=== PATIENT | female | born 1965 | race Hispanic/Latino ===

== ENCOUNTER 2020-07-05 04:23 | Emergency (ER) | payer BC ==
[2020-07-05] MEDS ORDERED: MORPHINE 4 MG/ML SYR ONE ×2 (04:55→06:06)
[2020-07-05] MEDS ORDERED: ONDANSETRON 4 MG/2 ML VIAL ONE (04:55)
[2020-07-05 05:10] LABS: Absolute Lymphocytes (CBC) 2.7 K/uL (0.7-4.9); Basophils % 0.7 % (0-1.3); Hematocrit 42.8 % (36.0-45.0); Lymphocytes % 46.6 % (15.3-44.8); MPV 7.3 fL (7.6-11.3)
[2020-07-05 05:24] LABS: Urine Blood 2+ (NEG); Urine Glucose TRACE (NEG); Urine Protein TRACE (NEG)
[2020-07-05 05:26] LABS: Albumin 3.9 g/dL (3.4-5.0); Bilirubin Direct 0.2 mg/dL (0-0.2); Bilirubin Total 1.1 mg/dL (0.2-1.0); Potassium 3.6 mmol/L (3.5-5.1)
[2020-07-05 05:35] LABS: Urine Bacteria <20 /HPF (<20); Urine Culture Reflex Order REFLEXED; Urine Mucus 1+ /HPF (NONE SEEN)
[2020-07-05] MEDS ORDERED: CEFTRIAXONE/SWI 1gm 1 GM/10 ML SYR ONE (05:45)
--- NOTE | 2020-07-05 05:51 | ER ---
Nurse's Notes [facility] Name: Velma Thompson Age: 55 yrs Sex: Female : 1965 Arrival Date: 07/05/2020 Time: 04:26 Bed 20 Private MD: Diagnosis: Calculus of ureter-Passed;Urinary tract infection, site not specified Presentation: 07/05 04:30 Chief complaint: Patient states: she started having severe abdominal pain several hours bb ago to right flank area. Coronavirus screen: At this time, the client does not indicate any symptoms associated with coronavirus-19. Ebola Screen: No symptoms or risks identified at this time. Initial Sepsis Screen: Does the patient meet any 2 criteria? No. Patient's initial sepsis screen is negative. Does the patient have a suspected source of infection? No. Patient's initial sepsis screen is negative. Risk Assessment: Do you want to hurt yourself or someone else? Patient reports no desire to harm self or others. Onset of symptoms was July 05, 2020. 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 - Social history:: Smoking status: Patient denies any tobacco usage or history of. - Family history:: not pertinent. - Hospitalizations: : No recent hospitalization is reported. Screenin:30 Abuse screen: Denies threats or abuse. Nutritional screening: No deficits noted. bb Tuberculosis screening: No symptoms or risk factors identified. Fall Risk None identified. Assessment: 04:30 General: Appears uncomfortable, Behavior is cooperative, agitated. Pain: Complains of bb pain in right flank Pain currently is 10 out of 10 on a pain scale. Neuro: Level of Consciousness is awake, alert, obeys commands, Oriented to person, place, time, situation. Cardiovascular: Capillary refill < 3 seconds Patient's skin is warm and dry. Respiratory: Respiratory effort is labored, pt is moaning with pain. GI: Abdomen is obese, Reports right flank pain. Derm: Skin is pink, warm \T\ dry. Musculoskeletal: Circulation, motion, and sensation intact. 04:59 Reassessment: pt states the pain has subsided now is 6/10. bb 05:07 Reassessment: pt ambulated with steady gait to the bathroom for urine sample CT at bedside for transport to CT scan. 05:20 Reassessment: Patient is alert, oriented x 3, equal unlabored respirations, skin bb warm/dry/pink. pt returned from CT scan states pain is about the same 6/10 awaiting diagnostic results, family at bedside. 05:50 Reassessment: Patient is alert, oriented x 3, equal unlabored respirations, skin bb warm/dry/pink. Dr Del Real at bedside for discussion of findings and plan of care pt to be discharged home with 3 prescriptions pt verbalized understanding of and agrees to plan of care discharge instructions given pt assisted to exit via wheelchair by this RN accompanied by spouse. Vital Signs: 04:30 BP 147 / 101; Pulse 77; Resp 20 S; Temp 97.7(O); Pulse Ox 100% on R/A; Weight 97.52 kg bb (R); Height 5 ft. 2 in. (157.48 cm) (R); Pain 10/10; 05:21 BP 139 / 69; Pulse 70; Resp 18 S; Pulse Ox 99% on R/A; Pain 6/10; bb 06:00 BP 116 / 75; Pulse 67; Resp 14 S; Pulse Ox 95% on R/A; Pain 4/10; bb 04:30 Body Mass Index 39.32 (97.52 kg, 157.48 cm) bb ED Course: 04:26 Patient arrived in ED. cl3 04:28 Carlos Del Real MD is Attending Physician. rn 04:30 Arm band placed on Patient placed in an exam room, on a stretcher, on pulse oximetry. bb 04:30 Family accompanied patient. bb 04:30 Patient has correct armband on for positive identification. Call light in reach. Side bb rails up X 1. Adult w/ patient. Pulse ox on. NIBP on. 04:45 Initial lab(s) drawn, by me, sent to lab. Inserted saline lock: 20 gauge in left bb antecubital area, using aseptic technique. Blood collected. 04:51 Ciarra Jacob, RN is Primary Nurse. bb 04:53 Triage completed. bb 05:00 Urine collected: clean catch specimen, reagan colored. bb 05:27 CT Stone Protocol In Process Unspecified. EDMS 06:07 No provider procedures requiring assistance completed. IV discontinued, intact, bb bleeding controlled, No redness/swelling at site. Pressure dressing applied. Administered Medications: 04:47 Drug: morphine 4 mg Route: IVP; Site: left antecubital; bb 04:59 Follow up: Response: Pain is decreased; RASS: Alert and Calm (0) bb 04:48 Drug: Zofran (Ondansetron) 4 mg Route: IVP; Site: left antecubital; bb 05:21 Follow up: Response: No adverse reaction bb 05:36 Drug: Rocephin 1 grams Route: IV; Rate: calculated rate; Site: left antecubital; bb 05:42 Follow up: Response: No adverse reaction; IV Status: Completed infusion; IV Intake: 10mlbb 05:50 Drug: morphine 4 mg Route: IVP; Site: left antecubital; bb 06:00 Follow up: Response: Pain is decreased bb Intake: 05:42 IV: 10ml; Total: 10ml. bb Outcome: 05:50 Discharge ordered by . rn 06:08 Discharged to home via wheelchair, with family. bb 06:08 Condition: stable 06:08 Discharge instructions given to patient, Instructed on discharge instructions, follow up and referral plans. medication usage, Demonstrated understanding of instructions, follow-up care, medications, Prescriptions given X 3. 06:10 Patient left the ED. bb Signatures: Dispatcher [employer] EDMS Ciarra Jacob, RUCHI RN Carlos Lynch MD MD rn Lewis, Charde cl3
--- NOTE | 2020-07-05 05:51 | EDPHYS ---
Physician Documentation [facility] Name: Velma Thompson Age: 55 yrs Sex: Female : 1965 Arrival Date: 07/05/2020 Time: 04:26 Bed 20 Private MD: ED Physician Carlos Del Real HPI: 07/05 04:42 This 55 yrs old Female presents to ER via Unassigned with complaints of Low rn Abdominal Pain. 04:42 The patient presents with abdominal pain right lower quadrant. Onset: The rn symptoms/episode began/occurred just prior to arrival. The symptoms radiate to right back. Associated signs and symptoms: Pertinent negatives: blood in stools, diarrhea, fever, shortness of breath. The symptoms are described as shooting. Modifying factors: The symptoms are alleviated by nothing, the symptoms are aggravated by nothing. Severity of pain: At its worst the pain was moderate in the emergency department the pain is unchanged. The patient has not experienced similar symptoms in the past. The patient has not recently seen a physician. 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 - Social history:: Smoking status: Patient denies any tobacco usage or history of. - Family history:: not pertinent. - Hospitalizations: : No recent hospitalization is reported. ROS: 04:42 Constitutional: Negative for fever, chills, and weight loss, Cardiovascular: Negative rn for chest pain, palpitations, and edema, Respiratory: Negative for shortness of breath, cough, wheezing, and pleuritic chest pain, Abdomen/GI: + abd pain Back: + right flank pain : Negative for injury, bleeding, discharge, and swelling, MS/Extremity: Negative for injury and deformity, Neuro: Negative for headache, weakness, numbness, tingling, and seizure. Exam: 04:42 Constitutional: This is a well developed, well nourished patient who is awake, alert, rn appears uncomfortable, moaning Head/Face: Normocephalic, atraumatic. Cardiovascular: Tachycardic, regular Respiratory: No increased work of breathing, no retractions or nasal flaring. Abdomen/GI: soft, non-tender, no masses Skin: Warm, dry MS/ Extremity: Pulses equal, no cyanosis. Neuro: Awake and alert, GCS 15 Vital Signs: 04:30 BP 147 / 101; Pulse 77; Resp 20 S; Temp 97.7(O); Pulse Ox 100% on R/A; Weight 97.52 kg bb (R); Height 5 ft. 2 in. (157.48 cm) (R); Pain 10/10; 05:21 BP 139 / 69; Pulse 70; Resp 18 S; Pulse Ox 99% on R/A; Pain 6/10; bb 06:00 BP 116 / 75; Pulse 67; Resp 14 S; Pulse Ox 95% on R/A; Pain 4/10; bb 04:30 Body Mass Index 39.32 (97.52 kg, 157.48 cm) bb MDM: 04:28 Patient medically screened. rn 05:49 Differential diagnosis: Pyelonephritis, Ureterolithiasis, urinary tract infection. Data rn reviewed: vital signs, nurses notes, lab test result(s), radiologic studies, CT scan, and as a result, I will discharge patient. Counseling: I had a detailed discussion with the patient and/or guardian regarding: the historical points, exam findings, and any diagnostic results supporting the discharge/admit diagnosis, lab results, radiology results, the need for outpatient follow up, to return to the emergency department if symptoms worsen or persist or if there are any questions or concerns that arise at home. Response to treatment: the patient's symptoms have markedly improved after treatment, and as a result, I will discharge patient. Special discussion: I discussed with the patient/guardian in detail that at this point there is no indication for admission to the hospital. It is understood, however, that if the symptoms persist or worsen the patient needs to return immediately for re-evaluation. 07/05 04:29 Order name: Basic Metabolic Panel rn 07/05 04:29 Order name: CBC with Diff; Complete Time: 05:13 rn 07/05 04:29 Order name: Hepatic Function rn 10/21 04:29 Order name: Lipase rn 07/05 04:29 Order name: Urine Microscopic Only rn 07/05 05:16 Order name: Urine Dipstick--Ancillary (enter results); Complete Time: 05:25 tt3 07/05 04:29 Order name: IV Saline Lock; Complete Time: 04:58 rn 07/05 04:29 Order name: Labs collected and sent; Complete Time: 04:58 rn 07/05 04:34 Order name: CT Stone Protocol rn 07/05 05:36 Order name: Urine Culture EDMS 07/05 04:29 Order name: Urine Dipstick-Ancillary (obtain specimen); Complete Time: 05:22 rn Administered Medications: 04:47 Drug: morphine 4 mg Route: IVP; Site: left antecubital; bb 04:59 Follow up: Response: Pain is decreased; RASS: Alert and Calm (0) bb 04:48 Drug: Zofran (Ondansetron) 4 mg Route: IVP; Site: left antecubital; bb 05:21 Follow up: Response: No adverse reaction bb 05:36 Drug: Rocephin 1 grams Route: IV; Rate: calculated rate; Site: left antecubital; bb 05:42 Follow up: Response: No adverse reaction; IV Status: Completed infusion; IV Intake: 10mlbb 05:50 Drug: morphine 4 mg Route: IVP; Site: left antecubital; bb 06:00 Follow up: Response: Pain is decreased bb Disposition: 07/05/20 05:50 Discharged to Home. Impression: Calculus of ureter - Passed, Urinary tract infection, site not specified. - Condition is Stable. - Discharge Instructions: Kidney Stones, Renal Colic, Urinary Tract Infection, Adult. - Prescriptions for Zofran ODT 4 mg Oral tablet,disintegrating - place 1 tablet by TRANSLINGUAL route every 8 hours As needed; 20 tablet. Tylenol- Codeine #3 300-30 mg Oral Tablet - take 1 tablet by ORAL route every 6 hours As needed; 15 tablet. cefpodoxime 100 mg Oral Tablet - take 2 tablet by ORAL route every 12 hours for 10 days take with food; 40 tablet. - Medication Reconciliation Form, Thank You Letter, Antibiotic Education, Prescription Opioid Use form. - Follow up: Private Physician; When: As needed; Reason: Recheck today's complaints, Re-evaluation by your physician. - Problem is new. - Symptoms have improved. Signatures: Dispatcher [employer] Ciarra Glynn RN RN Carlos Lynch MD MD harness cleaner: (The following items were deleted from the chart) 06:10 05:50 07/05/2020 05:50 Discharged to Home. Impression: Calculus of ureter - Passed; bb Urinary tract infection, site not specified. Condition is Stable. Forms are Medication Reconciliation Form, Thank You Letter, Antibiotic Education, Prescription Opioid Use. Follow up: Private Physician; When: As needed; Reason: Recheck today's complaints, Re-evaluation by your physician. Problem is new. Symptoms have improved. rn
[2020-07-05 06:21] VITALS: TEMP 97.7
[2020-07-05 06:39] VITALS: BP 116/75; O2SAT 95
--- NOTE | 2020-07-05 10:08 | RAD REPORT ---
EXAM DESCRIPTION: CT - Stone Protocol - 07/05/2020 6:52 am CLINICAL HISTORY: The patient is 55 years old and is Female; right lower abd pain/flank pain TECHNIQUE: Axial computed tomography images of the abdomen and pelvis without intravenous contrast. Sagittal and coronal reformatted images were created and reviewed. This CT exam was performed usi ng one or more of the following dose reduction techniques: automated exposure control, adjustment o f the mA and/or kV according to patient size, and/or use of iterative reconstruction technique. COMPARISON: No relevant prior studies available. FINDINGS: LUNG BASES: Unremarkable. No mass. No consolidation. ABDOMEN: LIVER: The liver is enlarged and mildly fatty. GALLBLADDER AND BILE DUCTS: No calcified stones. No ductal dilation. PANCREAS: Fatty infiltration of the pancreas is present. No ductal dilation. SPLEEN: Unremarkable. ADRENALS: Unremarkable. No mass. KIDNEYS AND URETERS: Mild right hydroureteronephrosis is present. An obstructing calculus is not seen. Perinephric and periureteral stranding is present. The left kidney is normal. STOMACH AND BOWEL: The stomach is distended with food contents and air. The small bowel is abisai l in caliber. A moderate amount of stool is present throughout colon. There is no mucosal thickening or evidence of bowel obstruction. PELVIS: APPENDIX: The appendix is normal in caliber without surrounding inflammation. BLADDER: The bladder is not well distended. REPRODUCTIVE: Unremarkable as visualized. ABDOMEN and PELVIS: INTRAPERITONEAL SPACE: Unremarkable. No free air. No significant fluid collection. BONES/JOINTS: Multilevel degenerative change of the spine is present. SOFT TISSUES: The soft tissues are normal. VASCULATURE: Atherosclerosis of the vasculature is present. No abdominal aortic aneurysm. LYMPH NODES: Unremarkable. No enlarged lymph nodes. IMPRESSION: Mild right hydroureteronephrosis without obstructing calculus. Findings suggest a recent ly passed stone. Electronically signed by: Veda Benitez MD 07/05/2020 5:37 AM CDT Due to temporary technical issues with the PACS/Fluency reporting system, reports are being signed by the in house radiologist without review as a courtesy to ensure prompt reporting. The interpreting r adiologist is fully responsible for the content of the report.
== END 2020-07-05 06:10 | disposition home or self-care (01) ==
LOC: ER 04:23
DX: N20.1 Calculus of ureter (principal); N39.0 Urinary tract infection, site not specified
CPT/HCPCS: 87088; 85025; 87086; 80048; 36415; 80076; 83690; 76377; 74176; J0696; J2405; 81003; 81015

== ENCOUNTER 2021-04-27 12:29 | Inpatient (IN) | payer BC ==
[2021-04-27] MEDS ORDERED: ALBUTEROL 2.5 MG/3 ML NEB SOL ONE (13:53)
[2021-04-27] MEDS ORDERED: IPRATROPIUM BROM 0.5MG/2.5ML ONE ×3 (13:53→21:22)
[2021-04-27 13:58] LABS: Absolute Lymphocytes (CBC) 0.7 K/uL (0.7-4.9); Basophils % 0.6 % (0-1.3); Hematocrit 41.9 % (36.0-45.0); Lymphocytes % 11.8 % (15.3-44.8); MPV 6.9 fL (7.6-11.3); RBC Red Blood Cell Count 4.56 M/uL (3.86-4.86)
[2021-04-27 14:18] LABS: Protime INR 1.19
--- NOTE | 2021-04-27 14:41 | RAD REPORT ---
EXAM DESCRIPTION: RAD - Chest Single View - 04/27/2021 2:34 pm CLINICAL HISTORY: SOB COMPARISON: No comparisons FINDINGS: Moderate patchy bilateral airspace disease per The heart size is within normal limits.No a cute osseous abnormality. No significant pleural effusions or pneumothorax. IMPRESSION: Moderate patchy bilateral airspace disease concerning for multifocal pneumonia, includin g Covid-19.
[2021-04-27 14:46] LABS: ALT/SGPT 45 U/L (12-78); AST/SGOT 77 U/L (15-37); Albumin 3.6 g/dL (3.4-5.0); Alkaline Phosphatase 100 U/L (45-117); BUN Blood Urea Nitrogen 12 mg/dL (7-18); Bicarbonate 30 mmol/L (21-32); Bilirubin Direct 0.3 mg/dL (0-0.2); Bilirubin Total 0.8 mg/dL (0.2-1.0); Ferritin 2342.9 ng/mL (8-388); Glucose Level 122 mg/dL (74-106); Lipase 152 U/L (73-393); Potassium 3.9 mmol/L (3.5-5.1); Protein, Total 8.4 g/dL (6.4-8.2); Sodium Level 133 mmol/L (136-145); Troponin (Emerg Dept Use Only) < 0.02 ng/mL (0.0-0.045)
[2021-04-27] MEDS ORDERED: LEVALBUTEROL 1.25 MG/3 ML NEB ONE (14:50)
[2021-04-27] MEDS ORDERED: dexAMETHasone 10 MG/ML VIAL ONE (14:50)
--- NOTE | 2021-04-27 15:33 | ER ---
Nurse's Notes [facility] Name: Velma Thompson Age: 56 yrs Sex: Female : 1965 Arrival Date: 04/27/2021 Time: 13:09 Bed 6 Private MD: Diagnosis: Other viral pneumonia;SARS-associated coronavirus as the cause of diseases classified elsewhere;Respiratory failure, unspecified with hypoxia-60% plus at home on room air per EMS Presentation: 04/27 13:10 Chief complaint: EMS states: Pt diagnosised with COVID two days ago. Reports SOB today. ss O2sat 69% RA. Coronavirus screen: Client reports previous positive COVID test result. Date of collection: April 25, 2021. Care prior to arrival: 13:10 Method Of Arrival: EMS: [facility] ss 13:10 Acuity: JENNIFER 3 ss 13:56 Acuity: JENNIFER 2 iw Triage Assessment: 13:13 General: Appears uncomfortable, Behavior is calm, cooperative, quiet, Reports fatigue ss for 12-24 hours. Pain: Denies pain. Respiratory: Reports shortness of breath at rest on exertion. Historical: - Allergies: 14:56 No Known Allergies; iw - PMHx: 14:56 Arthritis; iw - Immunization history:: Client reports having NOT received the Covid vaccine. Screenin:05 Abuse screen: Denies threats or abuse. Denies injuries from another. Nutritional iw screening: No deficits noted. Tuberculosis screening: No symptoms or risk factors identified. Assessment: 15:10 Reassessment: pt O2 sat dropped to 73% while on breathing treatment, placed back on NRB iw (flush), sats up to 96%. 15:50 Reassessment: pt placed on O2 bubbler at 15 L NC, sats at 86%, pt laid on her right iw side. 04/28 20:03 Reassessment: report called to receiving nurse on fourth floor, Pt left ED via hospital zb bed, tolerating well. Vital Signs: 04/27 13:10 Pulse 90; Pulse Ox 94% on Non-rebreather mask; ss 14:45 Weight 83.91 kg; ss 14:58 BP 132 / 73; Pulse 105; Resp 26 S; Temp 98.0(TE); Pulse Ox 84% on Nebulizer Mask; iw 18:23 BP 147 / 84; Pulse 98; Resp 26 S; Pulse Ox 93% 15 lpm ; iw ED Course: 13:09 Patient arrived in ED. ss 13:13 Triage completed. ss 13:13 Jagdish Valdivia NP is PHCP. pm1 13:13 Oj Kirby MD is Attending Physician. pm1 13:47 Inserted saline lock: 20 gauge in right antecubital area, using aseptic technique. pa Blood collected. 13:52 Abena Mcgarry RN is Primary Nurse. iw 14:13 Arm band placed on. iw 14:34 CXR XRAY In Process Unspecified. EDMS 15:22 No provider procedures requiring assistance completed. iw 15:31 Viv Beatty MD is Hospitalizing Provider. kdr 16:44 CT Chest For PE Angio In Process Unspecified. EDMS 04/28 19:27 Primary Nurse role handed off by Abena Mcgarry, RUCHI mw2 Administered Medications: 04/27 14:58 Drug: Decadron - Dexamethasone 10 mg Route: IVP; Site: right antecubital; iw 14:58 Drug: Xopenex (levalbuterol) (3) 1.25 mg Route: Inhalation; iw 15:20 Drug: Lovenox (enoxaparin) 1 mg/kg Route: Sub-Q; Site: right lower abdomen; iw Outcome: 15:32 Decision to Hospitalize by Provider. kdr 04/28 21:10 Patient left the ED. ea Signatures: Dispatcher [employer] EDNY Oj Kirby MD MD kdr Williams, Irene, RN RN Renetta Alejandre RN RN ss Marinas, Patrick, NP SECURITY INSTALLATION TECHNICIAN pm1 Rosalia Duong pa Kathy Leroy RN RN Adwoa Hadley mw2 Daphnie Gomez RN RN zb Corrections: (The following items were deleted from the chart) 04/27 18:15 14:58 BP 132 / 73; Pulse 105bpm; Resp 26bpm; Spontaneous; Pulse Ox 84% Nebulizer Mask; iw iw
--- NOTE | 2021-04-27 15:33 | EDPHYS ---
Physician Documentation [facility] Name: Velma Thompson Age: 56 yrs Sex: Female : 1965 Arrival Date: 04/27/2021 Time: 13:09 Bed 6 Private MD: ED Physician Oj Kirby HPI: 04/27 19:09 This 56 yrs old Female presents to ER via EMS with complaints of Shortness Of kdr Breath - COVID+. 19:09 The patient has shortness of breath at rest, with light activity. Onset: The kdr symptoms/episode began/occurred gradually, 2 day(s) ago. Duration: The symptoms are continuous, and are steadily getting worse. The patient's shortness of breath is aggravated by coughing, drinking, exertion, light activity. Associated signs and symptoms: Pertinent positives: chest pain, non-productive cough, nausea. Severity of symptoms: At their worst the symptoms were moderate just prior to arrival, in the emergency department the symptoms are unchanged. The patient has not experienced similar symptoms in the past. The patient has not recently seen a physician. Shortness of breath the patient was diagnosed with Covid 2 days ago today, her oxygen saturation was 69% on room air. Historical: - Allergies: 14:56 No Known Allergies; iw - PMHx: 14:56 Arthritis; iw - Immunization history:: Client reports having NOT received the Covid vaccine. ROS: 19:09 Constitutional: Negative for fever, chills, and weight loss, Eyes: Negative for injury, kdr pain, redness, and discharge, Neck: Negative for injury, pain, and swelling, Cardiovascular: Negative for chest pain, palpitations, and edema, Abdomen/GI: Negative for abdominal pain, nausea, vomiting, diarrhea, and constipation, Back: Negative for injury and pain, : Negative for injury, bleeding, discharge, and swelling, MS/Extremity: Negative for injury and deformity, Skin: Negative for injury, rash, and discoloration, Neuro: Negative for headache, weakness, numbness, tingling, and seizure activity. Psych: Negative for depression, anxiety, suicide ideation, homicidal ideation, and hallucinations, Allergy/Immunology: Negative for hives, rash, and allergies, Endocrine: Negative for neck swelling, polydipsia, polyuria, polyphagia, and marked weight changes, Hematologic/Lymphatic: Negative for swollen nodes, abnormal bleeding, and unusual bruising. 19:09 Respiratory: Positive for cough, "sounds productive", shortness of breath, on exertion. wheezing, inspiratory, expiratory. Exam: 19:09 Constitutional: This is a well developed, well nourished patient who is awake, alert, kdr and in no acute distress. Head/Face: Normocephalic, atraumatic. Eyes: Pupils equal round and reactive to light, extra-ocular motions intact. Lids and lashes normal. Conjunctiva and sclera are non-icteric and not injected. Cornea within normal limits. Periorbital areas with no swelling, redness, or edema. Neck: Trachea midline, no thyromegaly or masses palpated, and no cervical lymphadenopathy. Supple, full range of motion without nuchal rigidity, or vertebral point tenderness. No Meningismus. Chest/axilla: Normal chest wall appearance and motion. Nontender with no deformity. No lesions are appreciated. Cardiovascular: Regular rate and rhythm with a normal S1 and S2. No gallops, murmurs, or rubs. Normal PMI, no JVD. No pulse deficits. Abdomen/GI: Soft, non-tender, with normal bowel sounds. No distension or tympany. No guarding or rebound. No evidence of tenderness throughout. Back: No spinal tenderness. No costovertebral tenderness. Full range of motion. Skin: Warm, dry with normal turgor. Normal color with no rashes, no lesions, and no evidence of cellulitis. MS/ Extremity: Pulses equal, no cyanosis. Neurovascular intact. Full, normal range of motion. Neuro: Awake and alert, GCS 15, oriented to person, place, time, and situation. Cranial nerves II-XII grossly intact. Motor strength 5/5 in all extremities. Sensory grossly intact. Cerebellar exam normal. Normal gait. Psych: Awake, alert, with orientation to person, place and time. Behavior, mood, and affect are within normal limits. 19:09 Respiratory: mild respiratory distress is noted, Respirations: normal, Breath sounds: rales, that are moderate, are scattered, are heard diffusely, bronchial sounds, that are mild, rhonchi, that are moderate, are located in both bases, stridor, is not appreciated, + upper airway congestion. wheezing: Vital Signs: 13:10 Pulse 90; Pulse Ox 94% on Non-rebreather mask; ss 14:45 Weight 83.91 kg; ss 14:58 BP 132 / 73; Pulse 105; Resp 26 S; Temp 98.0(TE); Pulse Ox 84% on Nebulizer Mask; iw 18:23 BP 147 / 84; Pulse 98; Resp 26 S; Pulse Ox 93% 15 lpm ; iw MDM: 15:32 Patient medically screened. kdr 19:09 Data reviewed: vital signs, nurses notes, lab test result(s), EKG, radiologic studies. kdr Counseling: I had a detailed discussion with the patient and/or guardian regarding: the historical points, exam findings, and any diagnostic results supporting the discharge/admit diagnosis, lab results, radiology results, the need for outpatient follow up. 04/27 13:15 Order name: BMP kdr 04/27 13:15 Order name: Blood Culture Adult (2) kdr 04/27 13:15 Order name: C-Reactive Protein kdr 04/27 13:15 Order name: CBC with Diff kdr 04/27 13:15 Order name: D-Dimer kdr 04/27 13:15 Order name: Ferritin; Complete Time: 14:55 kdr 04/27 13:15 Order name: Flu kdr 04/27 13:15 Order name: LFT's; Complete Time: 14:55 kdr 04/27 13:15 Order name: Lactate; Complete Time: 14:55 kdr 04/27 13:15 Order name: Lipase; Complete Time: 14:55 kdr 04/27 13:15 Order name: PT-INR; Complete Time: 14:55 kdr 04/27 13:15 Order name: Procalcitonin; Complete Time: 16:24 kdr 04/27 13:15 Order name: Ptt, Activated; Complete Time: 14:55 kdr 04/27 13:15 Order name: Strep kdr 04/27 13:15 Order name: Troponin (emerg Dept Use Only); Complete Time: 14:55 kdr 04/27 13:15 Order name: Urine Microscopic Only kdr 04/27 13:15 Order name: Basic Metabolic Panel; Complete Time: 14:55 EDMS 04/27 13:15 Order name: Blood Culture EDMS 04/27 13:15 Order name: C-Reactive Protein; Complete Time: 14:55 EDMS 04/27 13:15 Order name: CBC with Automated Diff; Complete Time: 14:55 EDMS 04/27 13:15 Order name: D-Dimer; Complete Time: 14:55 EDMS 04/27 18:41 Order name: Comprehensive Metabolic Panel EDMS 04/27 18:41 Order name: C-Reactive Protein EDMS 04/27 18:41 Order name: C-Reactive Protein EDMS 04/27 18:41 Order name: Comprehensive Metabolic Panel EDMS 04/27 18:41 Order name: D-Dimer EDMS 04/27 18:41 Order name: Ferritin EDMS 04/27 18:41 Order name: Ferritin EDMS 04/27 18:41 Order name: Lipid Profile EDMS 04/27 18:41 Order name: Lipid Profile EDMS 04/27 13:15 Order name: CXR XRAY; Complete Time: 14:55 kdr 04/27 13:15 Order name: EKG; Complete Time: 13:16 kdr 04/27 13:15 Order name: Cardiac monitoring kdr 04/27 13:15 Order name: Droplet/Contact Precautions kdr 04/27 13:15 Order name: EKG - Nurse/Tech kdr 04/27 13:15 Order name: [place] kdr 04/27 13:15 Order name: IV Start kdr 04/27 13:15 Order name: Labs collected and sent kdr 04/27 13:15 Order name: O2 Per Protocol kdr 04/27 13:15 Order name: O2 Sat Monitoring kdr 04/27 13:15 Order name: Urine Dipstick-Ancillary (obtain specimen) kdr 04/27 14:30 Order name: CT Chest For PE Angio kdr 04/27 18:42 Order name: Heart Healthy EDMS 04/27 18:42 Order name: CBC with Automated Diff EDMS 04/27 18:42 Order name: CBC with Automated Diff EDMS 04/27 18:42 Order name: D-Dimer EDMS Administered Medications: 14:58 Drug: Decadron - Dexamethasone 10 mg Route: IVP; Site: right antecubital; iw 14:58 Drug: Xopenex (levalbuterol) (3) 1.25 mg Route: Inhalation; iw 15:20 Drug: Lovenox (enoxaparin) 1 mg/kg Route: Sub-Q; Site: right lower abdomen; iw Disposition Summary: 04/27/21 15:32 Hospitalization Ordered Hospitalization Status: Inpatient Admission kdr Provider: Viv Beatty kdr Condition: Fair kdr Problem: new kdr Symptoms: have improved kdr Bed/Room Type: Standard kdr Location: Telemetry/MedSurg (Inpatient)(04/28/21 19:03) Room Assignment: 420(04/28/21 19:03) dw Diagnosis - Other viral pneumonia kdr - SARS-associated coronavirus as the cause of diseases classified elsewhere kdr - Respiratory failure, unspecified with hypoxia - 60% plus at home on room air per EMSkdr Forms: - Medication Reconciliation Form kdr - SBAR form kdr Signatures: Dispatcher [employer] EDMS Clemencia Briceno RN RN mw Velia Renteria RN RUCHI dw jO Kirby MD MD kdr Abena Mcgarry RN RN Renetta Alejandre RN RN ss Corrections: (The following items were deleted from the chart) 20:51 15:32 Telemetry/MedSurg (Inpatient) [facility] 20:51 15:32 kdr 04/28 19:03 04/27 20:51 [facility] ER HOLD [facility] 04/28 19:03 04/27 20:51 ER[facility]- [facility]
[2021-04-27] MEDS ORDERED: ENOXAPARIN 80 MG/0.8 ML SQ ONE (16:55)
--- NOTE | 2021-04-27 16:57 | RAD REPORT ---
EXAM DESCRIPTION: CT - Chest For Pe Angio - 04/27/2021 4:44 pm CLINICAL HISTORY: SOB COMPARISON: No comparisons FINDINGS: Chest Wall: No suspicious thyroid nodules or pathologic lymphadenopathy. Lungs: Moderate bilateral airspace disease Pleura: No significant effusions or pneumothorax. Mediastinum/hima: No pathologic lymphadenopathy. Pulmonary arteries/Aorta: No filling defect identified. No aortic aneurysm. Heart: No significant pericardial effusion. Normal heart size. Upper abdomen: No acute abnormality. Hepatic steatosis. Bones: No acute abnormality. IMPRESSION: Negative for pulmonary embolism. Moderate bilateral airspace disease concerning for mult ifocal pneumonia, including Covid-19.
[2021-04-27] MEDS ORDERED: ONDANSETRON 4 MG/2 ML VIAL IV PRN (18:38)
[2021-04-27] MEDS ORDERED: MORPHINE 2 MG/ML SYR IV PRN (18:38)
[2021-04-27] MEDS: NA CHLORIDE 0.9% 1,000 ML IV SCH (19:00)
[2021-04-27] MEDS: IPRATROPIUM BROM 0.5MG/2.5ML NEB SCH (19:50)
[2021-04-27] MEDS ORDERED: ALBUTEROL 2.5 MG/3 ML NEB SOL NEB PRN (20:00)
[2021-04-27] MEDS ORDERED: METHYLPREDNISOLONE 125 MG INJ IV SCH (21:00)
[2021-04-27] MEDS: APIXABAN 5 MG TABLET PO SCH (21:00)
[2021-04-27] MEDS ORDERED: ACETAMINOPHEN 500 MG TAB ONE (21:21)
[2021-04-27] MEDS ORDERED: METHYLPREDNISOLONE 40 MG INJ ONE (21:22)
[2021-04-27] MEDS ORDERED: APIXABAN 5 MG TABLET ONE (21:22)
[2021-04-27] MEDS ORDERED: LORAZEPAM 0.5 MG TABLET PO ONE (21:55)
[2021-04-27] MEDS ORDERED: LORAZEPAM 0.5 MG TABLET ONE (22:20)
[2021-04-27] MEDS ORDERED: NA CHLORIDE 0.9% 1,000 ML ONE (23:56)
[2021-04-28] MEDS: IPRATROPIUM BROM 0.5MG/2.5ML NEB SCH ×4 (02:24→20:00)
[2021-04-28] MEDS ORDERED: IPRATROPIUM BROM 0.5MG/2.5ML ONE ×2 (02:47→08:20)
[2021-04-28] MEDS: ACETAMINOPHEN 500 MG TAB PO PRN (05:14)
[2021-04-28] MEDS ORDERED: ACETAMINOPHEN 500 MG TAB ONE (05:28)
--- NOTE | 2021-04-28 05:50 | P.HP ---
Certification for Inpatient Patient admitted to: Inpatient With expected LOS: >2 Midnights Patient will require the following post-hospital care: None Practitioner: I am a practitioner with admitting privileges, knowledge of patient current condition, hospital course, and medical plan of care. Services: Services provided to patient in accordance with Admission requirements found in Title 42 Section 412.3 of the Code of Federal Regulations Patient History Date of Service: 04/27/21 Reason for admission: Acute COVID-19 pneumonia History of Present Illness: Patient is a 56-year-old female came to the hospital with difficulty breathing. Patient was having respiratory distress. Patient could not catch her breath so she came into the emergency room for further evaluation. Patient's was diagnose with COVID-19 pneumonia on Friday about 5 days ago. She was tested a couple of days ago. She was hypoxic and came into the ER for evaluation. Allergies No Known Allergies Allergy (Unverified 04/27/21 21:49) - Past Medical/Surgical History Past Medical History: Patient denies medical history Past Surgical History: Patient denies surgical history - Family History Father Family History: Reviewed- Non-Contributory - Social History Smoking Status: Never smoker Alcohol use: No CD- Drugs: No Review of Systems 10-point ROS is otherwise unremarkable Physical Examination - Vital Signs Temperature: 98 F Blood Pressure: 140/80 Pulse: 88 Respirations: 18 Pulse Ox (%): 85 - Physical Exam General: Alert, In no apparent distress HEENT: Atraumatic, PERRLA, Mucous membr. moist/pink, EOMI, Sclerae nonicteric Neck: Supple, 2+ carotid pulse no bruit, No LAD, Without JVD or thyroid abnormality Respiratory: Diminished, Expiratory wheezes Cardiovascular: Regular rate/rhythm, Normal S1 S2, No murmurs Gastrointestinal: Normal bowel sounds, Soft and benign, Non-distended, No tenderness Musculoskeletal: No clubbing, No swelling, No tenderness Integumentary: No rashes Neurological: Normal gait, Normal speech, Normal strength at 5/5 x4 extr, Normal tone, Sensation intact, Cranial nerves 3-12 intact, Normal affect Lymphatics: No axilla or inguinal lymphadenopathy - Studies Laboratory Data (last 24 hrs) 04/27/21 13:40: PT 13.7 H, INR 1.19, APTT 26.4 04/27/21 13:40: WBC 6.20, Hgb 14.3, Hct 41.9, Plt Count 252 04/27/21 13:40: Sodium 133 L, Potassium 3.9, BUN 12, Creatinine 0.71, Glucose 122 H, Total Bilirubin 0.8, AST 77 H, ALT 45, Alkaline Phosphatase 100, Lipase 152 Assessment & Plan - Problems (Diagnosis) (1) Pneumonia due to COVID-19 virus Current Visit: Yes Status: Acute - Plan 1. Continue with IV steroids 2. Monitor inflammatory markers 3. Repeat chest x-ray if symptoms are progressively worsening 4. O2 per protocol 5. Pulmonary consultation if symptoms worsen 6. Continue with albuterol inhaler therapy; also supportive care 7. GI and DVT prophylaxis Discharge Plan: Home Plan to discharge in: Greater than 2 days - Advance Directives Does patient have a Living Will: No Does patient have a Durable POA for Healthcare: No - Code Status/Comfort Care Code Status Assessed: Yes Code Status: Full Code Critical Care: No Time Spent Managing PTS Care (In Minutes): 35
[2021-04-28 06:03] LABS: Absolute Lymphocytes (CBC) 0.6 K/uL (0.7-4.9); Basophils % 0.1 % (0-1.3); Hematocrit 40.2 % (36.0-45.0); Lymphocytes % 10.1 % (15.3-44.8); MPV 7.3 fL (7.6-11.3); RBC Red Blood Cell Count 4.34 M/uL (3.86-4.86)
--- NOTE | 2021-04-28 06:17 | P.PN ---
Subjective Date of Service: 04/28/21 Chief Complaint: Acute COVID-19 pneumonia Subjective: Other (Patient requiring 15 L per nasal cannula. Still with increased cough. Poor inspiration and expiration.) Physical Examination - Vital Signs Temperature: 98 F Blood Pressure: 140/80 Pulse: 88 Respirations: 18 Pulse Ox (%): 85 - Studies Laboratory Data (last 24 hrs) 04/27/21 13:40: PT 13.7 H, INR 1.19, APTT 26.4 04/27/21 13:40: WBC 6.20, Hgb 14.3, Hct 41.9, Plt Count 252 04/27/21 13:40: Sodium 133 L, Potassium 3.9, BUN 12, Creatinine 0.71, Glucose 122 H, Total Bilirubin 0.8, AST 77 H, ALT 45, Alkaline Phosphatase 100, Lipase 152 Assessment & Plan Discharge Plan: Home Plan to discharge in: Greater than 2 days Physician Review Additional Text: COVID: Positive, unvaccinated CT scan chest: COMPARISON: No comparisons FINDINGS: Chest Wall: No suspicious thyroid nodules or pathologic lymphade nopathy. Lungs: Moderate bilateral airspace disease Pleura: No significant effusions or pneumothorax. Mediastinum/hima: No pathologic lymphadenopathy. Pulmonary arteries/Aorta: No filling defect identified. No aortic aneurysm. Heart: No significant pericardial effusion. Normal heart size. Upper abdomen: No acute abnormality. Hepatic steatosis. Bones: No acute abnormality. IMPRESSION: Negative for pulmonary embolism. Moderate bilateral airspace disease concerning for multifocal pneumonia, including Covid-19. Initial Chest x-ray: COMPARISON: No comparisons FINDINGS: Moderate patchy bilateral airspace disease per The heart size is within normal limits.No acute osseous abnormality. No significant pleural effusions or pneumothorax. IMPRESSION: Moderate patchy bilateral airspace disease concerning for multifocal pneumonia, including Covid-19. Physical exam: General: Alert, In no apparent distress HEENT: Atraumatic, PERRLA, Mucous membr. moist/pink, EOMI, Sclerae nonicteric Neck: Supple, 2+ carotid pulse no bruit, No LAD, Without JVD or thyroid abnormality Respiratory: Poor inspiration and expiration. Decreased at the bases. Curre ntly on 15 L per nasal cannula Cardiovascular: Regular rate/rhythm, Normal S1 S2, No murmurs Gastrointestinal: Normal bowel sounds, Soft and benign, Non-distended, No tenderness Musculoskeletal: No clubbing, No swelling, No tenderness Integumentary: No rashes Neurological: Normal gait, Normal speech, Normal strength at 5/5 x4 extr, Normal tone, Sensation intact, Cranial nerves 3-12 intact, Normal affect Lymphatics: No axilla or inguinal lymphadenopathy Impression: Dyspnea secondary to acute respiratory failure with hypoxia secondary to bilateral Covid pneumonia, unvaccinated Plan: Medications reviewed. Patient still requiring high levels of oxygen. Currently on 15 L. Respiratory to continue to wean off oxygen to maintain sats above 93%. Medications reviewed. Will increase steroids to 60 mg 1 pill to 3 times a day. Will provide ivermectin and vitamin supplementation. Will provide aspirin, Pepcid. Patient likely a candidate for baricitinib. This was addressed in detail with patient. Pulmonology consulted. Await recommendations. Encourage proning, ambulation and incentive spirometer. Continue to monitor CRP, ferritin and liver function test. Discontinue IV fluids. Encourage oral intake. Recheck chest x-ray tomorrow. Continue supportive care. DVT prophylaxisEliquis in place. Will provide medication for cough. Need to obtain and verify home medication. Will provide medication for pain. Continue to reassess daily. Anticipate improvement over the next week. CODE STATUS: Full code DVT prophylaxis: Eliquis Advance care [id number] minutes: Home at discharge Time Spent Managing Pts Care (In Minutes): 55
[2021-04-28 06:38] LABS: Albumin 3.2 g/dL (3.4-5.0); Bilirubin Total 0.6 mg/dL (0.2-1.0); Ferritin 2118.5 ng/mL (8-388); Potassium 3.8 mmol/L (3.5-5.1); Protein, Total 7.9 g/dL (6.4-8.2)
[2021-04-28] MEDS ORDERED: METHYLPREDNISOLONE 40 MG INJ ONE (08:08)
[2021-04-28] MEDS ORDERED: APIXABAN 5 MG TABLET ONE (08:08)
[2021-04-28] MEDS ORDERED: NA CHLORIDE 0.9% 1,000 ML ONE (08:08)
[2021-04-28] MEDS: NA CHLORIDE 0.9% 1,000 ML IV SCH (08:20)
[2021-04-28] MEDS ORDERED: GUAIFENESIN/CODEINE 5ML UCUP PO PRN (08:30)
[2021-04-28] MEDS ORDERED: HYDROCODONE/APAP 7.5/325 MG TAB PO PRN (08:36)
[2021-04-28] MEDS ORDERED: TRAMADOL HCL 50 MG TAB PO PRN (08:36)
[2021-04-28] MEDS: ASCORBIC ACID 500 MG TABLET PO SCH ×4 (09:00→22:37)
[2021-04-28] MEDS: APIXABAN 5 MG TABLET PO SCH ×2 (09:00→22:37)
[2021-04-28] MEDS: METHYLPREDNISOLONE 125 MG INJ IV SCH ×3 (09:00→22:36)
[2021-04-28] MEDS: VITAMIN D 1000 UNIT TAB PO SCH (09:00)
[2021-04-28] MEDS: ZINC SULFATE 220 MG CAP PO SCH (09:00)
[2021-04-28] MEDS: ASPIRIN EC 81 MG TAB PO SCH (09:00)
[2021-04-28] MEDS: FAMOTIDINE 20 MG TAB PO SCH ×2 (09:00→22:36)
[2021-04-28] MEDS: THIAMINE HCL 100 MG TABLET PO SCH ×2 (09:00→22:37)
[2021-04-28] MEDS ORDERED: ASCORBIC ACID 500 MG TABLET ONE ×2 (12:27→17:07)
[2021-04-28] MEDS ORDERED: ASPIRIN 81 MG CHEWABLE TABLET ONE (12:27)
[2021-04-28] MEDS ORDERED: ZINC SULFATE 220 MG CAP ONE (12:27)
[2021-04-28] MEDS ORDERED: THIAMINE HCL 100 MG TABLET ONE (12:27)
[2021-04-28] MEDS ORDERED: VITAMIN D 1000 UNIT TAB ONE (12:28)
[2021-04-28] MEDS ORDERED: FAMOTIDINE 20 MG TAB ONE (12:28)
[2021-04-28] MEDS ORDERED: METHYLPREDNISOLONE 125 MG INJ ONE (17:07)
[2021-04-28] MEDS: BARICITINIB 2 MG TABLET PO SCH (17:17)
[2021-04-29] MEDS: IPRATROPIUM BROM 0.5MG/2.5ML NEB SCH ×4 (03:05→20:30)
[2021-04-29 05:45] LABS: Absolute Lymphocytes (CBC) 0.8 K/uL (0.7-4.9); Basophils % 0.1 % (0-1.3); Hematocrit 37.1 % (36.0-45.0); Lymphocytes % 8.1 % (15.3-44.8); MPV 7.1 fL (7.6-11.3); RBC Red Blood Cell Count 3.96 M/uL (3.86-4.86)
--- NOTE | 2021-04-29 06:20 | P.PN ---
Subjective Date of Service: 04/29/21 Chief Complaint: Acute COVID-19 pneumonia Subjective: Other (Patient reports slight improvement. High flow 100%) Physical Examination - Vital Signs Temperature: 97 F Blood Pressure: 124/60 Pulse: 87 Respirations: 18 Pulse Ox (%): 92 Assessment & Plan Discharge Plan: LTAC Plan to discharge in: 48 Hours Physician Review Additional Text: COVID: Positive, unvaccinated CT scan chest: COMPARISON: No comparisons FINDINGS: Chest Wall: No suspicious thyroid nodules or pathologic lymphadenopathy. Lungs: Moderate bilateral airspace disease Pleura: No significant effusions or pneumothorax. Mediastinum/hima: No pathologic lymphadenopathy. Pulmonary arteries/Aorta: No filling defect identified. No aortic aneurysm. Heart: No significant pericardial effusion. Normal heart size. Upper abdomen: No acute abnormality. Hepatic steatosis. Bones: No acute abnormality. IMPRESSION: Negative for pulmonary embolism. Moderate bilateral airspace disease concerning for multifocal pneumonia, including Covid-19. Initial Chest x-ray: COMPARISON: No comparisons FINDINGS: Moderate patchy bilateral airspace disease per The heart size is within normal limits.No acute osseous abnormality. No significant pleural effusions or pneumothorax. IMPRESSION: Moderate patchy bilateral airspace disease concerning for multifocal pneumonia, including Covid-19. Follow-up chest x-ray 04/29/2021: COMPARISON: Chest Single View dated 04/27/2021 FINDINGS: Moderate to severe widespread bilateral airspace disease which is un changed since 04/27/2021. The heart size is within normal limits.No acute osseous abnormality. No significant pleural effusions or pneumothorax. IMPRESSION: Unchanged widespread bilateral airspace disease concerning for multifocal pneumonia. Physical exam: General: Alert, In no apparent distress HEENT: Atraumatic, PERRLA, Mucous membr. moist/pink, EOMI, Sclerae nonicteric Neck: Supple, 2+ carotid pulse no bruit, No LAD, Without JVD or thyroid abnormality Respiratory: Poor inspiration and expiration. Currently on high flow 100%. Cardiovascular: Regular rate/rhythm, Normal S1 S2, No murmurs Gastrointestinal: Normal bowel sounds, Soft and benign, Non-distended, No tenderness Musculoskeletal: No clubbing, No swelling, No tenderness Integumentary: No rashes Neurological: Normal gait, Normal speech, Normal strength at 5/5 x4 extr, Normal tone, Sensation intact, Cranial nerves 3-12 intact, Normal affect Lymphatics: No axilla or inguinal lymphadenopathy Impression: Dyspnea secondary to acute respiratory failure with hypoxia secondary to bilateral Covid pneumonia, unvaccinated Hyperlipidemia Rheumatoid arthritis Plan: Patient remains on high flow at 100%. Patient reports slight improvement. Continue with IV steroids and baricitinib. Continue vitamin supplementation. Continue with pulmonology recommendations. Continue to monitor closely. Patient remains on Eliquis for DVT prophylaxis. Continue incentive spirometer, proning, ambulation. Discussed the possibility of long-term acute care facility placement for the patient due to her slow progress. Patient agreeable. Will discuss with aids social worker to help with this. Home medications restarted including sulfasalazine, Crestor, gabapentin and Cymbalta. CODE STATUS: Full code DVT prophylaxis: Eliquis Advance care [id number] minutes: Home at discharge Time Spent Managing Pts Care (In Minutes): 55
[2021-04-29 06:39] LABS: Albumin 2.8 g/dL (3.4-5.0); Bilirubin Total 0.5 mg/dL (0.2-1.0); C-Reactive Protein 56.9 mg/L (<3.00); Ferritin 2171.1 ng/mL (8-388); Magnesium 2.4 mg/dL (1.8-2.4); Potassium 4.8 mmol/L (3.5-5.1)
[2021-04-29 06:41] LABS: Blood Morphology Comment NOT SEEN (NOT SEEN); Platelet Estimate ADEQ; White Blood Cell Scan OK (OK)
--- NOTE | 2021-04-29 08:25 | RAD REPORT ---
EXAM DESCRIPTION: RAD - Chest Single View - 04/29/2021 4:49 am CLINICAL HISTORY: follow up COVID COMPARISON: Chest Single View dated 04/27/2021 FINDINGS: Moderate to severe widespread bilateral airspace disease which is unchanged since 04/27/20 21. The heart size is within normal limits.No acute osseous abnormality. No significant pleural effus ions or pneumothorax. IMPRESSION: Unchanged widespread bilateral airspace disease concerning for multifocal pneumonia.
[2021-04-29] MEDS: VITAMIN D 1000 UNIT TAB PO SCH (09:45)
[2021-04-29] MEDS: METHYLPREDNISOLONE 125 MG INJ IV SCH ×3 (09:46→21:33)
[2021-04-29] MEDS: FAMOTIDINE 20 MG TAB PO SCH ×2 (09:46→21:34)
[2021-04-29] MEDS: ZINC SULFATE 220 MG CAP PO SCH (09:46)
[2021-04-29] MEDS: BARICITINIB 2 MG TABLET PO SCH (09:46)
[2021-04-29] MEDS: ASCORBIC ACID 500 MG TABLET PO SCH ×4 (09:47→21:33)
[2021-04-29] MEDS: ASPIRIN EC 81 MG TAB PO SCH (09:47)
[2021-04-29] MEDS: APIXABAN 5 MG TABLET PO SCH ×2 (09:47→21:33)
[2021-04-29] MEDS: THIAMINE HCL 100 MG TABLET PO SCH ×2 (09:47→21:33)
--- NOTE | 2021-04-29 13:50 | P.CNS ---
Date of Consult: 04/29/21 Reason for Consult: COVID penumonia Chief Complaint: Acute COVID-19 pneumonia History of Present Illness: Age 56 AW resp failure from COVID penumonia Allergies No Known Allergies Allergy (Verified 04/29/21 01:02) Home Medications: Celecoxib [Celebrex*] 60 mg PO DAILY 04/29/21 Duloxetine [Cymbalta *] 60 mg PO DAILY 04/29/21 Gabapentin 300 mg PO DAILY 04/29/21 Rosuvastatin [Crestor*] 10 mg PO BEDTIME 04/29/21 sulfaSALAzine [AZULFIDINE EN-tabs*] 100 mg PO BID 04/29/21 - Family History Father Family History: Reviewed- Non-Contributory - Social History Alcohol use: No CD- Drugs: No Place of Residence: Home Review of Systems General: Weakness Respiratory: Shortness of Breath Physical Examination Temp Pulse Resp BP Pulse Ox 98.4 F 86 34 H 122/56 L 88 L 04/29/21 08:00 04/29/21 08:00 04/29/21 08:00 04/29/21 08:00 04/29/21 08:00 General: Alert, Oriented x3, Cooperative - Problems (1) Pneumonia due to COVID-19 virus Current Visit: Yes Status: Acute Plan: age 56 AW COVID penumonia and cough.CT scan severe COVIDpenumonia/on Barcitinib and steroids/on 100% Fio2
[2021-04-29] MEDS: ROSUVASTATIN 10 MG TAB PO SCH (21:33)
[2021-04-29] MEDS: SULFASALAZINE 500 MG E.C. TAB PO SCH (21:33)
[2021-04-29] MEDS ORDERED: LORAZEPAM 0.5 MG TABLET PO ONE (21:36)
[2021-04-30] MEDS: IPRATROPIUM BROM 0.5MG/2.5ML NEB SCH ×2 (01:00→08:00)
[2021-04-30 05:56] LABS: Absolute Lymphocytes (CBC) 0.7 K/uL (0.7-4.9); Basophils % 0.4 % (0-1.3); Hematocrit 36.7 % (36.0-45.0); Lymphocytes % 5.6 % (15.3-44.8); MPV 6.7 fL (7.6-11.3); RBC Red Blood Cell Count 3.96 M/uL (3.86-4.86)
[2021-04-30 06:24] LABS: ALT/SGPT 30 U/L (12-78); AST/SGOT 56 U/L (15-37); Albumin 2.7 g/dL (3.4-5.0); Alkaline Phosphatase 88 U/L (45-117); BUN Blood Urea Nitrogen 21 mg/dL (7-18); Bicarbonate 29 mmol/L (21-32); Bilirubin Total 0.8 mg/dL (0.2-1.0); Ferritin 1641.9 ng/mL (8-388); Glucose Level 131 mg/dL (74-106); Magnesium 2.5 mg/dL (1.8-2.4); Potassium 4.4 mmol/L (3.5-5.1); Protein, Total 6.7 g/dL (6.4-8.2); Sodium Level 140 mmol/L (136-145)
--- NOTE | 2021-04-30 06:24 | P.PN ---
Subjective Date of Service: 04/30/21 Chief Complaint: Acute COVID-19 pneumonia Subjective: Other (Patient overall stable. Currently on high flow at 100%.) Physical Examination - Vital Signs Temperature: 97.8 F Blood Pressure: 138/63 Pulse: 91 Respirations: 18 Pulse Ox (%): 92 Assessment & Plan Discharge Plan: LTAC Plan to discharge in: 48 Hours Physician Review Additional Text: COVID: Positive, unvaccinated CT scan chest: COMPARISON: No comparisons FINDINGS: Chest Wall: No suspicious thyroid nodules or pathologic lymphadenopathy. Lungs: Moderate bilateral airspace disease Pleura: No significant effusions or pneumothorax. Mediastinum/hima: No pathologic lymphadenopathy. Pulmonary arteries/Aorta: No filling defect identified. No aortic aneurysm. Heart: No significant pericardial effusion. Normal heart size. Upper abdomen: No acute abnormality. Hepatic steatosis. Bones: No acute abnormality. IMPRESSION: Negative for pulmonary embolism. Moderate bilateral airspace diseas e concerning for multifocal pneumonia, including Covid-19. Initial Chest x-ray: COMPARISON: No comparisons FINDINGS: Moderate patchy bilateral airspace disease per The heart size is within normal limits.No acute osseous abnormality. No significant pleural effusions or pneumothorax. IMPRESSION: Moderate patchy bilateral airspace disease concerning for multifocal pneumonia, including Covid-19. Follow-up chest x-ray 04/30/2021: COMPARISON: Chest Single View dated 04/29/2021; Chest Single View dated 04/27/2021 FINDINGS: Unchanged moderate bilateral airspace disease. The heart size is within normal limits.No acute osseous abnormality. No significant pleural effusions or pneumothorax. IMPRESSION: No significant change in aeration lungs with moderate bilateral airspace disease. Physical exam: General: Alert, In no apparent distress HEENT: Oropharynx moist. Neck: Supple Respiratory: Poor inspiration and expiration. Currently on high flow at 100%. Cardiovascular: Regular rate/rhythm, Normal S1 S2, No murmurs Gastrointestinal: Normal bowel sounds, Soft and benign, Non-distended, No tenderness Musculoskeletal: No clubbing, No swelling, No tenderness Integumentary: No rashes Neurological: Normal gait, Normal speech, Normal strength at 5/5 x4 extr, Normal tone, Sensation intact, Cranial nerves 3-12 intact, Normal affect Lymphatics: No axilla or inguinal lymphadenopathy Impression: Dyspnea secondary to acute respiratory failure with hypoxia secondary to bilateral Covid pneumonia, unvaccinated Hyperlipidemia Rheumatoid arthritis GERD Obesity, BMI 32.8 Plan: Dyspnea secondary to acute respiratory failure with hypoxia secondary to bilateral Covid pneumonia, unvaccinated: Patient remained stable on high flow at 100%. No significant change. CRP and ferritin improved. Patient continues on IV steroids, vitamin supplementation and baricitinib. Continue to monitor liver function tests on baricitinib. Patient on Eliquis for DVT prophylaxis. Continue to wean off oxygen to maintain sats above 93%. Continue incentive spirometer, proning, ambulation. Discussed the possibility of long-term acute care facility placement for the patient due to her slow progress. Patient agreeable. We will pursue long-term acute care facility placement. Await approval. Hyperlipidemia: Continue with Crestor 10 mg daily. Rheumatoid arthritis: Continue with sulfasalazine 1000 mg 1 pill twice daily, gabapentin 300 mg daily and Cymbalta 60 mg daily. Medication for pain provided. GERD: Continue with Pepcid Obesity, BMI 32.8: Continue lifestyle modification education CODE STATUS: Full code DVT prophylaxis: Eliquis [facility] [id number] minutes: Long-term acute care facility placement Time Spent Managing Pts Care (In Minutes): 55
--- NOTE | 2021-04-30 07:10 | RAD REPORT ---
EXAM DESCRIPTION: RAD - Chest Single View - 04/30/2021 5:08 am CLINICAL HISTORY: follow up COVID COMPARISON: Chest Single View dated 04/29/2021; Chest Single View dated 04/27/2021 FINDINGS: Unchanged moderate bilateral airspace disease. The heart size is within normal limits.No a cute osseous abnormality. No significant pleural effusions or pneumothorax. IMPRESSION: No significant change in aeration lungs with moderate bilateral airspace disease.
[2021-04-30] MEDS: ZINC SULFATE 220 MG CAP PO SCH (07:58)
[2021-04-30] MEDS: ASPIRIN EC 81 MG TAB PO SCH (07:58)
[2021-04-30] MEDS: THIAMINE HCL 100 MG TABLET PO SCH ×2 (07:58→20:31)
[2021-04-30] MEDS: ASCORBIC ACID 500 MG TABLET PO SCH ×7 (07:58→20:32)
[2021-04-30] MEDS: VITAMIN D 1000 UNIT TAB PO SCH (07:58)
[2021-04-30] MEDS: METHYLPREDNISOLONE 125 MG INJ IV SCH ×3 (07:59→20:32)
[2021-04-30] MEDS: DULOXETINE 20 MG CAP PO SCH (07:59)
[2021-04-30] MEDS: APIXABAN 5 MG TABLET PO SCH ×2 (07:59→20:31)
[2021-04-30] MEDS: GABAPENTIN 300 MG CAP PO SCH (07:59)
[2021-04-30] MEDS: BARICITINIB 2 MG TABLET PO SCH (08:00)
[2021-04-30] MEDS: SULFASALAZINE 500 MG E.C. TAB PO SCH ×2 (08:01→20:31)
[2021-04-30 09:00] LABS: Blood Morphology Comment NOT SEEN (NOT SEEN); Platelet Estimate ADEQ; White Blood Cell Scan OK (OK)
[2021-04-30] MEDS: FAMOTIDINE 20 MG TAB PO SCH ×2 (10:53→20:31)
[2021-04-30] MEDS: NYSTATIN 500,000 UNIT/5 ML UDC PO SCH ×2 (16:24→20:31)
[2021-04-30] MEDS: ROSUVASTATIN 10 MG TAB PO SCH (20:31)
[2021-05-01 06:11] LABS: Absolute Lymphocytes (CBC) 0.6 K/uL (0.7-4.9); Basophils % 0.2 % (0-1.3); Hematocrit 37.7 % (36.0-45.0); Lymphocytes % 5.1 % (15.3-44.8); MPV 6.4 fL (7.6-11.3); RBC Red Blood Cell Count 4.13 M/uL (3.86-4.86)
--- NOTE | 2021-05-01 06:11 | P.PN ---
Subjective Date of Service: 05/01/21 Chief Complaint: Acute COVID-19 pneumonia Subjective: Other (Patient stable on high flow at 100%. Patient reports some improvement) Physical Examination - Vital Signs Temperature: 97.5 F Blood Pressure: 142/71 Pulse: 82 Respirations: 18 Pulse Ox (%): 93 Assessment & Plan Discharge Plan: LTAC Plan to discharge in: 48 Hours Physician Review Additional Text: COVID: Positive, unvaccinated CT scan chest: COMPARISON: No comparisons FINDINGS: Chest Wall: No suspicious thyroid nodules or pathologic lymphadenopathy. Lungs: Moderate bilateral airspace disease Pleura: No significant effusions or pneumothorax. Mediastinum/hima: No pathologic lymphadenopathy. Pulmonary arteries/Aorta: No filling defect identified. No aortic aneurysm. Heart: No significant pericardial effusion. Normal heart size. Upper abdomen: No acute abnormality. Hepatic steatosis. Bones: No acute abnormality. IMPRESSION: Negative for pulmonary embolism. Moderate bilateral airspace disease concerning for multifocal pneumonia, including Covid-19. Initial Chest x-ray: COMPARISON: No comparisons FINDINGS: Moderate patchy bilateral airspace disease per The heart size is within normal limits.No acute osseous abnormality. No significant pleural effusions or pneumothorax. IMPRESSION: Moderate patchy bilateral airspace disease concerning for mult ifocal pneumonia, including Covid-19. Follow-up chest x-ray 05/01/2021: COMPARISON: Chest Single View dated 04/30/2021; Chest Single View dated 04/29/2021; Chest Single View dated 04/27/2021 FINDINGS: Portable technique limits examination quality. Since 04/30/2021, mild improvement is seen in the right lung aeration and mild worsening in left lung aeration is seen. The heart is normal in size. No displaced fractures. IMPRESSION: Left lung aeration appears mildly worse relative to prior study. Right lung aeration appears mildly improved. Physical exam: General: Alert, In no apparent distress HEENT: Oropharynx moist. Neck: Supple Respiratory: Poor inspiration and expiration. Currently on high flow at 100%. Cardiovascular: Regular rate/rhythm, Normal S1 S2, No murmurs Gastrointestinal: Normal bowel sounds, Soft and benign, Non-distended, No tenderness Musculoskeletal: No clubbing, No swelling, No tenderness Integumentary: No rashes Neurological: Normal gait, Normal speech, Normal strength at 5/5 x4 extr, Normal tone, Sensation intact, Cranial nerves 3-12 intact, Normal affect Lymphatics: No axilla or inguinal lymphadenopathy Impression: Dyspnea secondary to acute respiratory failure with hypoxia secondary to bilateral Covid pneumonia, unvaccinated Hyperlipidemia Rheumatoid arthritis GERD Obesity, BMI 32.8 Plan: Dyspnea secondary to acute respiratory failure with hypoxia secondary to bilateral Covid pneumonia, unvaccinated: Patient remained stable on high flow at 100%. No significant change. CRP and ferritin improved. Will decrease IV steroids. Continue with vitamin supplementation and baricitinib. Continue to monitor liver function tests on baricitinib. Patient on Eliquis for DVT prophylaxis. Continue to wean off oxygen to maintain sats above 93%. Continue incentive spirometer, proning, ambulation. Discussed the possibility of long- term acute care facility placement for the patient due to her slow progress. Patient agreeable. We will pursue long-term acute care facility placement. Await approval. Hyperlipidemia: Continue with Crestor 10 mg daily. Rheumatoid arthritis: Continue with sulfasalazine 1000 mg 1 pill twice daily, gabapentin 300 mg daily and Cymbalta 60 mg daily. Medication for pain provided. GERD: Continue with Pepcid Obesity, BMI 32.8: Continue lifestyle modification education CODE STATUS: Full code DVT prophylaxis: Eliquis [facility] [id number] minutes: Long-term acute care facility placement Time Spent Managing Pts Care (In Minutes): 55
[2021-05-01 07:37] LABS: Albumin 3.1 g/dL (3.4-5.0); Bilirubin Total 1.2 mg/dL (0.2-1.0); Ferritin 1349.6 ng/mL (8-388); Protein, Total 7.3 g/dL (6.4-8.2)
[2021-05-01 07:38] LABS: Magnesium 2.4 mg/dL (1.8-2.4); Potassium 4.1 mmol/L (3.5-5.1)
[2021-05-01] MEDS: THIAMINE HCL 100 MG TABLET PO SCH ×2 (08:55→19:42)
[2021-05-01] MEDS: NYSTATIN 500,000 UNIT/5 ML UDC PO SCH ×3 (08:55→19:43)
[2021-05-01] MEDS: ZINC SULFATE 220 MG CAP PO SCH (08:56)
[2021-05-01] MEDS: APIXABAN 5 MG TABLET PO SCH ×2 (08:56→19:42)
[2021-05-01] MEDS: SULFASALAZINE 500 MG E.C. TAB PO SCH ×2 (08:56→19:43)
[2021-05-01] MEDS: FAMOTIDINE 20 MG TAB PO SCH ×2 (08:57→19:42)
[2021-05-01] MEDS: BARICITINIB 2 MG TABLET PO SCH (08:57)
[2021-05-01] MEDS: ASPIRIN EC 81 MG TAB PO SCH (08:57)
[2021-05-01] MEDS: DULOXETINE 20 MG CAP PO SCH (08:57)
[2021-05-01] MEDS: VITAMIN D 1000 UNIT TAB PO SCH (08:57)
[2021-05-01] MEDS: FOLIC ACID 1 MG TABLET PO SCH (08:57)
[2021-05-01] MEDS: GABAPENTIN 300 MG CAP PO SCH (08:57)
--- NOTE | 2021-05-01 08:57 | RAD REPORT ---
EXAM DESCRIPTION: RAD - Chest Single View - 05/01/2021 4:39 am CLINICAL HISTORY: Follow-up Covid Chest pain. COMPARISON: Chest Single View dated 04/30/2021; Chest Single View dated 04/29/2021; Chest Single View dated 04/27/2021 FINDINGS: Portable technique limits examination quality. Since 04/30/2021, mild improvement is seen in the right lung aeration and mild worsening in left lung aeration is seen. The heart is normal in size. No displaced fractures. IMPRESSION: Left lung aeration appears mildly worse relative to prior study. Right lung aeration ih ears mildly improved.
[2021-05-01] MEDS: ASCORBIC ACID 500 MG TABLET PO SCH ×5 (08:58→19:43)
[2021-05-01] MEDS: METHYLPREDNISOLONE 125 MG INJ IV SCH ×2 (08:59→13:08)
[2021-05-01] MEDS: METHYLPREDNISOLONE 40 MG INJ IV SCH ×2 (13:44→19:42)
[2021-05-01] MEDS ORDERED: METHYLPREDNISOLONE 125 MG INJ IV SCH (14:00)
[2021-05-01] MEDS: ROSUVASTATIN 10 MG TAB PO SCH (19:42)
[2021-05-02 06:05] LABS: Absolute Lymphocytes (CBC) 0.8 K/uL (0.7-4.9); Hematocrit 38.2 % (36.0-45.0); Lymphocytes % 5.4 % (15.3-44.8); MPV 6.5 fL (7.6-11.3); RBC Red Blood Cell Count 4.18 M/uL (3.86-4.86)
--- NOTE | 2021-05-02 06:17 | P.PN ---
Subjective Date of Service: 05/02/21 Chief Complaint: Acute COVID-19 pneumonia Subjective: Other (Stable on HF at 100%) Physical Examination - Vital Signs Temperature: 97 F Blood Pressure: 156/82 Pulse: 80 Respirations: 18 Pulse Ox (%): 92 Assessment & Plan Discharge Plan: LTAC Plan to discharge in: 48 Hours Physician Review Additional Text: COVID: Positive, unvaccinated CT scan chest: COMPARISON: No comparisons FINDINGS: Chest Wall: No suspicious thyroid nodules or pathologic lymphadenopathy. Lungs: Moderate bilateral airspace disease Pleura: No significant effusions or pneumothorax. Mediastinum/hima: No pathologic lymphadenopathy. Pulmonary arteries/Aorta: No filling defect identified. No aortic aneurysm. Heart: No significant pericardial effusion. Normal heart size. Upper abdomen: No acute abnormality. Hepatic steatosis. Bones: No acute abnormality. IMPRESSION: Negative for pulmonary embolism. Moderate bilateral airspace disease concerning for multifocal pneumonia, including Covid-19. Initial Chest x-ray: COMPARISON: No comparisons FINDINGS: Moderate patchy bilateral airspace disease per The heart size is within normal limits.No acute osseous abnormality. No significant pleural effusions or pneumothorax. IMPRESSION: Moderate patchy bilateral airspace disease concerning for multifocal pneumonia, including Covid-19. Follow-up chest x-ray 05/01/2021: COMPARISON: Chest Single View dated 04/30/2021; Chest Single View dated 04/29/2021; Chest Single View dated 04/27/2021 FINDINGS: Portable technique limits examination quality. Since 04/30/2021, mild improvement is seen in the right lung aeration and mild worsening in left lung aeration is seen. The heart is normal in size. No displaced fractures. IMPRESSION: Left lung aeration appears mildly worse relative to prior study. Right lung aeration appears mildly improved. Physical exam: General: Alert, In no apparent distress HEENT: Oropharynx moist. Neck: Supple Respiratory: Poor inspiration and expiration. Currently on high flow at 100%. Cardiovascular: Regular rate/rhythm, Normal S1 S2, No murmurs Gastrointestinal: Normal bowel sounds, Soft and benign, Non-distended, No tenderness Musculoskeletal: No clubbing, No swelling, No tenderness Integumentary: No rashes Neurological: Normal gait, Normal speech, Normal strength at 5/5 x4 extr, Normal tone, Sensation intact, Cranial nerves 3-12 intact, Normal affect Lymphatics: No axilla or inguinal lymphadenopathy Impression: Dyspnea secondary to acute respiratory failure with hypoxia secondary to bilateral Covid pneumonia, unvaccinated Hyperlipidemia Rheumatoid arthritis GERD Obesity, BMI 32.8 Plan: Dyspnea secondary to acute respiratory failure with hypoxia secondary to bilateral Covid pneumonia, unvaccinated: Patient remained stable on high flow at 100%. No significant change. Will add Carafate and IV Diflucan for oral candidiasis. Add Rocephin to cover for opportunistic infection. CRP and ferritin improved. Continue with IV steroids. Continue with vitamin supplementation and baricitinib. Continue to monitor liver function tests on baricitinib. Patient on Eliquis for DVT prophylaxis. Continue to wean off oxygen to maintain sats above 93%. Continue incentive spirometer, proning, ambulation. Discussed the possibility of long-term acute care facility placement for the patient due to her slow progress. Patient agreeable. We will pursue long-term acute care facility placement. Await approval. Hyperlipidemia: Continue with Crestor 10 mg daily. Rheumatoid arthritis: Continue with sulfasalazine 1000 mg 1 pill twice daily, gabapentin 300 mg daily and Cymbalta 60 mg daily. Medication for pain provided. GERD: Continue with Pepcid Oral candidiasis: Continue with Nystatin. Will add carafate and IV Diflucan. Leukocystosis: IV Steroid was decreased yesterday. Add Diflucan and Rocephin to cover for opportunistic infection. Obesity, BMI 32.8: Continue lifestyle modification education CODE STATUS: Full code DVT prophylaxis: Eliquis [facility] [id number] minutes: Long-term acute care facility placement Time Spent Managing Pts Care (In Minutes): 55
[2021-05-02 06:30] LABS: ALT/SGPT 34 U/L (12-78); AST/SGOT 33 U/L (15-37); Albumin 2.8 g/dL (3.4-5.0); Alkaline Phosphatase 92 U/L (45-117); BUN Blood Urea Nitrogen 24 mg/dL (7-18); Bicarbonate 28 mmol/L (21-32); Bilirubin Total 1.1 mg/dL (0.2-1.0); Ferritin 1035.3 ng/mL (8-388); Glucose Level 138 mg/dL (74-106); Magnesium 2.3 mg/dL (1.8-2.4); Potassium 3.9 mmol/L (3.5-5.1); Protein, Total 6.5 g/dL (6.4-8.2); Sodium Level 141 mmol/L (136-145)
[2021-05-02] MEDS: GABAPENTIN 300 MG CAP PO SCH (08:01)
[2021-05-02] MEDS: NYSTATIN 500,000 UNIT/5 ML UDC PO SCH ×3 (08:01→19:41)
[2021-05-02] MEDS: METHYLPREDNISOLONE 40 MG INJ IV SCH ×3 (08:01→19:41)
[2021-05-02] MEDS: ZINC SULFATE 220 MG CAP PO SCH (08:01)
[2021-05-02] MEDS: APIXABAN 5 MG TABLET PO SCH ×2 (08:01→19:41)
[2021-05-02] MEDS: THIAMINE HCL 100 MG TABLET PO SCH ×2 (08:01→19:41)
[2021-05-02] MEDS: VITAMIN D 1000 UNIT TAB PO SCH (08:02)
[2021-05-02] MEDS: DULOXETINE 30 MG CAP PO SCH (08:02)
[2021-05-02] MEDS: FAMOTIDINE 20 MG TAB PO SCH ×2 (08:02→19:41)
[2021-05-02] MEDS: FOLIC ACID 1 MG TABLET PO SCH (08:03)
[2021-05-02] MEDS: ASPIRIN EC 81 MG TAB PO SCH (08:03)
[2021-05-02] MEDS: BARICITINIB 2 MG TABLET PO SCH (08:04)
[2021-05-02] MEDS: SULFASALAZINE 500 MG E.C. TAB PO SCH ×2 (08:04→19:41)
[2021-05-02] MEDS: ASCORBIC ACID 500 MG TABLET PO SCH ×4 (08:05→19:42)
[2021-05-02 09:26] LABS: Blood Morphology Comment NOT SEEN (NOT SEEN); Platelet Estimate ADEQ
[2021-05-02] MEDS ORDERED: FLUCONAZOLE 100mg IVPB 100 MG/50 ML BAG IV SCH (16:00)
[2021-05-02] MEDS: SUCRALFATE 1 GM TABLET PO SCH ×2 (16:09→19:41)
[2021-05-02] MEDS: ROSUVASTATIN 10 MG TAB PO SCH (19:41)
--- NOTE | 2021-05-03 06:18 | P.PN ---
Subjective Date of Service: 05/03/21 Chief Complaint: Acute COVID-19 pneumonia Subjective: Other (Stable) Physical Examination - Vital Signs Temperature: 97.1 F Blood Pressure: 141/77 Pulse: 88 Respirations: 20 Pulse Ox (%): 94 - Studies Microbiology Data (last 24 hrs): 04/27/21 13:52 Blood - Blood Aerobic Blood Culture - Final No growth in 5 days. 04/27/21 13:52 Blood - Blood Anaerobic Blood Culture - Final No growth in 5 days. 04/27/21 13:40 Blood - Blood Aerobic Blood Culture - Final No growth in 5 days. 04/27/21 13:40 Blood - Blood Anaerobic Blood Culture - Final No growth in 5 days. Assessment & Plan Discharge Plan: LTAC Plan to discharge in: 48 Hours Physician Review Additional Text: COVID: Positive, unvaccinated CT scan chest: COMPARISON: No comparisons FINDINGS: Chest Wall: No suspicious thyroid nodules or pathologic lymphadenopathy. Lungs: Moderate bilateral airspace disease Pleura: No significant effusions or pneumothorax. Mediastinum/hima: No pathologic lymphadenopathy. Pulmonary arteries/Aorta: No filling defect identified. No aortic aneurysm. Heart: No significant pericardial effusion. Normal heart size. Upper abdomen: No acute abnormality. Hepatic steatosis. Bones: No acute abnormality. IMPRESSION: Negative for pulmonary embolism. Moderate bilateral airspace disease concerning for multifocal pneumonia, including Covid-19. Initial Chest x-ray: COMPARISON: No comparisons FINDINGS: Moderate patchy bilateral airspace disease per The heart size is within normal limits.No acute osseous abnormality. No significant pleural effusions or pneumothorax. IMPRESSION: Moderate patchy bilateral airspace disease concerning for multifocal pneumonia, including Covid-19. Follow-up chest x-ray 05/01/2021: COMPARISON: Chest Single View dated 04/30/2021; Chest Single View dated 04/29/2021; Chest Single View dated 04/27/2021 FINDINGS: Portable technique limits examination quality. Since 04/30/2021, mild improvement is seen in the right lung aeration and mild worsening in left lung aeration is seen. The heart is normal in size. No displaced fractures. IMPRESSION: Left lung aeration appears mildly worse relative to prior study. Right lung aeration appears mildly improved. Physical exam: General: Alert, In no apparent distress HEENT: Oropharynx moist. Neck: Supple Respiratory: Poor inspiration and expiration. Currently on high flow at 100%. Cardiovascular: Regular rate/rhythm, Normal S1 S2, No murmurs Gastrointestinal: Normal bowel sounds, Soft and benign, Non-distended, No tenderness Musculoskeletal: No clubbing, No swelling, No tenderness Integumentary: No rashes Neurological: Normal gait, Normal speech, Normal strength at 5/5 x4 extr, Normal tone, Sensation intact, Cranial nerves 3-12 intact, Normal affect Lymphatics: No axilla or inguinal lymphadenopathy Impression: Dyspnea secondary to acute respiratory failure with hypoxia secondary to bilat eral Covid pneumonia, unvaccinated Hyperlipidemia Rheumatoid arthritis GERD Obesity, BMI 32.8 Plan: Dyspnea secondary to acute respiratory failure with hypoxia secondary to bilateral Covid pneumonia, unvaccinated: Patient remained stable on high flow at 100%. No significant change. Continue with medication for oral candidiasis. Add Rocephin to cover for opportunistic infection. CRP and ferritin improved. Continue with IV steroids. Continue with vitamin supplementation and baricitinib. Continue to monitor liver function tests on baricitinib. Patient on Eliquis for DVT prophylaxis. Continue to wean off oxygen to maintain sats above 93%. Continue incentive spirometer, proning, ambulation. Discussed the possibility of long-term acute care facility placement for the patient due to her slow progress. Patient agreeable. We will continue to pursue long-term acute care facility placement. Await approval. Hyperlipidemia: Continue with Crestor 10 mg daily. Rheumatoid arthritis: Continue with sulfasalazine 1000 mg 1 pill twice daily, gabapentin 300 mg daily and Cymbalta 60 mg daily. Medication for pain provided. GERD: Continue with Pepcid Oral candidiasis: Continue with Nystatin. Continue with carafate and Diflucan. Leukocystosis: Continue with current meds to cover for opportunistic infection. Obesity, BMI 32.8: Continue lifestyle modification education CODE STATUS: Full code DVT prophylaxis: Eliquis [facility] [id number] minutes: Long-term acute care facility placement Time Spent Managing Pts Care (In Minutes): 55
[2021-05-03 06:28] LABS: Absolute Lymphocytes (CBC) 0.7 K/uL (0.7-4.9); Basophils % 0.6 % (0-1.3); Hematocrit 38.4 % (36.0-45.0); Lymphocytes % 5.3 % (15.3-44.8); MPV 6.3 fL (7.6-11.3); RBC Red Blood Cell Count 4.19 M/uL (3.86-4.86)
[2021-05-03 06:49] LABS: ALT/SGPT 34 U/L (12-78); Albumin 2.8 g/dL (3.4-5.0); Alkaline Phosphatase 93 U/L (45-117); BUN Blood Urea Nitrogen 19 mg/dL (7-18); Bicarbonate 28 mmol/L (21-32); Ferritin 948.1 ng/mL (8-388); Glucose Level 120 mg/dL (74-106); Protein, Total 6.7 g/dL (6.4-8.2); Sodium Level 139 mmol/L (136-145)
[2021-05-03 06:51] LABS: AST/SGOT 30 U/L (15-37); Magnesium 2.3 mg/dL (1.8-2.4); Potassium 3.9 mmol/L (3.5-5.1)
[2021-05-03 07:09] LABS: Blood Morphology Comment NOT SEEN (NOT SEEN); Platelet Estimate INCR; White Blood Cell Scan OK (OK)
--- NOTE | 2021-05-03 07:28 | RAD REPORT ---
EXAM DESCRIPTION: Joshua Single View05/03/2021 7:09 am CLINICAL HISTORY: Shortness breath COMPARISON: May 01 FINDINGS: Mild improvement in the bilateral pulmonary opacities. The heart is normal size IMPRESSION: Mild improvement in the bilateral pulmonary opacities probably pneumonia
[2021-05-03] MEDS: SUCRALFATE 1 GM TABLET PO SCH ×4 (07:30→19:47)
[2021-05-03] MEDS: ASCORBIC ACID 500 MG TABLET PO SCH ×4 (09:00→19:48)
[2021-05-03] MEDS: VITAMIN D 1000 UNIT TAB PO SCH (09:00)
[2021-05-03] MEDS: SULFASALAZINE 500 MG E.C. TAB PO SCH ×2 (11:30→19:47)
[2021-05-03] MEDS: FOLIC ACID 1 MG TABLET PO SCH (11:30)
[2021-05-03] MEDS: ZINC SULFATE 220 MG CAP PO SCH (11:31)
[2021-05-03] MEDS: DULOXETINE 30 MG CAP PO SCH (11:31)
[2021-05-03] MEDS: THIAMINE HCL 100 MG TABLET PO SCH ×2 (11:31→19:47)
[2021-05-03] MEDS: GABAPENTIN 300 MG CAP PO SCH (11:31)
[2021-05-03] MEDS: NYSTATIN 500,000 UNIT/5 ML UDC PO SCH ×3 (11:31→19:47)
[2021-05-03] MEDS: METHYLPREDNISOLONE 40 MG INJ IV SCH ×3 (11:31→19:47)
[2021-05-03] MEDS: FAMOTIDINE 20 MG TAB PO SCH ×2 (11:31→19:47)
[2021-05-03] MEDS: BARICITINIB 2 MG TABLET PO SCH (11:31)
[2021-05-03] MEDS: ASPIRIN EC 81 MG TAB PO SCH (11:35)
[2021-05-03] MEDS: APIXABAN 5 MG TABLET PO SCH ×2 (11:35→19:47)
--- NOTE | 2021-05-03 14:31 | P.PN ---
Subjective Date of Service: 05/03/21 Chief Complaint: Acute COVID-19 pneumonia Resp failure Still requiring high concentration of Fio2 Review of Systems General: Weakness Respiratory: Shortness of Breath Physical Examination - Vital Signs Temperature: 97.9 F Blood Pressure: 135/70 Pulse: 109 Respirations: 29 Pulse Ox (%): 86 - Physical Exam General: Alert, Oriented x3, Cooperative - Studies Microbiology Data (last 24 hrs): 04/27/21 13:52 Blood - Blood Aerobic Blood Culture - Final No growth in 5 days. 04/27/21 13:52 Blood - Blood Anaerobic Blood Culture - Final No growth in 5 days. 04/27/21 13:40 Blood - Blood Aerobic Blood Culture - Final No growth in 5 days. 04/27/21 13:40 Blood - Blood Anaerobic Blood Culture - Final No growth in 5 days. Assessment & Plan - Problems (Diagnosis) (1) Pneumonia due to COVID-19 virus Current Visit: Yes Status: Acute Plan: Resp failure still requing high conc of Fio2/ Change to PoDiflucan/ LAbs reviewed/CXRy mildi improvment
[2021-05-03] MEDS: ROSUVASTATIN 10 MG TAB PO SCH (19:47)
[2021-05-04 05:40] LABS: Absolute Lymphocytes (CBC) 0.5 K/uL (0.7-4.9); Basophils % 0.3 % (0-1.3); Hematocrit 38.2 % (36.0-45.0); Lymphocytes % 4.8 % (15.3-44.8); MPV 6.7 fL (7.6-11.3); RBC Red Blood Cell Count 4.17 M/uL (3.86-4.86)
[2021-05-04 06:02] LABS: ALT/SGPT 34 U/L (12-78); Albumin 2.7 g/dL (3.4-5.0); Alkaline Phosphatase 90 U/L (45-117); BUN Blood Urea Nitrogen 23 mg/dL (7-18); Bicarbonate 28 mmol/L (21-32); Ferritin 948.6 ng/mL (8-388); Glucose Level 132 mg/dL (74-106); Protein, Total 6.8 g/dL (6.4-8.2); Sodium Level 139 mmol/L (136-145)
[2021-05-04 06:03] LABS: AST/SGOT 36 U/L (15-37); Magnesium 2.3 mg/dL (1.8-2.4); Potassium 4.2 mmol/L (3.5-5.1)
--- NOTE | 2021-05-04 06:24 | P.PN ---
Subjective Date of Service: 05/04/21 Chief Complaint: Acute COVID-19 pneumonia Subjective: Other (Patient reports slight improvement. No change noted. Patient remains on high flow 100%) Physical Examination - Vital Signs Temperature: 97.1 F Blood Pressure: 131/62 Pulse: 76 Respirations: 24 Pulse Ox (%): 89 Assessment & Plan Discharge Plan: LTAC Plan to discharge in: 48 Hours Physician Review Additional Text: COVID: Positive, unvaccinated CT scan chest: COMPARISON: No comparisons FINDINGS: Chest Wall: No suspicious thyroid nodules or pathologic lymphadenopathy. Lungs: Moderate bilateral airspace disease Pleura: No significant effusions or pneumothorax. Mediastinum/hima: No pathologic lymphadenopathy. Pulmonary arteries/Aorta: No filling defect identified. No aortic aneurysm. Heart: No significant pericardial effusion. Normal heart size. Upper abdomen: No acute abnormality. Hepatic steatosis. Bones: No acute abnormality. IMPRESSION: Negative for pulmonary embolism. Moderate bilateral airspace disease concerning for multifocal pneumonia, including Covid-19. Initial Chest x-ray: COMPARISON: No comparisons FINDINGS: Moderate patchy bilateral airspace disease per The heart size is within normal limits.No acute osseous abnormality. No significant pleural effusions or pneumothorax. IMPRESSION: Moderate patchy bilateral airspace disease concerning for multifocal pneumonia, including Covid-19. Follow-up chest x-ray 05/03/2021: COMPARISON: May 01 FINDINGS: Mild improvement in the bilateral pulmonary opacities. The heart is normal size IMPRESSION: Mild improvement in the bilateral pulmonary opacities probably pneumonia Physical exam: General: Alert, In no apparent distress HEENT: Oropharynx moist. Neck: Supple Respiratory: Poor inspiration and expiration. Currently on high flow at 100%. Cardiovascular: Regular rate/rhythm, Normal S1 S2, No murmurs Gastrointestinal: Normal bowel sounds, Soft and benign, Non-distended, No tenderness Musculoskeletal: No clubbing, No swelling, No tenderness Integumentary: No rashes Neurological: Normal gait, Normal speech, Normal strength at 5/5 x4 extr, Normal tone, Sensation intact, Cranial nerves 3-12 intact, Normal affect Lymphatics: No axilla or inguinal lymphadenopathy Impression: Dyspnea secondary to acute respiratory failure with hypoxia secondary to bilateral Covid pneumonia, unvaccinated Hyperlipidemia Rheumatoid arthritis GERD Obesity, BMI 32.8 Plan: Dyspnea secondary to acute respiratory failure with hypoxia secondary to bilateral Covid pneumonia, unvaccinated: Patient remained stable on high flow at 100%. No significant change. Continue with medication for oral candidiasis. Continue Rocephin to cover for opportunistic infection. CRP and ferritin improved. Continue with IV steroids. Continue with vitamin supplementation and baricitinib. Continue to monitor liver function tests on baricitinib. Patient on Eliquis for DVT prophylaxis. Continue to wean off oxygen to maintain sats above 93%. Continue incentive spirometer, proning, ambulation. Continue to pursue long-term acute care facility placement. I will turn to service over to the hospitalist team tomorrow. I will go plan of care with him. Hyperlipidemia: Continue with Crestor 10 mg daily. Rheumatoid arthritis: Continue with sulfasalazine 1000 mg 1 pill twice daily, gabapentin 300 mg daily and Cymbalta 60 mg daily. Medication for pain provided. GERD: Continue with Pepcid Oral candidiasis: Continue with Nystatin. Continue with carafate and Diflucan. Leukocystosis: Continue with current meds to cover for opportunistic infection. Obesity, BMI 32.8: Continue lifestyle modification education CODE STATUS: Full code DVT prophylaxis: Eliquis [facility] [id number] minutes: Long-term acute care facility placement Time Spent Managing Pts Care (In Minutes): 55
[2021-05-04] MEDS: GABAPENTIN 300 MG CAP PO SCH (08:21)
[2021-05-04] MEDS: SULFASALAZINE 500 MG E.C. TAB PO SCH ×2 (08:21→20:33)
[2021-05-04] MEDS: SUCRALFATE 1 GM TABLET PO SCH ×4 (08:21→20:34)
[2021-05-04] MEDS: THIAMINE HCL 100 MG TABLET PO SCH ×2 (08:21→20:34)
[2021-05-04] MEDS: FAMOTIDINE 20 MG TAB PO SCH ×2 (08:21→20:34)
[2021-05-04] MEDS: BARICITINIB 2 MG TABLET PO SCH (08:21)
[2021-05-04] MEDS: VITAMIN D 1000 UNIT TAB PO SCH (08:21)
[2021-05-04] MEDS: FLUCONAZOLE 100 MG TAB PO SCH (08:21)
[2021-05-04] MEDS: DULOXETINE 30 MG CAP PO SCH (08:21)
[2021-05-04] MEDS: ASPIRIN EC 81 MG TAB PO SCH ×2 (08:22→12:58)
[2021-05-04] MEDS: FOLIC ACID 1 MG TABLET PO SCH (08:22)
[2021-05-04] MEDS: ASCORBIC ACID 500 MG TABLET PO SCH ×4 (08:22→20:34)
[2021-05-04] MEDS: NYSTATIN 500,000 UNIT/5 ML UDC PO SCH ×3 (08:22→20:33)
[2021-05-04] MEDS: ZINC SULFATE 220 MG CAP PO SCH (08:22)
[2021-05-04] MEDS: APIXABAN 5 MG TABLET PO SCH ×2 (08:22→20:34)
[2021-05-04] MEDS: METHYLPREDNISOLONE 40 MG INJ IV SCH ×3 (08:22→20:34)
[2021-05-04 13:14] LABS: Blood Morphology Comment NOT SEEN (NOT SEEN); Platelet Estimate ADEQ; White Blood Cell Scan OK (OK)
[2021-05-04] MEDS: ROSUVASTATIN 10 MG TAB PO SCH (20:34)
[2021-05-05 05:54] LABS: Absolute Lymphocytes (CBC) 0.4 K/uL (0.7-4.9); Basophils % 0.1 % (0-1.3); Hematocrit 37.5 % (36.0-45.0); MPV 6.9 fL (7.6-11.3); RBC Red Blood Cell Count 4.07 M/uL (3.86-4.86)
--- NOTE | 2021-05-05 07:32 | RAD REPORT ---
EXAM DESCRIPTION: Joshua Single View05/05/2021 6:56 am CLINICAL HISTORY: Shortness of breath COMPARISON: May 03 FINDINGS: No significant change in the bilateral pulmonary opacities. . The heart is normal size IMPRESSION: No significant change in the bilateral pneumonia
[2021-05-05 07:58] LABS: ALT/SGPT 28 U/L (12-78); AST/SGOT 25 U/L (15-37); Albumin 2.7 g/dL (3.4-5.0); Alkaline Phosphatase 90 U/L (45-117); BUN Blood Urea Nitrogen 24 mg/dL (7-18); Bicarbonate 26 mmol/L (21-32); Bilirubin Total 0.9 mg/dL (0.2-1.0); Glucose Level 135 mg/dL (74-106); Magnesium 2.3 mg/dL (1.8-2.4); Potassium 4.4 mmol/L (3.5-5.1); Protein, Total 6.8 g/dL (6.4-8.2); Sodium Level 139 mmol/L (136-145)
[2021-05-05] MEDS: METHYLPREDNISOLONE 40 MG INJ IV SCH ×3 (09:30→23:00)
[2021-05-05] MEDS: NYSTATIN 500,000 UNIT/5 ML UDC PO SCH ×3 (09:30→23:00)
[2021-05-05] MEDS: ASPIRIN EC 81 MG TAB PO SCH (09:30)
[2021-05-05] MEDS: SULFASALAZINE 500 MG E.C. TAB PO SCH ×2 (09:31→23:01)
[2021-05-05] MEDS: VITAMIN D 1000 UNIT TAB PO SCH (09:31)
[2021-05-05] MEDS: THIAMINE HCL 100 MG TABLET PO SCH ×2 (09:31→23:01)
[2021-05-05] MEDS: BARICITINIB 2 MG TABLET PO SCH (09:31)
[2021-05-05] MEDS: FAMOTIDINE 20 MG TAB PO SCH ×2 (09:31→23:00)
[2021-05-05] MEDS: SUCRALFATE 1 GM TABLET PO SCH ×4 (09:32→23:01)
[2021-05-05] MEDS: FOLIC ACID 1 MG TABLET PO SCH (09:32)
[2021-05-05] MEDS: ASCORBIC ACID 500 MG TABLET PO SCH ×4 (09:32→23:00)
[2021-05-05] MEDS: ZINC SULFATE 220 MG CAP PO SCH (09:32)
[2021-05-05] MEDS: APIXABAN 5 MG TABLET PO SCH ×2 (09:32→23:00)
[2021-05-05] MEDS: DULOXETINE 30 MG CAP PO SCH (09:32)
[2021-05-05] MEDS: GABAPENTIN 300 MG CAP PO SCH (09:32)
[2021-05-05] MEDS: FLUCONAZOLE 100 MG TAB PO SCH (09:32)
[2021-05-05] MEDS: ACETAMINOPHEN 500 MG TAB PO PRN (11:23)
[2021-05-05] MEDS: ROSUVASTATIN 10 MG TAB PO SCH (23:01)
[2021-05-05] MEDS: ENSURE HIGH PROTEIN 237 ML CAN PO SCH (23:02)
[2021-05-06 06:00] LABS: Absolute Lymphocytes (CBC) 0.3 K/uL (0.7-4.9); Basophils % 0.2 % (0-1.3); Hematocrit 40.1 % (36.0-45.0); Lymphocytes % 2.2 % (15.3-44.8); RBC Red Blood Cell Count 4.36 M/uL (3.86-4.86)
[2021-05-06 06:41] LABS: ALT/SGPT 26 U/L (12-78); AST/SGOT 24 U/L (15-37); Albumin 2.8 g/dL (3.4-5.0); Alkaline Phosphatase 105 U/L (45-117); BUN Blood Urea Nitrogen 24 mg/dL (7-18); Bicarbonate 28 mmol/L (21-32); Bilirubin Total 0.8 mg/dL (0.2-1.0); Glucose Level 150 mg/dL (74-106); Magnesium 2.3 mg/dL (1.8-2.4); Potassium 4.2 mmol/L (3.5-5.1); Protein, Total 6.9 g/dL (6.4-8.2); Sodium Level 138 mmol/L (136-145)
[2021-05-06] MEDS: ENSURE HIGH PROTEIN 237 ML CAN PO SCH ×2 (09:00→22:45)
[2021-05-06] MEDS: NYSTATIN 500,000 UNIT/5 ML UDC PO SCH ×3 (09:50→22:44)
[2021-05-06] MEDS: THIAMINE HCL 100 MG TABLET PO SCH ×2 (09:51→22:44)
[2021-05-06] MEDS: ASPIRIN EC 81 MG TAB PO SCH (09:51)
[2021-05-06] MEDS: VITAMIN D 1000 UNIT TAB PO SCH (09:51)
[2021-05-06] MEDS: ZINC SULFATE 220 MG CAP PO SCH (09:51)
[2021-05-06] MEDS: SUCRALFATE 1 GM TABLET PO SCH ×4 (09:51→22:44)
[2021-05-06] MEDS: DULOXETINE 30 MG CAP PO SCH (09:51)
[2021-05-06] MEDS: GABAPENTIN 300 MG CAP PO SCH (09:51)
[2021-05-06] MEDS: FLUCONAZOLE 100 MG TAB PO SCH (09:51)
[2021-05-06] MEDS: APIXABAN 5 MG TABLET PO SCH ×2 (09:52→22:44)
[2021-05-06] MEDS: ASCORBIC ACID 500 MG TABLET PO SCH ×4 (09:52→21:00)
[2021-05-06] MEDS: FOLIC ACID 1 MG TABLET PO SCH (09:52)
[2021-05-06] MEDS: SULFASALAZINE 500 MG E.C. TAB PO SCH ×2 (09:52→22:43)
[2021-05-06] MEDS: BARICITINIB 2 MG TABLET PO SCH (09:52)
[2021-05-06] MEDS: METHYLPREDNISOLONE 40 MG INJ IV SCH ×3 (09:52→22:44)
[2021-05-06] MEDS: FAMOTIDINE 20 MG TAB PO SCH ×2 (13:24→22:44)
[2021-05-06] MEDS: ROSUVASTATIN 10 MG TAB PO SCH (22:43)
[2021-05-07] MEDS: ENSURE HIGH PROTEIN 237 ML CAN PO SCH ×2 (09:00→22:31)
--- NOTE | 2021-05-07 09:09 | P.PN ---
Subjective Date of Service: 05/05/21 Patient's symptoms are not really improving. Patient remains on 100% non- rebreather with AIRVO; patient clinical symptoms are not really improved. Review of Systems 10-point ROS is otherwise unremarkable Physical Examination - Vital Signs Temperature: 95.5 F Blood Pressure: 133/69 Pulse: 73 Respirations: 17 Pulse Ox (%): 90 - Physical Exam General: Alert, In no apparent distress, Oriented x3 Respiratory: Clear to auscultation bilaterally, Normal air movement Cardiovascular: Regular rate/rhythm, Normal S1 S2, No murmurs Gastrointestinal: Normal bowel sounds, Soft and benign, Non-distended Musculoskeletal: No clubbing, No swelling Assessment & Plan - Problems (Diagnosis) (1) Pneumonia due to COVID-19 virus Current Visit: Yes Status: Acute - Plan 1. Continue with IV steroids 2. Monitor inflammatory markers 3. Repeat chest x-ray if symptoms are significantly worsening 4. O2 per protocol 5. Advance if symptoms worsens 6. Continue with albuterol inhaler therapy; also supportive care 7. GI and DVT prophylaxis Discharge Plan: Home Plan to discharge in: Greater than 2 days - Advance Directives Does patient have a Living Will: No Does patient have a Durable POA for Healthcare: No - Code Status/Comfort Care Code Status: Full Code Critical Care: No Time Spent Managing PTS Care (In Minutes): 35
[2021-05-07] MEDS: ASPIRIN EC 81 MG TAB PO SCH (10:05)
[2021-05-07] MEDS: SUCRALFATE 1 GM TABLET PO SCH ×4 (10:05→22:31)
[2021-05-07] MEDS: FLUCONAZOLE 100 MG TAB PO SCH (10:06)
[2021-05-07] MEDS: SULFASALAZINE 500 MG E.C. TAB PO SCH ×2 (10:06→22:30)
[2021-05-07] MEDS: DULOXETINE 30 MG CAP PO SCH (10:06)
[2021-05-07] MEDS: APIXABAN 5 MG TABLET PO SCH ×2 (10:07→22:31)
[2021-05-07] MEDS: FOLIC ACID 1 MG TABLET PO SCH (10:07)
[2021-05-07] MEDS: NYSTATIN 500,000 UNIT/5 ML UDC PO SCH ×3 (10:07→22:30)
[2021-05-07] MEDS: GABAPENTIN 300 MG CAP PO SCH (10:08)
[2021-05-07] MEDS: FAMOTIDINE 20 MG TAB PO SCH ×2 (10:09→22:31)
[2021-05-07] MEDS: BARICITINIB 2 MG TABLET PO SCH (10:09)
[2021-05-07] MEDS: METHYLPREDNISOLONE 40 MG INJ IV SCH ×2 (10:10→13:06)
[2021-05-07] MEDS: THIAMINE HCL 100 MG TABLET PO SCH ×3 (10:10→22:31)
[2021-05-07] MEDS: ASCORBIC ACID 500 MG TABLET PO SCH ×4 (10:10→22:30)
[2021-05-07] MEDS: VITAMIN D 1000 UNIT TAB PO SCH (10:10)
[2021-05-07] MEDS: ZINC SULFATE 220 MG CAP PO SCH (10:11)
--- NOTE | 2021-05-07 10:11 | P.PN ---
Date of Service: 05/06/21 Subjective Patient really not get any better. Respiratory status continues to worsen slightly. Review of Systems 10-point ROS is otherwise unremarkable Physical Examination - Vital Signs reviewed - Physical Exam General: Alert, In no apparent distress, Oriented x3 Respiratory: Clear to auscultation bilaterally, Normal air movement Cardiovascular: Regular rate/rhythm, Normal S1 S2, No murmurs Gastrointestinal: Normal bowel sounds, Soft and benign, Non-distended Musculoskeletal: No clubbing, No swelling Assessment & Plan - Problems (Diagnosis) (1) Pneumonia due to COVID-19 virus Current Visit: Yes Status: Acute - Plan Continue with POC as mentioned 1. Continue with IV steroids 2. Monitor inflammatory markers 3. Repeat chest x-ray if symptoms are significantly worsening 4. O2 per protocol; patient is on non-rebreather with high-flow oxygen 5. Advance if symptoms worsens 6. Continue with albuterol inhaler therapy; also supportive care 7. GI and DVT prophylaxis
--- NOTE | 2021-05-07 10:12 | P.PN ---
Date of Service: 05/07/21 Subjective Patient remains severely hypoxic. Not really improving significantly. Spoke to the who is in the room next to her and probably going home and he states he will go talk to her before discharge. She really is not compliant with prone positioning. She is not really lying on her side. Review of Systems 10-point ROS is otherwise unremarkable Physical Examination - Vital Signs reviewed - Physical Exam General: Alert, In no apparent distress, Oriented x3 Respiratory: Diminished air movement Cardiovascular: Regular rate/rhythm, Normal S1 S2, No murmurs Gastrointestinal: Normal bowel sounds, Soft and benign, Non-distended Musculoskeletal: No clubbing, No swelling Assessment & Plan - Problems (Diagnosis) (1) Pneumonia due to COVID-19 virus Current Visit: Yes Status: Acute - Plan Continue with POC as mentioned 1. Continue with IV steroids; may need to increase dosage 2. Monitor inflammatory markers 3. X-ray was worsening infiltrate 4. Continue with BiPAP support 5. Echocardiogram 6. Continue with albuterol inhaler therapy; also supportive care 7. GI and DVT prophylaxis
[2021-05-07] MEDS: ROSUVASTATIN 10 MG TAB PO SCH (22:30)
[2021-05-08 04:19] LABS: Absolute Lymphocytes (CBC) 0.4 K/uL (0.7-4.9); Basophils % 0.3 % (0-1.3); Hematocrit 41.6 % (36.0-45.0); Lymphocytes % 2.8 % (15.3-44.8); MPV 7.2 fL (7.6-11.3); RBC Red Blood Cell Count 4.57 M/uL (3.86-4.86)
[2021-05-08 04:55] LABS: Basophilic Stippling 1+; Blood Morphology Comment NOTED (NOT SEEN); Platelet Estimate ADEQ
[2021-05-08 05:00] LABS: BUN Blood Urea Nitrogen 26 mg/dL (7-18); Bicarbonate 31 mmol/L (21-32); Ferritin 777.3 ng/mL (8-388); Glucose Level 119 mg/dL (74-106); Magnesium 2.3 mg/dL (1.8-2.4); NT PRO-BNP 114 pg/mL (<125); Sodium Level 139 mmol/L (136-145)
[2021-05-08] MEDS: ENSURE HIGH PROTEIN 237 ML CAN PO SCH ×2 (09:00→20:42)
[2021-05-08] MEDS: BARICITINIB 2 MG TABLET PO SCH (09:10)
[2021-05-08] MEDS: VITAMIN D 1000 UNIT TAB PO SCH (09:10)
[2021-05-08] MEDS: GABAPENTIN 300 MG CAP PO SCH (09:10)
[2021-05-08] MEDS: ZINC SULFATE 220 MG CAP PO SCH (09:10)
[2021-05-08] MEDS: NYSTATIN 500,000 UNIT/5 ML UDC PO SCH ×4 (09:10→20:42)
[2021-05-08] MEDS: FOLIC ACID 1 MG TABLET PO SCH (09:10)
[2021-05-08] MEDS: SUCRALFATE 1 GM TABLET PO SCH ×4 (09:10→20:41)
[2021-05-08] MEDS: ASPIRIN EC 81 MG TAB PO SCH (09:10)
[2021-05-08] MEDS: FAMOTIDINE 20 MG TAB PO SCH ×2 (09:10→20:41)
[2021-05-08] MEDS: ASCORBIC ACID 500 MG TABLET PO SCH ×4 (09:11→20:42)
[2021-05-08] MEDS: APIXABAN 5 MG TABLET PO SCH ×2 (09:11→20:42)
[2021-05-08] MEDS: FLUCONAZOLE 100 MG TAB PO SCH (09:11)
[2021-05-08] MEDS: SULFASALAZINE 500 MG E.C. TAB PO SCH ×2 (09:11→20:41)
[2021-05-08] MEDS: DULOXETINE 30 MG CAP PO SCH (09:11)
[2021-05-08] MEDS: THIAMINE HCL 100 MG TABLET PO SCH ×2 (09:12→20:41)
[2021-05-08] MEDS ORDERED: METHYLPREDNISOLONE 125 MG INJ IV ONE (10:25)
--- NOTE | 2021-05-08 12:20 | RAD REPORT ---
EXAM DESCRIPTION: Joshua Single View05/08/2021 12:04 pm CLINICAL HISTORY: Shortness of breath COMPARISON: May 05, 2021 FINDINGS: No significant change in extensive bilateral pulmonary opacities. Heart is normal size. Subtle lucency surrounds mediastinum and heart IMPRESSION: No significant change extensive bilateral pulmonary opacities probably pneumonia Subtle lucency surrounds mediastinum and heart equivocal for mild pneumomediastinum
[2021-05-08] MEDS: METHYLPREDNISOLONE 125 MG INJ IV SCH (16:14)
[2021-05-08] MEDS: ROSUVASTATIN 10 MG TAB PO SCH (20:41)
[2021-05-08] MEDS: ACETAMINOPHEN 500 MG TAB PO PRN (20:51)
[2021-05-09] MEDS: METHYLPREDNISOLONE 125 MG INJ IV SCH ×3 (01:25→16:41)
[2021-05-09 03:58] LABS: Absolute Lymphocytes (CBC) 0.2 K/uL (0.7-4.9); Basophils % 0.6 % (0-1.3); Hematocrit 40.7 % (36.0-45.0); Lymphocytes % 2.4 % (15.3-44.8); MPV 7.1 fL (7.6-11.3); RBC Red Blood Cell Count 4.42 M/uL (3.86-4.86)
[2021-05-09 04:17] LABS: BUN Blood Urea Nitrogen 29 mg/dL (7-18); Bicarbonate 32 mmol/L (21-32); Ferritin 862.3 ng/mL (8-388); Glucose Level 155 mg/dL (74-106); Magnesium 2.4 mg/dL (1.8-2.4); Potassium 4.4 mmol/L (3.5-5.1); Sodium Level 139 mmol/L (136-145)
[2021-05-09] MEDS: ASPIRIN EC 81 MG TAB PO SCH (09:00)
--- NOTE | 2021-05-09 09:14 | P.PN ---
Date of Service: 05/08/21 Subjective Patient continues to do poorly. Will increase steroid dosing today. Repeat chest x-ray pending. Clinical condition has worsened and I spoke to the as well. She remains a full code at this time. We got acceptance to [facility] but patient is not stable for transfer. Review of Systems 10-point ROS is otherwise unremarkable Physical Examination - Vital Signs reviewed - Physical Exam General: Alert, In no apparent distress, Oriented x3 Respiratory: Diminished air movement Cardiovascular: Regular rate/rhythm, Normal S1 S2, No murmurs Gastrointestinal: Normal bowel sounds, Soft and benign, Non-distended Musculoskeletal: No clubbing, No swelling Skin: no crepitus in chest noted Assessment & Plan - Problems (Diagnosis) (1) Pneumonia due to COVID-19 virus Current Visit: Yes Status: Acute (1) Pneumomediastinum Current Visit: Yes Status: Acute - Plan Continue with POC as mentioned 1. Continue with IV steroids; may need to increase dosage 2. Monitor inflammatory markers 3. X-ray with concern for pneumomediastinum 4. Continue with BiPAP support; decrease pressures 5. Echocardiogram pending 6. Continue with albuterol inhaler therapy; also supportive care 7. GI and DVT prophylaxis
[2021-05-09] MEDS: NYSTATIN 500,000 UNIT/5 ML UDC PO SCH ×3 (10:01→21:13)
[2021-05-09] MEDS: ASCORBIC ACID 500 MG TABLET PO SCH ×4 (10:02→21:13)
[2021-05-09] MEDS: GABAPENTIN 300 MG CAP PO SCH (10:02)
[2021-05-09] MEDS: SUCRALFATE 1 GM TABLET PO SCH ×4 (10:02→21:13)
[2021-05-09] MEDS: FLUCONAZOLE 100 MG TAB PO SCH (10:02)
[2021-05-09] MEDS: VITAMIN D 1000 UNIT TAB PO SCH (10:02)
[2021-05-09] MEDS: FAMOTIDINE 20 MG TAB PO SCH ×2 (10:03→21:13)
[2021-05-09] MEDS: FOLIC ACID 1 MG TABLET PO SCH (10:03)
[2021-05-09] MEDS: SULFASALAZINE 500 MG E.C. TAB PO SCH ×2 (10:03→21:12)
[2021-05-09] MEDS: DULOXETINE 30 MG CAP PO SCH (10:03)
[2021-05-09] MEDS: APIXABAN 5 MG TABLET PO SCH ×2 (10:03→21:12)
[2021-05-09] MEDS: ZINC SULFATE 220 MG CAP PO SCH (10:03)
[2021-05-09] MEDS: THIAMINE HCL 100 MG TABLET PO SCH ×2 (10:03→21:13)
[2021-05-09] MEDS: BARICITINIB 2 MG TABLET PO SCH (10:04)
[2021-05-09] MEDS: ENSURE HIGH PROTEIN 237 ML CAN PO SCH ×2 (10:05→21:00)
[2021-05-09] MEDS: ROSUVASTATIN 10 MG TAB PO SCH (21:12)
[2021-05-10] MEDS: METHYLPREDNISOLONE 125 MG INJ IV SCH ×3 (00:33→17:19)
[2021-05-10 06:13] LABS: Absolute Lymphocytes (CBC) 0.3 K/uL (0.7-4.9); Hematocrit 39.1 % (36.0-45.0); MPV 7.1 fL (7.6-11.3); RBC Red Blood Cell Count 4.27 M/uL (3.86-4.86)
[2021-05-10 06:25] LABS: BUN Blood Urea Nitrogen 33 mg/dL (7-18); Bicarbonate 31 mmol/L (21-32); Ferritin 821.8 ng/mL (8-388); Glucose Level 190 mg/dL (74-106); Magnesium 2.4 mg/dL (1.8-2.4); Potassium 3.9 mmol/L (3.5-5.1); Sodium Level 140 mmol/L (136-145)
[2021-05-10] MEDS: VITAMIN D 1000 UNIT TAB PO SCH (09:04)
[2021-05-10] MEDS: ASPIRIN EC 81 MG TAB PO SCH (09:05)
[2021-05-10] MEDS: DULOXETINE 30 MG CAP PO SCH (09:06)
[2021-05-10] MEDS: FOLIC ACID 1 MG TABLET PO SCH (09:07)
[2021-05-10] MEDS: GABAPENTIN 300 MG CAP PO SCH (09:07)
[2021-05-10] MEDS: ZINC SULFATE 220 MG CAP PO SCH (09:07)
[2021-05-10] MEDS: FAMOTIDINE 20 MG TAB PO SCH ×2 (09:07→21:07)
[2021-05-10] MEDS: APIXABAN 5 MG TABLET PO SCH ×2 (09:07→21:07)
[2021-05-10] MEDS: FLUCONAZOLE 100 MG TAB PO SCH (09:07)
[2021-05-10] MEDS: NYSTATIN 500,000 UNIT/5 ML UDC PO SCH ×3 (09:08→21:08)
[2021-05-10] MEDS: ASCORBIC ACID 500 MG TABLET PO SCH ×4 (09:08→21:07)
[2021-05-10] MEDS: SUCRALFATE 1 GM TABLET PO SCH ×4 (09:08→21:07)
[2021-05-10] MEDS: THIAMINE HCL 100 MG TABLET PO SCH ×2 (09:08→21:12)
[2021-05-10] MEDS: BARICITINIB 2 MG TABLET PO SCH (09:09)
[2021-05-10] MEDS: ENSURE HIGH PROTEIN 237 ML CAN PO SCH ×2 (09:11→21:08)
[2021-05-10] MEDS: SULFASALAZINE 500 MG E.C. TAB PO SCH ×2 (09:11→21:07)
--- NOTE | 2021-05-10 09:24 | P.PN ---
Date of Service: 05/09/21 Subjective no significant changes from yesterday. Patient remains a little tachypneic. Still remains hypoxic. Inflammatory markers actually having actually increased. Will increase steroid dosing. Review of Systems 10-point ROS is otherwise unremarkable Physical Examination - Vital Signs reviewed - Physical Exam General: Alert, In no apparent distress, Oriented x3 Respiratory: Clear to auscultation bilaterally, Normal air movement Cardiovascular: Regular rate/rhythm, Normal S1 S2, No murmurs Gastrointestinal: Normal bowel sounds, Soft and benign, Non-distended Musculoskeletal: No clubbing, No swelling Assessment & Plan - Problems (Diagnosis) (1) Pneumonia due to COVID-19 virus Current Visit: Yes Status: Acute - Plan Continue with POC as mentioned 1. Continue with IV steroids; since inflammatory markers increased will increase steroids 2. Monitor inflammatory markers 3. Repeat chest x-ray if symptoms are significantly worsening 4. O2 per protocol; patient is on non-rebreather with high-flow oxygen 5. Advanced if symptoms worsens 6. Continue with albuterol inhaler therapy; also supportive care 7. GI and DVT prophylaxis
--- NOTE | 2021-05-10 09:26 | P.PN ---
Date of Service: 05/10/21 Subjective Patient appears to still be quite short of breath. Her clinical symptoms are not really changing much. Continue with plan of care as mentioned below. Review of Systems 10-point ROS is otherwise unremarkable Physical Examination - Vital Signs reviewed - Physical Exam General: Alert, In no apparent distress, Oriented x3 Respiratory: Clear to auscultation bilaterally, Normal air movement Cardiovascular: Regular rate/rhythm, Normal S1 S2, No murmurs Gastrointestinal: Normal bowel sounds, Soft and benign, Non-distended Musculoskeletal: No clubbing, No swelling Assessment & Plan - Problems (Diagnosis) (1) Pneumonia due to COVID-19 virus Current Visit: Yes Status: Acute - Plan Continue with POC as mentioned 1. Continue with IV steroids; steroid dose is increased 2. Monitoring inflammatory markers 3. Repeat chest x-ray if symptoms are significantly worsening 4. O2 per protocol; patient is on non-rebreather with high-flow oxygen 5. Will speak with regarding her current status 6. Continue with albuterol inhaler therapy; also supportive care 7. GI and DVT prophylaxis
[2021-05-10] MEDS: LORazepam 2 MG/ML VIAL IV PRN ×2 (13:58→22:10)
[2021-05-10] MEDS: ROSUVASTATIN 10 MG TAB PO SCH (21:08)
[2021-05-11] MEDS: METHYLPREDNISOLONE 125 MG INJ IV SCH ×3 (00:15→17:12)
[2021-05-11 06:21] LABS: ALT/SGPT 23 U/L (12-78); AST/SGOT 15 U/L (15-37); Albumin 2.6 g/dL (3.4-5.0); Alkaline Phosphatase 117 U/L (45-117); BUN Blood Urea Nitrogen 31 mg/dL (7-18); Bicarbonate 33 mmol/L (21-32); Bilirubin Total 0.7 mg/dL (0.2-1.0); C-Reactive Protein 8.23 mg/L (<3.00); Ferritin 868.7 ng/mL (8-388); Glucose Level 177 mg/dL (74-106); Magnesium 2.3 mg/dL (1.8-2.4); Phosphorus 3.9 mg/dL (2.5-4.9); Potassium 4.1 mmol/L (3.5-5.1); Sodium Level 140 mmol/L (136-145)
[2021-05-11 06:25] LABS: Absolute Lymphocytes (CBC) 0.2 K/uL (0.7-4.9); Basophils % 0.2 % (0-1.3); Hematocrit 38.7 % (36.0-45.0); Lymphocytes % 2.1 % (15.3-44.8); MPV 7.1 fL (7.6-11.3)
[2021-05-11] MEDS: BARICITINIB 2 MG TABLET PO SCH (07:39)
[2021-05-11] MEDS: SULFASALAZINE 500 MG E.C. TAB PO SCH ×2 (07:39→20:38)
[2021-05-11] MEDS: NYSTATIN 500,000 UNIT/5 ML UDC PO SCH ×3 (07:40→20:37)
[2021-05-11] MEDS: ASPIRIN EC 81 MG TAB PO SCH (07:40)
--- NOTE | 2021-05-11 07:41 | RAD REPORT ---
EXAM DESCRIPTION: RAD - Chest Single View - 05/11/2021 4:56 am CLINICAL HISTORY: pneumonia COMPARISON: Chest Single View dated 05/08/2021; Chest Single View dated 05/05/2021; Chest Single View dated 05/03/2021; Chest Single View dated 05/01/2021 FINDINGS: Grossly similar moderate widespread bilateral airspace disease. The heart size is within n ormal limits.No acute osseous abnormality. No significant pleural effusions or pneumothorax. IMPRESSION: Similar widespread bilateral airspace disease concerning for pneumonia.
[2021-05-11] MEDS: SUCRALFATE 1 GM TABLET PO SCH ×4 (07:42→20:37)
[2021-05-11] MEDS: ZINC SULFATE 220 MG CAP PO SCH (07:42)
[2021-05-11] MEDS: APIXABAN 5 MG TABLET PO SCH ×2 (07:42→20:37)
[2021-05-11] MEDS: DULOXETINE 30 MG CAP PO SCH (07:42)
[2021-05-11] MEDS: FOLIC ACID 1 MG TABLET PO SCH (07:43)
[2021-05-11] MEDS: VITAMIN D 1000 UNIT TAB PO SCH (07:43)
[2021-05-11] MEDS: ASCORBIC ACID 500 MG TABLET PO SCH ×4 (07:43→20:38)
[2021-05-11] MEDS: THIAMINE HCL 100 MG TABLET PO SCH ×2 (07:43→20:38)
[2021-05-11] MEDS: FAMOTIDINE 20 MG TAB PO SCH ×2 (07:43→20:38)
[2021-05-11] MEDS: GABAPENTIN 300 MG CAP PO SCH (07:43)
[2021-05-11] MEDS: ENSURE HIGH PROTEIN 237 ML CAN PO SCH ×2 (07:44→20:38)
[2021-05-11] MEDS: FLUCONAZOLE 100 MG TAB PO SCH (07:46)
--- NOTE | 2021-05-11 16:26 | P.PN ---
Subjective Date of Service: 05/11/21 Chief Complaint: Respiratory failure Not doing well still requiring high concentrations of oxygen Review of Systems General: Weakness Respiratory: Shortness of Breath Physical Examination - Vital Signs Temperature: 96.4 F Blood Pressure: 129/77 Pulse: 93 Respirations: 29 Pulse Ox (%): 87 - Physical Exam General: Alert, Oriented x3, Cooperative - Studies Medications List Reviewed: Yes Assessment & Plan - Problems (Diagnosis) (1) Pneumonia due to COVID-19 virus Current Visit: Yes Status: Acute Plan: Respiratory failure requiring high concentrations of oxygen patient has diffuse widespread disease will not qualify for Barcitinib Physician Review: Patient Assessed, Agree with Above Assessment and Plan
[2021-05-11] MEDS: ROSUVASTATIN 10 MG TAB PO SCH (20:38)
[2021-05-12] MEDS: METHYLPREDNISOLONE 125 MG INJ IV SCH ×3 (00:38→16:13)
[2021-05-12 07:57] LABS: Absolute Lymphocytes (CBC) 0.2 K/uL (0.7-4.9); Basophils % 0.3 % (0-1.3); Hematocrit 38.9 % (36.0-45.0); Lymphocytes % 1.7 % (15.3-44.8); MPV 7.1 fL (7.6-11.3); RBC Red Blood Cell Count 4.25 M/uL (3.86-4.86)
[2021-05-12 08:13] LABS: ALT/SGPT 29 U/L (12-78); AST/SGOT 24 U/L (15-37); Albumin 2.6 g/dL (3.4-5.0); Alkaline Phosphatase 114 U/L (45-117); BUN Blood Urea Nitrogen 30 mg/dL (7-18); Bicarbonate 33 mmol/L (21-32); Bilirubin Total 0.6 mg/dL (0.2-1.0); C-Reactive Protein 3.88 mg/L (<3.00); Ferritin 866.9 ng/mL (8-388); Glucose Level 187 mg/dL (74-106); Magnesium 2.3 mg/dL (1.8-2.4); Phosphorus 3.5 mg/dL (2.5-4.9); Potassium 4.2 mmol/L (3.5-5.1); Protein, Total 5.8 g/dL (6.4-8.2); Sodium Level 140 mmol/L (136-145)
[2021-05-12] MEDS: ZINC SULFATE 220 MG CAP PO SCH (08:20)
[2021-05-12] MEDS: VITAMIN D 1000 UNIT TAB PO SCH (08:20)
[2021-05-12] MEDS: SUCRALFATE 1 GM TABLET PO SCH ×4 (08:20→21:00)
[2021-05-12] MEDS: FOLIC ACID 1 MG TABLET PO SCH (08:21)
[2021-05-12] MEDS: APIXABAN 5 MG TABLET PO SCH ×2 (08:21→21:00)
[2021-05-12] MEDS: ASCORBIC ACID 500 MG TABLET PO SCH ×4 (08:21→21:00)
[2021-05-12] MEDS: FLUCONAZOLE 100 MG TAB PO SCH (08:21)
[2021-05-12] MEDS: GABAPENTIN 300 MG CAP PO SCH (08:21)
[2021-05-12] MEDS: SULFASALAZINE 500 MG E.C. TAB PO SCH ×2 (08:21→21:00)
[2021-05-12] MEDS: ASPIRIN EC 81 MG TAB PO SCH (08:21)
[2021-05-12] MEDS: THIAMINE HCL 100 MG TABLET PO SCH ×2 (08:21→21:00)
[2021-05-12] MEDS: ENSURE HIGH PROTEIN 237 ML CAN PO SCH ×2 (08:35→21:00)
[2021-05-12] MEDS: DULOXETINE 30 MG CAP PO SCH (08:35)
[2021-05-12] MEDS: FAMOTIDINE 20 MG TAB PO SCH ×2 (08:36→21:00)
[2021-05-12 10:19] LABS: Blood Morphology Comment NOT SEEN (NOT SEEN); Platelet Estimate ADEQ; White Blood Cell Scan OK (OK)
--- NOTE | 2021-05-12 17:08 | P.PN ---
Date of Service: 05/11/21 Subjective Pt with no significant changes; still hypoxic Review of Systems 10-point ROS is otherwise unremarkable Physical Examination - Vital Signs reviewed - Physical Exam General: Alert, In no apparent distress, Oriented x3 Respiratory: Clear to auscultation bilaterally, Normal air movement Cardiovascular: Regular rate/rhythm, Normal S1 S2, No murmurs Gastrointestinal: Normal bowel sounds, Soft and benign, Non-distended Musculoskeletal: No clubbing, No swelling Assessment & Plan - Problems (Diagnosis) (1) Pneumonia due to COVID-19 virus Current Visit: Yes Status: Acute - Plan Continue with POC as mentioned 1. Continue with IV steroids; continue with increased steroids 2. Continue with monitoring inflammatory markers 3. Repeat chest x-ray in 48hrs 4. O2 per protocol; patient is on non-rebreather with high-flow oxygen 5. Advanced if symptoms worsens 6. Continue with albuterol inhaler therapy; also supportive care 7. GI and DVT prophylaxis
--- NOTE | 2021-05-12 17:17 | P.PN ---
Date of Service: 05/12/21 Subjective Pt looks to be doing much better today. She is more awake and alert. She is interacting more appropriately. I spoke to Respiratory therapy and they tell me she was much more positive and much more interactive. She states she feels so much better. Review of Systems 10-point ROS is otherwise unremarkable Physical Examination - Vital Signs reviewed - Physical Exam General: Alert, In no apparent distress, Oriented x3 Respiratory: Clear to auscultation bilaterally, Normal air movement Cardiovascular: Regular rate/rhythm, Normal S1 S2, No murmurs Gastrointestinal: Normal bowel sounds, Soft and benign, Non-distended Musculoskeletal: No clubbing, No swelling Assessment & Plan - Problems (Diagnosis) (1) Pneumonia due to COVID-19 virus Current Visit: Yes Status: Acute - Plan Continue with POC as mentioned 1. Continue with IV steroids; continue with increased steroids dosing for 24 more hrs and repeat inflammatory markers in the morning. If these are improved then we will go ahead and cut back down on the steroids a little bit. 2. Repeat chest x-ray in 48hrs 3. Recommend neb treatments 4. O2 per protocol; patient is on non-rebreather with high-flow oxygen 5. Advanced if symptoms worsens 6. GI and DVT prophylaxis
[2021-05-12] MEDS: ROSUVASTATIN 10 MG TAB PO SCH (21:00)
[2021-05-12 21:14] LABS: Arterial Blood Carboxyhemoglob 1.1 % (0-1.5); Blood Gas Oxyhemoglobin 76.1 % (94-97); Blood O2 Saturation 77.9 % (92-98.5)
--- NOTE | 2021-05-12 22:08 | RAD REPORT ---
EXAM DESCRIPTION: RAD - Chest Single View - 05/12/2021 9:32 pm CLINICAL HISTORY: hypoxia, covid pneumonia Chest pain. COMPARISON: Chest Single View dated 05/11/2021; Chest Single View dated 05/08/2021; Chest Single View dated 05/05/2021; Chest Single View dated 05/03/2021 FINDINGS: Portable technique limits examination quality. Extensive bilateral pulmonary opacities are again noted appearing unchanged since yesterday's study. The heart is upper limit normal in size. No displaced fractures. IMPRESSION: Stable chest since yesterday's examination.
[2021-05-12] MEDS ORDERED: LORazepam 2 MG/ML VIAL IV PRN (22:39)
[2021-05-12 23:05] VITALS: BMI 36.1
[2021-05-12] MEDS ORDERED: ALBUTEROL 2.5 MG/3 ML NEB SOL NEB ONE (23:11)
[2021-05-12] MEDS ORDERED: ALBUTEROL 2.5 MG/3 ML NEB SOL NEB PRN (23:15)
[2021-05-12] MEDS ORDERED: IPRATROPIUM BROM 0.5MG/2.5ML NEB PRN (23:38)
[2021-05-13] MEDS: METHYLPREDNISOLONE 125 MG INJ IV SCH ×3 (01:04→20:39)
[2021-05-13 05:36] LABS: Absolute Lymphocytes (CBC) 0.1 K/uL (0.7-4.9); Basophils % 0.5 % (0-1.3); Hematocrit 39.1 % (36.0-45.0); Lymphocytes % 0.7 % (15.3-44.8); MPV 7.2 fL (7.6-11.3)
[2021-05-13 05:48] LABS: ALT/SGPT 36 U/L (12-78); AST/SGOT 22 U/L (15-37); Albumin 2.7 g/dL (3.4-5.0); Alkaline Phosphatase 106 U/L (45-117); BUN Blood Urea Nitrogen 26 mg/dL (7-18); Bicarbonate 34 mmol/L (21-32); Bilirubin Total 0.6 mg/dL (0.2-1.0); C-Reactive Protein 2.96 mg/L (<3.00); Glucose Level 193 mg/dL (74-106); Magnesium 2.3 mg/dL (1.8-2.4); Protein, Total 5.9 g/dL (6.4-8.2); Sodium Level 141 mmol/L (136-145)
[2021-05-13] MEDS: SUCRALFATE 1 GM TABLET PO SCH ×4 (07:30→19:16)
--- NOTE | 2021-05-13 08:48 | RAD REPORT ---
EXAM DESCRIPTION: Joshua Single View05/13/2021 6:55 am CLINICAL HISTORY: Shortness breath COMPARISON: May 12, 2001 FINDINGS: No significant change bilateral pulmonary opacities. Subtle lucency adjacent to heart aand mediastinum The heart is normal size IMPRESSION: No significant change diffuse bilateral pulmonary opacities likely pneumonia Subtle lucency adjacent to heart and mediastinum is equivocal for mild pneumomediastinum and can be m onitored on a subsequent exam
[2021-05-13] MEDS: GABAPENTIN 300 MG CAP PO SCH (09:00)
[2021-05-13] MEDS: THIAMINE HCL 100 MG TABLET PO SCH ×2 (09:00→19:14)
[2021-05-13] MEDS: DULOXETINE 30 MG CAP PO SCH (09:00)
[2021-05-13] MEDS: ASPIRIN EC 81 MG TAB PO SCH (09:00)
[2021-05-13] MEDS: ENSURE HIGH PROTEIN 237 ML CAN PO SCH ×2 (09:00→19:13)
[2021-05-13] MEDS: FOLIC ACID 1 MG TABLET PO SCH (09:00)
[2021-05-13] MEDS: ZINC SULFATE 220 MG CAP PO SCH (09:00)
[2021-05-13] MEDS: APIXABAN 5 MG TABLET PO SCH ×2 (09:00→19:13)
[2021-05-13] MEDS: SULFASALAZINE 500 MG E.C. TAB PO SCH ×2 (09:00→19:13)
[2021-05-13] MEDS: VITAMIN D 1000 UNIT TAB PO SCH (09:00)
[2021-05-13] MEDS: FAMOTIDINE 20 MG TAB PO SCH ×2 (09:00→19:14)
[2021-05-13] MEDS: ASCORBIC ACID 500 MG TABLET PO SCH ×4 (09:00→19:14)
[2021-05-13] MEDS: FLUCONAZOLE 100 MG TAB PO SCH (09:00)
[2021-05-13] MEDS ORDERED: CEFTRIAXONE 1 GM/NS 50 ML 1 GM/50 ML BAG IV SCH (10:26)
[2021-05-13] MEDS ORDERED: FUROSEMIDE 20 MG/ 2ML VIAL IV ONE (10:26)
--- NOTE | 2021-05-13 10:27 | P.PN ---
Subjective Date of Service: 05/13/21 Chief Complaint: Respiratory failure Condition deteriorated patient transferred to the ICU refused intubation Review of Systems is unable to be obtained Physical Examination - Vital Signs Temperature: 98.5 F Blood Pressure: 143/73 Pulse: 72 Respirations: 23 Pulse Ox (%): 90 - Physical Exam General: Unresponsive - Studies Medications List Reviewed: Yes Assessment & Plan - Problems (Diagnosis) (1) Pneumonia due to COVID-19 virus Current Visit: Yes Status: Acute Plan: Respiratory failure condition worse patient is lying in ICU refused intubation blood pressure satisfactory try a dose of Lasix white count elevated chest x-ray diffuse interstitial changes prognosis very poor white count elevated.on Rocephin 1 dose of Lasix Physician Review: Patient Assessed, Agree with Above Assessment and Plan Physician Review Additional Text: COVID: Positive, unvaccinated CT scan chest: COMPARISON: No comparisons FINDINGS: Chest Wall: No suspicious thyroid nodules or pathologic lymphadenopathy. Lungs: Moderate bilateral airspace disease Pleura: No significant effusions or pneumothorax. Mediastinum/hima: No pathologic lymphadenopathy. Pulmonary arteries/Aorta: No filling defect identified. No aortic aneurysm. Heart: No significant pericardial effusion. Normal heart size. Upper abdomen: No acute abnormality. Hepatic steatosis. Bones: No acute abnormality. IMPRESSION: Negative for pulmonary embolism. Moderate bilateral airspace disease concerning for multifocal pneumonia, including Covid-19. Initial Chest x-ray: COMPARISON: No comparisons FINDINGS: Moderate patchy bilateral airspace disease per The heart size is within normal limits.No acute osseous abnormality. No significant pleural effusions or pneumothorax. IMPRESSION: Moderate patchy bilateral airspace disease concerning for multifocal pneumonia, including Covid-19
[2021-05-13] MEDS: CEFTRIAXONE/SWI 1gm 1 GM/10 ML SYR IV SCH (11:54)
[2021-05-13] MEDS ORDERED: MORPHINE 2 MG/ML SYR IV PRN (11:56)
--- NOTE | 2021-05-13 15:59 | P.PN ---
Date of Service: 05/13/21 Subjective Patient's condition worsened last night after she had gone to the bathroom. She said she did not really feel bad but she remained hypoxic in the 70s. They spoke with patient and she confirm she did not want to be intubated. We spoke to her last night as well and he states that they had talked and did not want a proceed with ventilator. He wanted to come by the hospital and discuss her case. wanted to come up to the hospital and try to meet on Friday. Patient will be transferred to the intensive care unit and he will be a do not intubate. Review of Systems 10-point ROS is otherwise unremarkable Physical Examination - Vital Signs reviewed - Physical Exam General: Alert, In no apparent distress, Oriented x3; BiPAP mask Respiratory: Clear to auscultation bilaterally, Normal air movement Cardiovascular: Regular rate/rhythm, Normal S1 S2, No murmurs Gastrointestinal: Normal bowel sounds, Soft and benign, Non-distended Musculoskeletal: No clubbing, No swelling Assessment & Plan - Problems (Diagnosis) (1) Pneumonia due to COVID-19 virus Current Visit: Yes Status: Acute - Plan Continue with POC as mentioned 1. Continue with IV steroids; may need to add neb treatments 2. Repeat chest x-ray 3. Gentle diuresing 4. Remains on BiPAP at this time 5. Do not intubate but patient otherwise wants to be resuscitated. 6. GI and DVT prophylaxis
[2021-05-13] MEDS: ROSUVASTATIN 10 MG TAB PO SCH (19:13)
[2021-05-14 05:32] LABS: ALT/SGPT 31 U/L (12-78); AST/SGOT 19 U/L (15-37); Albumin 2.7 g/dL (3.4-5.0); Alkaline Phosphatase 104 U/L (45-117); BUN Blood Urea Nitrogen 31 mg/dL (7-18); Bicarbonate 33 mmol/L (21-32); Bilirubin Total 0.7 mg/dL (0.2-1.0); Ferritin 912.8 ng/mL (8-388); Glucose Level 201 mg/dL (74-106); Magnesium 2.5 mg/dL (1.8-2.4); Potassium 3.9 mmol/L (3.5-5.1); Protein, Total 6.3 g/dL (6.4-8.2); Sodium Level 141 mmol/L (136-145)
[2021-05-14 05:47] LABS: Absolute Lymphocytes (CBC) 0.2 K/uL (0.7-4.9); Basophils % 0.2 % (0-1.3); Hematocrit 40.7 % (36.0-45.0); Lymphocytes % 0.7 % (15.3-44.8); MPV 7.2 fL (7.6-11.3); RBC Red Blood Cell Count 4.43 M/uL (3.86-4.86)
[2021-05-14] MEDS: SUCRALFATE 1 GM TABLET PO SCH ×4 (07:30→19:21)
[2021-05-14] MEDS: ZINC SULFATE 220 MG CAP PO SCH (09:00)
[2021-05-14] MEDS: FAMOTIDINE 20 MG TAB PO SCH ×2 (09:00→19:21)
[2021-05-14] MEDS: VITAMIN D 1000 UNIT TAB PO SCH (09:00)
[2021-05-14] MEDS: DULOXETINE 30 MG CAP PO SCH (09:00)
[2021-05-14] MEDS: ASPIRIN EC 81 MG TAB PO SCH (09:00)
[2021-05-14] MEDS: FLUCONAZOLE 100 MG TAB PO SCH (09:00)
[2021-05-14] MEDS: APIXABAN 5 MG TABLET PO SCH ×2 (09:00→19:21)
[2021-05-14] MEDS: THIAMINE HCL 100 MG TABLET PO SCH ×2 (09:00→19:21)
[2021-05-14] MEDS: FOLIC ACID 1 MG TABLET PO SCH (09:00)
[2021-05-14] MEDS: ENSURE HIGH PROTEIN 237 ML CAN PO SCH ×2 (09:00→19:21)
[2021-05-14] MEDS: GABAPENTIN 300 MG CAP PO SCH (09:00)
[2021-05-14] MEDS: SULFASALAZINE 500 MG E.C. TAB PO SCH ×2 (09:00→19:20)
[2021-05-14] MEDS: ASCORBIC ACID 500 MG TABLET PO SCH ×4 (09:00→19:21)
[2021-05-14] MEDS: FENOFIBRATE 160 MG TAB PO SCH (11:06)
--- NOTE | 2021-05-14 12:03 | P.PN ---
Subjective Date of Service: 05/14/21 Chief Complaint: Respiratory failure Not doing well she is very hypoxic Review of Systems is unable to be obtained Physical Examination - Vital Signs Temperature: 97.1 F Blood Pressure: 138/93 Pulse: 100 Respirations: 36 Pulse Ox (%): 84 - Physical Exam General: Unresponsive - Studies Medications List Reviewed: Yes Assessment & Plan - Problems (Diagnosis) (1) Pneumonia due to COVID-19 virus Current Visit: Yes Status: Acute Plan: Respiratory failure start on D5 half-normal saline unable to insert a Dobbhoff tube due to significant desaturation chemistries reviewed white count elevated trial of fenofibrate as there is some mention that has helped patients with Covid infection Physician Review: Patient Assessed, Agree with Above Assessment and Plan
--- NOTE | 2021-05-14 12:15 | P.PN ---
Subjective Date of Service: 05/14/21 Primary Care Provider: unknown Chief Complaint: Respiratory failure Subjective: Other (Currently on BiPAP at 100%.) Physical Examination - Vital Signs Temperature: 97.1 F Blood Pressure: 138/93 Pulse: 100 Respirations: 36 Pulse Ox (%): 84 - Studies Medications List Reviewed: Yes Assessment & Plan Discharge Plan: LTAC Plan to discharge in: Greater than 2 days Physician Review Additional Text: COVID: Positive, unvaccinated CT scan chest: COMPARISON: No comparisons FINDINGS: Chest Wall: No suspicious thyroid nodules or pathologic lymphadenopathy. Lungs: Moderate bilateral airspace disease Pleura: No significant effusions or pneumothorax. Mediastinum/hima: No pathologic lymphadenopathy. Pulmonary arteries/Aorta: No filling defect identified. No aortic aneurysm. Heart: No significant pericardial effusion. Normal heart size. Upper abdomen: No acute abnormality. Hepatic steatosis. Bones: No acute abnormality. IMPRESSION: Negative for pulmonary embolism. Moderate bilateral airspace disease concerning for multifocal pneumonia, including Covid-19. Initial Chest x-ray: COMPARISON: No comparisons FINDINGS: Moderate patchy bilateral airspace disease per The heart size is within normal limits.No acute osseous abnormality. No significant pleural effus ions or pneumothorax. IMPRESSION: Moderate patchy bilateral airspace disease concerning for multifocal pneumonia, including Covid-19. Follow-up chest x-ray 05/13/2021: COMPARISON: May 12, 2001 FINDINGS: No significant change bilateral pulmonary opacities. Subtle lucency adjacent to heart aand mediastinum The heart is normal size IMPRESSION: No significant change diffuse bilateral pulmonary opacities likely pneumonia Subtle lucency adjacent to heart and mediastinum is equivocal for mild pneumomediastinum and can be monitored on a subsequent exam Physical exam: General: Alert, some anxiety noted HEENT: Oropharynx moist. Neck: Supple Respiratory: Poor inspiration and expiration. Currently on BiPAP at 100%. Cardiovascular: Regular rate/rhythm, Normal S1 S2, No murmurs Gastrointestinal: Normal bowel sounds, Soft and benign, Non-distended, No tenderness Musculoskeletal: No clubbing, No swelling, No tenderness Integumentary: No rashes Neurological: Normal gait, Normal speech, Normal strength at 5/5 x4 extr, Normal tone, Sensation intact, Cranial nerves 3-12 intact, Normal affect Lymphatics: No axilla or inguinal lymphadenopathy Impression: Dyspnea secondary to acute respiratory failure with hypoxia secondary to bilateral Covid pneumonia, unvaccinated, with mild pneumomediastinum Hyperlipidemia Rheumatoid arthritis GERD Obesity, BMI 32.8 Plan: Dyspnea secondary to acute respiratory failure with hypoxia secondary to bilateral Covid pneumonia, unvaccinated, with mild pneumomediastinum: Patient now on BiPAP at 100%. Patient requiring nutrition. Dobbhoff was unsuccessful yesterday. Will try again today. Patient may require medication for anxiety. Case discussed with pulmonology. Provide D5 half-normal salineIV fluids for now. If Dobbhoff not successful will need to consider PICC line with TPN. Patient has completed baricitinib. Continue IV steroids, vitamin supplementation. Continue to monitor CRP and ferritin. Patient remains on Rocephin and Diflucan. Recheck chest x-ray tomorrow. Advanced directives readdressed. Patient is DO NOT INTUBATE. Spoke with son concerning plan of care. Hyperlipidemia: Continue with Crestor 10 mg daily and TriCor.. Rheumatoid arthritis: Continue with sulfasalazine 1000 mg 1 pill twice daily, gabapentin 300 mg daily and Cymbalta 60 mg daily. Medication for pain provided. GERD: Continue with Pepcid Oral candidiasis: Continue with Diflucan Leukocystosis: Continue with current meds to cover for opportunistic infection. Obesity, BMI 32.8: Continue lifestyle modification education CODE STATUS: This was addressed in detail with the patient. Patient remains DO NOT INTUBATE DVT prophylaxis: Naina Advance care [email or web address] minutes: Long-term acute care facility placement Time Spent Managing Pts Care (In Minutes): 55
[2021-05-14] MEDS: D5 0.45 NS 1,000 ML IV SCH (12:28)
[2021-05-14] MEDS: CEFTRIAXONE/SWI 1gm 1 GM/10 ML SYR IV SCH (12:28)
[2021-05-14] MEDS: METHYLPREDNISOLONE 125 MG INJ IV SCH ×2 (12:28→20:12)
[2021-05-14] MEDS: ROSUVASTATIN 10 MG TAB PO SCH (19:21)
[2021-05-14 19:50] LABS: Blood Morphology Comment NOTED (NOT SEEN); Platelet Estimate ADEQ; Poikilocytosis 1+; White Blood Cell Scan OK (OK)
[2021-05-15] MEDS: D5 0.45 NS 1,000 ML IV SCH ×2 (01:47→16:36)
[2021-05-15 05:06] LABS: Absolute Lymphocytes (CBC) 0.1 K/uL (0.7-4.9); Basophils % 0.1 % (0-1.3); Hematocrit 37.7 % (36.0-45.0); Lymphocytes % 0.3 % (15.3-44.8); MPV 7.2 fL (7.6-11.3); RBC Red Blood Cell Count 4.09 M/uL (3.86-4.86)
[2021-05-15 05:23] LABS: ALT/SGPT 23 U/L (12-78); AST/SGOT 15 U/L (15-37); Albumin 2.3 g/dL (3.4-5.0); Alkaline Phosphatase 88 U/L (45-117); BUN Blood Urea Nitrogen 27 mg/dL (7-18); Bicarbonate 33 mmol/L (21-32); Bilirubin Total 0.6 mg/dL (0.2-1.0); Ferritin 1074.3 ng/mL (8-388); Glucose Level 220 mg/dL (74-106); Magnesium 2.4 mg/dL (1.8-2.4); Sodium Level 141 mmol/L (136-145)
--- NOTE | 2021-05-15 06:04 | P.PN ---
Subjective Date of Service: 05/15/21 Primary Care Provider: unknown Chief Complaint: Respiratory failure Patient remains on BiPAP at 100%. Still not successful in placing Dobbhoff. Physical Examination - Vital Signs Temperature: 96.3 F Blood Pressure: 118/65 Pulse: 72 Respirations: 20 Pulse Ox (%): 93 - Studies Medications List Reviewed: Yes Assessment & Plan Discharge Plan: LTAC Plan to discharge in: Greater than 2 days Physician Review Additional Text: COVID: Positive, unvaccinated CT scan chest: COMPARISON: No comparisons FINDINGS: Chest Wall: No suspicious thyroid nodules or pathologic lymphadenopathy. Lungs: Moderate bilateral airspace disease Pleura: No significant effusions or pneumothorax. Mediastinum/hima: No pathologic lymphadenopathy. Pulmonary arteries/Aorta: No filling defect identified. No aortic aneurysm. Heart: No significant pericardial effusion. Normal heart size. Upper abdomen: No acute abnormality. Hepatic steatosis. Bones: No acute abnormality. IMPRESSION: Negative for pulmonary embolism. Moderate bilateral airspace disease concerning for multifocal pneumonia, including Covid-19. Initial Chest x-ray: COMPARISON: No comparisons FINDINGS: Moderate patchy bilateral airspace disease per The heart size is within normal limits.No acute osseous abnormality. No significant pleural e ffusions or pneumothorax. IMPRESSION: Moderate patchy bilateral airspace disease concerning for multifocal pneumonia, including Covid-19. Follow-up chest x-ray 05/15/2021: COMPARISON: May 13, 2021 FINDINGS: No significant change in bilateral pulmonary opacities. The heart is normal size IMPRESSION: No significant change in the bilateral pulmonary opacities Physical exam: General: Alert, some anxiety noted HEENT: Oropharynx moist. Neck: Supple Respiratory: Poor inspiration and expiration. Currently on BiPAP at 100%. Cardiovascular: Regular rate/rhythm, Normal S1 S2, No murmurs Gastrointestinal: Normal bowel sounds, Soft and benign, Non-distended, No tenderness Musculoskeletal: No clubbing, No swelling, No tenderness Integumentary: No rashes Neurological: Normal gait, Normal speech, Normal strength at 5/5 x4 extr, Normal tone, Sensation intact, Cranial nerves 3-12 intact, Normal affect Lymphatics: No axilla or inguinal lymphadenopathy Impression: Dyspnea secondary to acute respiratory failure with hypoxia secondary to bilateral Covid pneumonia, unvaccinated, with mild pneumomediastinum Hyperlipidemia Rheumatoid arthritis GERD Obesity, BMI 32.8 Plan: Dyspnea secondary to acute respiratory failure with hypoxia secondary to bilateral Covid pneumonia, unvaccinated, with mild pneumomediastinum: Patient remains on BiPAP at 100%. Dobbhoff unsuccessful in placement yesterday. Case discussed at length with pulmonology. Pulmonology recommends PICC line and initiation of TPN. This was addressed with patient and who agree with plan. PICC line to be ordered. Dietary consulted to help with the TPN. For now continue with IV fluids. Once TPN started then will discontinue IV fluids. Continue IV steroids, vitamin supplementation. CRP and ferritin elevated. Pulmonology gave Actemra. Continue to monitor CRP and ferritin. Patient r emains on Rocephin and Diflucan. This x-ray shows no change. Patient remains DO NOT INTUBATE. Continue to monitor closely. Hyperlipidemia: Crestor discontinued. Continue fenofibrate. Rheumatoid arthritis: Continue with sulfasalazine 1000 mg 1 pill twice daily, gabapentin 300 mg daily and Cymbalta 60 mg daily. Medication for pain provided. GERD: Continue with Pepcid Oral candidiasis: Continue with Diflucan Leukocystosis: Continue with current meds to cover for opportunistic infection. Obesity, BMI 32.8: Continue lifestyle modification education CODE STATUS: This was addressed in detail with the patient. Patient remains DO NOT INTUBATE DVT prophylaxis: Eliquis [facility] [id number] minutes: Long-term acute care facility placement Time Spent Managing Pts Care (In Minutes): 55
[2021-05-15] MEDS: SUCRALFATE 1 GM TABLET PO SCH ×4 (07:30→19:03)
--- NOTE | 2021-05-15 08:34 | P.PN ---
Subjective Date of Service: 05/15/21 Primary Care Provider: unknown Chief Complaint: Respiratory failure Patient continues to remain patient continues to remain very hypoxic unable to insert a Dobbhoff tube due to significant desaturation Review of Systems Respiratory: Shortness of Breath Physical Examination - Vital Signs Temperature: 96.3 F Blood Pressure: 122/69 Pulse: 72 Respirations: 20 Pulse Ox (%): 92 - Physical Exam General: Moderate distress - Studies Medications List Reviewed: Yes Assessment & Plan - Problems (Diagnosis) (1) Pneumonia due to COVID-19 virus Current Visit: Yes Status: Acute Plan: Respiratory failure respiratory failure no change chest x-ray ordered white count is declining white count is declining start patient on Barcitinib CRP now elevated Physician Review: Patient Assessed, Agree with Above Assessment and Plan
[2021-05-15] MEDS: FAMOTIDINE 20 MG TAB PO SCH ×2 (09:00→19:03)
[2021-05-15] MEDS: DULOXETINE 30 MG CAP PO SCH (09:00)
[2021-05-15] MEDS: FLUCONAZOLE 100 MG TAB PO SCH (09:00)
[2021-05-15] MEDS: ASCORBIC ACID 500 MG TABLET PO SCH ×2 (09:00→12:05)
[2021-05-15] MEDS: VITAMIN D 1000 UNIT TAB PO SCH (09:00)
[2021-05-15] MEDS: FOLIC ACID 1 MG TABLET PO SCH (09:00)
[2021-05-15] MEDS: ASPIRIN EC 81 MG TAB PO SCH (09:00)
[2021-05-15] MEDS: THIAMINE HCL 100 MG TABLET PO SCH (09:00)
[2021-05-15] MEDS: ENSURE HIGH PROTEIN 237 ML CAN PO SCH ×2 (09:00→19:03)
[2021-05-15] MEDS: SULFASALAZINE 500 MG E.C. TAB PO SCH ×2 (09:00→19:03)
[2021-05-15] MEDS: FENOFIBRATE 160 MG TAB PO SCH (09:00)
[2021-05-15] MEDS: ZINC SULFATE 220 MG CAP PO SCH (09:00)
[2021-05-15] MEDS: APIXABAN 5 MG TABLET PO SCH ×2 (09:00→19:03)
[2021-05-15] MEDS: CEFTRIAXONE/SWI 1gm 1 GM/10 ML SYR IV SCH (09:31)
[2021-05-15] MEDS: METHYLPREDNISOLONE 125 MG INJ IV SCH ×2 (09:31→20:19)
[2021-05-15] MEDS ORDERED: BARICITINIB 2 MG TABLET PO SCH (10:00)
[2021-05-15] MEDS ORDERED: DEXTROSE 10%-WATER 500 ML IV SCH ×2 (11:00→14:00)
[2021-05-15] MEDS ORDERED: TOCILIZUMAB 800 MG in NA CHLORIDE 0.9% 60 ML IV ONE (11:00)
--- NOTE | 2021-05-15 11:18 | RAD REPORT ---
EXAM DESCRIPTION: Joshua Single View05/15/2021 10:33 am CLINICAL HISTORY: Respiratory failure COMPARISON: May 13, 2021 FINDINGS: No significant change in bilateral pulmonary opacities. The heart is normal size IMPRESSION: No significant change in the bilateral pulmonary opacities
--- NOTE | 2021-05-15 14:33 | RAD REPORT ---
EXAM DESCRIPTION: RAD - Chest Single View - 05/15/2021 2:17 pm CLINICAL HISTORY: PICC line placement COMPARISON: Chest Single View dated 05/15/2021; Chest Single View dated 05/13/2021; Chest Single View dated 05/12/2021; Chest Single View dated 05/11/2021 FINDINGS: Left subclavian approach PICC with tip overlying the proximal SVC in satisfactory position aeration of the lungs is otherwise similar. The heart size is normal. IMPRESSION: Left subclavian approach PICC with tip overlying the SVC in satisfactory position.
[2021-05-15] MEDS ORDERED: AA 4.25 %/D5W/ELECTROLYTES 2,000 ML, Lipids 20% 250 ML with MULTIVITAMINS INJ 10 ML IV SCH ×3 (17:00)
[2021-05-15] MEDS ORDERED: AA 5%/D20W/ELECTROLYTES-TPN 2,000 ML, Lipids 20% 250 ML with MULTIVITAMINS INJ 10 ML IV SCH ×3 (17:00)
--- NOTE | 2021-05-16 06:00 | P.PN ---
Subjective Date of Service: 05/16/21 Primary Care Provider: unknown Chief Complaint: Respiratory failure Patient remains on BiPAP at 100%. Still not successful in placing Dobbhoff. Physical Examination - Vital Signs Temperature: 97.5 F Blood Pressure: 156/81 Pulse: 74 Respirations: 21 Pulse Ox (%): 96 - Studies Medications List Reviewed: Yes Assessment & Plan Physician Review: Patient Assessed, Agree with Above Assessment and Plan Physician Review Additional Text: COVID: Positive, unvaccinated CT scan chest: COMPARISON: No comparisons FINDINGS: Chest Wall: No suspicious thyroid nodules or pathologic lymphadenopathy. Lungs: Moderate bilateral airspace disease Pleura: No significant effusions or pneumothorax. Mediastinum/hima: No pathologic lymphadenopathy. Pulmonary arteries/Aorta: No filling defect identified. No aortic aneurysm. Heart: No significant pericardial effusion. Normal heart size. Upper abdomen: No acute abnormality. Hepatic steatosis. Bones: No acute abnormality. IMPRESSION: Negative for pulmonary embolism. Moderate bilateral airspace disease concerning for multifocal pneumonia, including Covid-19. Initial Chest x-ray: COMPARISON: No comparisons FINDINGS: Moderate patchy bilateral airspace disease per The heart size is within normal limits.No acute osseous abnormality. No significant pleural effusions or pneumothorax. IMPRESSION: Moderate patchy bilateral airspace disease concerning for multifocal pneumonia, including Covid-19. Follow-up chest x-ray 05/15/2021: COMPARISON: May 13, 2021 FINDINGS: No significant change in bilateral pulmonary opacities. The heart is normal size IMPRESSION: No significant change in the bilateral pulmonary opacities Physical exam: General: Alert, some anxiety noted HEENT: Oropharynx moist. Neck: Supple Respiratory: Poor inspiration and expiration. Currently on BiPAP at 100%. Cardiovascular: Regular rate/rhythm, Normal S1 S2, No murmurs Gastrointestinal: Normal bowel sounds, Soft and benign, Non-distended, No tenderness Musculoskeletal: No clubbing, No swelling, No tenderness Integumentary: No rashes Neurological: Normal gait, Normal speech, Normal strength at 5/5 x4 extr, Normal tone, Sensation intact, Cranial nerves 3-12 intact, Normal affect Lymphatics: No axilla or inguinal lymphadenopathy Impression: Dyspnea secondary to acute respiratory failure with hypoxia secondary to bilateral Covid pneumonia, unvaccinated, with mild pneumomediastinum Hyperlipidemia Rheumatoid arthritis GERD Obesity, BMI 32.8 Plan: Dyspnea secondary to acute respiratory failure with hypoxia secondary to bilateral Covid pneumonia, unvaccinated, with mild pneumomediastinum: Patient remains on BiPAP at 100%. Dobbhoff unsuccessful in placement yesterday. Case discussed at length with pulmonology. Pulmonology recommends PICC line and init iation of TPN. This was addressed with patient and who agree with plan. PICC line to be ordered. Dietary consulted to help with the TPN. For now continue with IV fluids. Once TPN started then will discontinue IV fluids. Continue IV steroids, vitamin supplementation. CRP and ferritin elevated. Pulmonology gave Actemra. Continue to monitor CRP and ferritin. Patient remains on Rocephin and Diflucan. This x-ray shows no change. Patient remains DO NOT INTUBATE. Continue to monitor closely. Hyperlipidemia: Crestor discontinued. Continue fenofibrate. Rheumatoid arthritis: Continue with sulfasalazine 1000 mg 1 pill twice daily, gabapentin 300 mg daily and Cymbalta 60 mg daily. Medication for pain provided. GERD: Continue with Pepcid Oral candidiasis: Continue with Diflucan Leukocystosis: Continue with current meds to cover for opportunistic infection. Obesity, BMI 32.8: Continue lifestyle modification education CODE STATUS: This was addressed in detail with the patient. Patient remains DO NOT INTUBATE DVT prophylaxis: Elinegrais [facility] [id number] minutes: Long-term acute care facility placement
[2021-05-16 06:12] LABS: Absolute Lymphocytes (CBC) 0.1 K/uL (0.7-4.9); Basophils % 0.2 % (0-1.3); Lymphocytes % 0.9 % (15.3-44.8); MPV 7.4 fL (7.6-11.3); RBC Red Blood Cell Count 4.12 M/uL (3.86-4.86)
[2021-05-16 06:47] LABS: ALT/SGPT 21 U/L (12-78); AST/SGOT 18 U/L (15-37); Albumin 2.2 g/dL (3.4-5.0); Alkaline Phosphatase 99 U/L (45-117); BUN Blood Urea Nitrogen 23 mg/dL (7-18); Bicarbonate 31 mmol/L (21-32); Bilirubin Total 0.4 mg/dL (0.2-1.0); Glucose Level 293 mg/dL (74-106); Magnesium 2.3 mg/dL (1.8-2.4); Protein, Total 6.1 g/dL (6.4-8.2); Sodium Level 139 mmol/L (136-145)
[2021-05-16 07:09] LABS: Platelet Estimate ADEQ; White Blood Cell Scan OK (OK)
[2021-05-16 07:10] LABS: Blood Morphology Comment NOT SEEN (NOT SEEN)
[2021-05-16] MEDS: SUCRALFATE 1 GM TABLET PO SCH ×4 (07:30→19:02)
--- NOTE | 2021-05-16 07:47 | RAD REPORT ---
EXAM DESCRIPTION: RAD - Chest Single View - 05/16/2021 5:42 am CLINICAL HISTORY: Respiratory failure COMPARISON: Chest Single View dated 05/15/2021; Chest Single View dated 05/15/2021; Chest Single View dated 05/13/2021; Chest Single View dated 05/12/2021 FINDINGS: Lungs: Similar patchy airspace disease bilaterally. Pleural: No significant pleural effusions or pneumothorax. Cardiac: The heart size is within normal limits. Bones: No acute fractures. Lines: None. IMPRESSION: No significant change in aeration of the lungs compared with 05/15/2021 with similar pat leah bilateral airspace disease.
[2021-05-16] MEDS: ZINC SULFATE 220 MG CAP PO SCH (09:00)
[2021-05-16] MEDS: ASPIRIN EC 81 MG TAB PO SCH (09:00)
[2021-05-16] MEDS: FAMOTIDINE 20 MG TAB PO SCH ×2 (09:00→19:08)
[2021-05-16] MEDS: ENSURE HIGH PROTEIN 237 ML CAN PO SCH ×2 (09:00→19:08)
[2021-05-16] MEDS: DULOXETINE 30 MG CAP PO SCH (09:00)
[2021-05-16] MEDS: FLUCONAZOLE 100 MG TAB PO SCH (09:00)
[2021-05-16] MEDS: FOLIC ACID 1 MG TABLET PO SCH (09:00)
[2021-05-16] MEDS: FENOFIBRATE 160 MG TAB PO SCH (09:00)
[2021-05-16] MEDS: SULFASALAZINE 500 MG E.C. TAB PO SCH ×2 (09:00→19:02)
[2021-05-16] MEDS: APIXABAN 5 MG TABLET PO SCH ×2 (09:00→19:08)
[2021-05-16] MEDS: METHYLPREDNISOLONE 125 MG INJ IV SCH ×2 (10:05→20:12)
[2021-05-16] MEDS: CEFTRIAXONE/SWI 1gm 1 GM/10 ML SYR IV SCH (10:05)
--- NOTE | 2021-05-16 12:03 | P.PN ---
Subjective Date of Service: 05/16/21 Primary Care Provider: unknown Chief Complaint: Respiratory failure Patient's oxygenation and patient's oxygenation is improving status post Actemra Review of Systems is unable to be obtained Physical Examination - Vital Signs Temperature: 97.3 F Blood Pressure: 148/86 Pulse: 76 Respirations: 18 Pulse Ox (%): 97 - Physical Exam General: Unresponsive - Studies Medications List Reviewed: Yes Assessment & Plan - Problems (Diagnosis) (1) Pneumonia due to COVID-19 virus Current Visit: Yes Status: Acute Plan: Respiratory failure patient respiratory failure patient's condition is improving it is post Actemra white count is decreased white count has declined labs reviewed 1 dose of Lasix Physician Review: Patient Assessed, Agree with Above Assessment and Plan
[2021-05-16] MEDS ORDERED: FUROSEMIDE 20 MG/ 2ML VIAL IV ONE (12:04)
--- NOTE | 2021-05-16 14:21 | P.PN ---
Subjective Date of Service: 05/16/21 Primary Care Provider: unknown Chief Complaint: Respiratory failure Patient appears comfortable. BiPAP at 96% Physical Examination - Vital Signs Temperature: 97.3 F Blood Pressure: 158/108 Pulse: 84 Respirations: 25 Pulse Ox (%): 96 - Studies Medications List Reviewed: Yes Assessment & Plan Discharge Plan: Home Plan to discharge in: Greater than 2 days Physician Review Additional Text: COVID: Positive, unvaccinated CT scan chest: COMPARISON: No comparisons FINDINGS: Chest Wall: No suspicious thyroid nodules or pathologic lymphadenopathy. Lungs: Moderate bilateral airspace disease Pleura: No significant effusions or pneumothorax. Mediastinum/hima: No pathologic lymphadenopathy. Pulmonary arteries/Aorta: No filling defect identified. No aortic aneurysm. Heart: No significant pericardial effusion. Normal heart size. Upper abdomen: No acute abnormality. Hepatic steatosis. Bones: No acute abnormality. IMPRESSION: Negative for pulmonary embolism. Moderate bilateral airspace disease concerning for multifocal pneumonia, including Covid-19. Initial Chest x-ray: COMPARISON: No comparisons FINDINGS: Moderate patchy bilateral airspace disease per The heart size is within normal limits.No acute osseous abnormality. No significant pleural effusions or pneumothorax. IMPRESSION: Moderate patchy bilateral airspace disease concerning for multifocal pneumonia, including Covid-19. Follow-up chest x-ray 05/16/2021: COMPARISON: Chest Single View dated 05/15/2021; Chest Single View dated 05/15/2021; Chest Single View dated 05/13/2021; Chest Single View dated 05/12/2021 FINDINGS: Lungs: Similar patchy airspace disease bilaterally. Pleural: No significant pleural effusions or pneumothorax. Cardiac: The heart size is within normal limits. Bones: No acute fractures. Lines: None. IMPRESSION: No significant change in aeration of the lungs compared with 05/15/2021 with similar patchy bilateral airspace disease. Physical exam: General: Patient alert. Less anxious today. HEENT: Oropharynx moist. Neck: Supple Respiratory: Poor inspiration and expiration. Currently on BiPAP at 96% Cardiovascular: Regular rate/rhythm, Normal S1 S2, No murmurs Gastrointestinal: Normal bowel sounds, Soft and benign, Non-distended, No tenderness Musculoskeletal: No clubbing, No swelling, No tenderness Integumentary: No rashes Neurological: Normal gait, Normal speech, Normal strength at 5/5 x4 extr, Normal tone, Sensation intact, Cranial nerves 3-12 intact, Normal affect Lymphatics: No axilla or inguinal lymphadenopathy Impression: Dyspnea secondary to acute respiratory failure with hypoxia secondary to bilateral Covid pneumonia, unvaccinated, with mild pneumomediastinum Hyperlipidemia Rheumatoid arthritis GERD Obesity, BMI 32.8 Plan: Dyspnea secondary to acute respiratory failure with hypoxia secondary to bilateral Covid pneumonia, unvaccinated, with mild pneumomediastinum: Patient remained stable at this time. Less anxious today. Currently on BiPAP at 96%. PICC line ordered. TPN to be initiated. Continue IV steroids, vitamin supplementation. CRP improved. Continue to monitor CRP and ferritin. Pulmonology gave Actemra. White count improved. Patient remains on Rocephin and Diflucan. Patient remains DO NOT INTUBATE. Continue to monitor closely. Hyperlipidemia: Continue fenofibrate. Rheumatoid arthritis: Continue with sulfasalazine 1000 mg 1 pill twice daily, gabapentin 300 mg daily and Cymbalta 60 mg daily. Medication for pain provided. GERD: Continue with Pepcid Oral candidiasis: Continue with Diflucan Leukocystosis: Continue with current meds to cover for opportunistic infection. Obesity, BMI 32.8: Continue lifestyle modification education CODE STATUS: This was addressed in detail with the patient. Patient remains DO NOT INTUBATE DVT prophylaxis: Elinegrais [facility] [id number] minutes: Long-term acute care facility placement Time Spent Managing Pts Care (In Minutes): 55
[2021-05-16] MEDS: AA 4.25 %/D5W/ELECTROLYTES 2,000 ML, Lipids 20% 250 ML with MULTIVITAMINS INJ 10 ML IV SCH ×3 (17:43)
[2021-05-17 04:36] LABS: Absolute Lymphocytes (CBC) 0.1 K/uL (0.7-4.9); Basophils % 0.2 % (0-1.3); Hematocrit 40.3 % (36.0-45.0); MPV 7.4 fL (7.6-11.3); RBC Red Blood Cell Count 4.41 M/uL (3.86-4.86)
[2021-05-17 04:59] LABS: ALT/SGPT 30 U/L (12-78); AST/SGOT 21 U/L (15-37); Albumin 2.3 g/dL (3.4-5.0); Alkaline Phosphatase 98 U/L (45-117); BUN Blood Urea Nitrogen 30 mg/dL (7-18); Bicarbonate 30 mmol/L (21-32); Bilirubin Total 0.7 mg/dL (0.2-1.0); Ferritin 1330.5 ng/mL (8-388); Glucose Level 305 mg/dL (74-106); Magnesium 2.2 mg/dL (1.8-2.4); Potassium 4.4 mmol/L (3.5-5.1); Protein, Total 6.1 g/dL (6.4-8.2); Sodium Level 136 mmol/L (136-145)
--- NOTE | 2021-05-17 05:49 | P.PN ---
Subjective Date of Service: 05/17/21 Primary Care Provider: unknown Chief Complaint: Respiratory failure Subjective: Other (Patient appears stable today. BiPAP down to 85%.) Patient appears comfortable. BiPAP at 96% Physical Examination - Vital Signs Temperature: 96.9 F Blood Pressure: 143/85 Pulse: 91 Respirations: 23 Pulse Ox (%): 91 - Studies Medications List Reviewed: Yes Assessment & Plan Discharge Plan: Home Plan to discharge in: Greater than 2 days Physician Review Additional Text: COVID: Positive, unvaccinated CT scan chest: COMPARISON: No comparisons FINDINGS: Chest Wall: No suspicious thyroid nodules or pathologic lymphadenopathy. Lungs: Moderate bilateral airspace disease Pleura: No significant effusions or pneumothorax. Mediastinum/hima: No pathologic lymphadenopathy. Pulmonary arteries/Aorta: No filling defect identified. No aortic aneurysm. Heart: No significant pericardial effusion. Normal heart size. Upper abdomen: No acute abnormality. Hepatic steatosis. Bones: No acute abnormality. IMPRESSION: Negative for pulmonary embolism. Moderate bilateral airspace disease concerning for multifocal pneumonia, including Covid-19. Initial Chest x-ray: COMPARISON: No comparisons FINDINGS: Moderate patchy bilateral airspace disease per The heart size is within normal limits.No acute osseous abnormality. No significant pleural effusions or pneumothorax. IMPRESSION: Moderate patchy bilateral airspace disease concerning for multifocal pneumonia, including Covid-19. Follow-up chest x-ray 05/16/2021: COMPARISON: Chest Single View dated 05/15/2021; Chest Single View dated 05/15/2021; Chest Single View dated 05/13/2021; Chest Single View dated 05/12/2021 FINDINGS: Lungs: Similar patchy airspace disease bilaterally. Pleural: No significant pleural effusions or pneumothorax. Cardiac: The heart size is within normal limits. Bones: No acute fractures. Lines: None. IMPRESSION: No significant change in aeration of the lungs compared with 05/15/2021 with similar patchy bilateral airspace disease. Physical exam: General: Patient alert. Less anxious today. HEENT: Oropharynx moist. Neck: Supple Respiratory: Good inspiration noted. BiPAP down to 85%. Cardiovascular: Regular rate/rhythm, Normal S1 S2, No murmurs Gastrointestinal: Normal bowel sounds, Soft and benign, Non-distended, No tenderness Musculoskeletal: No clubbing, No swelling, No tenderness Integumentary: No rashes Neurological: Normal gait, Normal speech, Normal strength at 5/5 x4 extr, Normal tone, Sensation intact, Cranial nerves 3-12 intact, Normal affect Lymphatics: No axilla or inguinal lymphadenopathy Impression: Dyspnea secondary to acute respiratory failure with hypoxia secondary to bilateral Covid pneumonia, unvaccinated, with mild pneumomediastinum Hyperlipidemia Rheumatoid arthritis GERD Obesity, BMI 32.8 Plan: Dyspnea secondary to acute respiratory failure with hypoxia secondary to bilateral Covid pneumonia, unvaccinated, with mild pneumomediastinum: Patient remained stable at this time. Less anxious today. Continue to provide medication for anxiety and pain. Currently on BiPAP at 85%. Continue to wean off BiPAP. Maintain sats above 93%. PICC line in place. Continue TPN. Continue IV steroids, vitamin supplementation. CRP improved. Continue to monitor CRP and ferritin. White count improved. Patient remains on Rocephin and Diflucan. Patient remains DO NOT INTUBATE. Will change Eliquis to Lovenox. This can be transition back once the patient is able to take oral intake. Oral intake will be initiated once patient able to get off BiPAP. Continue to monitor closely. Hyperlipidemia: Continue fenofibrate. Rheumatoid arthritis: Continue with sulfasalazine 1000 mg 1 pill twice daily, gabapentin 300 mg daily and Cymbalta 60 mg daily. Medication for pain provided. GERD: Continue with Pepcid Oral candidiasis: Continue with Diflucan Leukocystosis: Continue with current meds to cover for opportunistic infection. Obesity, BMI 32.8: Continue lifestyle modification education CODE STATUS: This was addressed in detail with the patient. Patient remains DO NOT INTUBATE DVT prophylaxis: Lovenox [facility] [id number] minutes: Long-term acute care facility placement Time Spent Managing Pts Care (In Minutes): 55
[2021-05-17] MEDS: SUCRALFATE 1 GM TABLET PO SCH ×4 (07:30→19:12)
--- NOTE | 2021-05-17 08:03 | P.PN ---
Subjective Date of Service: 05/17/21 Primary Care Provider: unknown Chief Complaint: Respiratory failure Patient's oxygen requirement patient's oxygen requirements are declining otherwise no change on BiPAP Review of Systems Respiratory: Shortness of Breath Physical Examination - Vital Signs Temperature: 96.9 F Blood Pressure: 146/89 Pulse: 107 Respirations: 25 Pulse Ox (%): 88 - Physical Exam General: Alert, Cooperative - Studies Medications List Reviewed: Yes Assessment & Plan - Problems (Diagnosis) (1) Pneumonia due to COVID-19 virus Current Visit: Yes Status: Acute Plan: Respiratory failure respiratory failure oxygen requirements are now down to 85% white count is down down to normal white count has declined significantly Physician Review: Patient Assessed, Agree with Above Assessment and Plan
--- NOTE | 2021-05-17 08:22 | RAD REPORT ---
EXAM DESCRIPTION: RAD - Chest Single View - 05/17/2021 5:44 am CLINICAL HISTORY: Respiratory failure COMPARISON: Chest Single View dated 05/16/2021; Chest Single View dated 05/15/2021; Chest Single View d ated 05/15/2021; Chest Single View dated 05/13/2021 FINDINGS: Lines: Left subclavian approach PICC. The tip overlies the right atrium appear Lungs: Decreased lung volumes with mild ill-defined bilateral airspace disease. The airspace disease is favored unchanged when taking into account the lung volume difference. Pleural: No significant pleural effusions or pneumothorax. Cardiac: The heart size is within normal limits. Bones: No acute fractures. Other: IMPRESSION: Decreased lung volumes with probably unchanged mild bilateral airspace disease that may reflect multifocal pneumonia.
[2021-05-17] MEDS: LORazepam 2 MG/ML VIAL IV PRN ×2 (08:37→09:41)
[2021-05-17] MEDS: FUROSEMIDE 20 MG/ 2ML VIAL IV SCH (08:49)
[2021-05-17] MEDS: ZINC SULFATE 220 MG CAP PO SCH (09:00)
[2021-05-17] MEDS: APIXABAN 5 MG TABLET PO SCH (09:00)
[2021-05-17] MEDS: FENOFIBRATE 160 MG TAB PO SCH (09:00)
[2021-05-17] MEDS: SULFASALAZINE 500 MG E.C. TAB PO SCH ×2 (09:00→19:12)
[2021-05-17] MEDS: FOLIC ACID 1 MG TABLET PO SCH (09:00)
[2021-05-17] MEDS: FAMOTIDINE 20 MG TAB PO SCH ×2 (09:00→19:13)
[2021-05-17] MEDS: ASPIRIN EC 81 MG TAB PO SCH (09:00)
[2021-05-17] MEDS: ENSURE HIGH PROTEIN 237 ML CAN PO SCH ×2 (09:00→19:12)
[2021-05-17] MEDS: FLUCONAZOLE 100 MG TAB PO SCH (09:00)
[2021-05-17] MEDS: DULOXETINE 30 MG CAP PO SCH (09:00)
[2021-05-17] MEDS: CEFTRIAXONE/SWI 1gm 1 GM/10 ML SYR IV SCH (09:13)
[2021-05-17] MEDS: METHYLPREDNISOLONE 125 MG INJ IV SCH ×2 (09:13→20:04)
[2021-05-17] MEDS: HYDROMORPHONE HCL 0.5 MG/0.5 ML INJ IV PRN ×2 (09:27→21:21)
--- NOTE | 2021-05-17 10:55 | RAD REPORT ---
EXAM DESCRIPTION: RAD - Chest Single View - 05/17/2021 10:42 am CLINICAL HISTORY: probable pneumothorax COMPARISON: Chest Single View dated 05/17/2021; Chest Single View dated 05/16/2021; Chest Single View da shelly 05/15/2021; Chest Single View dated 05/15/2021 FINDINGS: Lines: Left subclavian approach PICC Lungs: Bilateral airspace disease noted. Increased left lung atelectasis. Pleural: Large left pneumothorax with mediastinal shift Cardiac: The heart size is within normal limits. Bones: No acute fractures. Other: IMPRESSION: Large left sided pneumothorax with suspected tension component. Discussed with Dr. Chato hawkins by Dr. Ayoub at 1050 on 05/17/21.
[2021-05-17] MEDS ORDERED: LIDOCAINE 1% 20 ML MDV ONE (11:10)
--- NOTE | 2021-05-17 11:29 | P.OP ---
Preoperative diagnosis: LEFT Tension Pneumothorax Postoperative diagnosis: LEFT Tension Pneumothorax Primary procedure: Placement of LEFT Thoracostomy Tube Anesthesia: Local 1% lidocaine Estimated blood loss: <1cc Specimen: none Findings: air immediately returned Complications: None Drain(s): Other (18 Fr Thal Chest tube) Transferred to: ICU Condition: Critical
[2021-05-17] MEDS ORDERED: GLUCAGON 1 MG/VIAL IM PRN (12:00)
[2021-05-17] MEDS ORDERED: D50W 25 GM/50 ML SYRINGE IV PRN (12:00)
--- NOTE | 2021-05-17 12:13 | RAD REPORT ---
EXAM DESCRIPTION: RAD - Chest Single View - 05/17/2021 12:04 pm CLINICAL HISTORY: chest tube placement COMPARISON: Chest Single View dated 05/17/2021; Chest Single View dated 05/17/2021; Chest Single View da shelly 05/16/2021; Chest Single View dated 05/15/2021 FINDINGS: Interval placement of a left-sided chest tube with only small residual left apical pneumot horax and re-expansion of the left lung. Note that the proximal side port appears to be within the so ft tissues. Multifocal airspace disease again noted. IMPRESSION: Near complete resolution of the left-sided pneumothorax. Note that the proximal hole on the chest tube is external to the lung and within the soft tissues.
[2021-05-17] MEDS: INSULIN -REGULAR HUMAN 50 UNIT/0.5 ML ML SQ SCH ×2 (13:27→17:45)
[2021-05-17] MEDS: ENOXAPARIN 40 MG/0.4 ML SQ SCH (17:09)
[2021-05-17] MEDS: AA 4.25 %/D5W/ELECTROLYTES 2,000 ML, WATER FOR INJ,STERILE 250 ML with MULTIVITAMINS IN... IV SCH ×3 (17:49)
--- NOTE | 2021-05-17 20:47 | CON ---
Date of Consultation: 05/17/2021 Reason For Consultation: Left tension pneumothorax. Brief History Of Present Illness: The patient is a 56-year-old female, who was admitted on 1 with acute COVID-19 pneumonia, shortness of breath, difficulty breathing. She was noted to have re spiratory distress. Ultimately was seen in the hospital and ultimately transferred to the ICU and e was tested positive for COVID-19 pneumonia and was significantly hypoxic. She was on BiPAP during my examination and as such, she was short of breath with saturations in the mid to lower 80s, respiri ng at approximately 30 respirations 10 per minute, and stretching all the way to 35-40 respirations p er minute at times. Past medical history and information are obtained predominantly from the chart. Past Medical History: Negative. Past Surgical History: Negative. Family History: Noncontributory. Social History: The patient denies smoking, alcohol, or recreational drug use. Review of Systems: Ten-point review of systems unable to obtain. Medications: None. Allergies: NO KNOWN DRUG ALLERGIES. Physical Examination: Vital Signs: At time of my examination; her temperature 97.2, heart rate was 106, respiratory rate w as 27, all the way up to 33 during my examination, blood pressure 144/89. Her saturations were 87% d uring my examination. Her BMI was 36.2. HEENT: She is otherwise normocephalic. A BiPAP is in place. As such, oropharynx is obscured. Neck: Supple without JVD. Chest: Has decreased expansion and excursion and there were absent breath sounds on the left. Skin: Otherwise warm and dry. Cardiovascular: She was tachycardic, but otherwise regular rhythm. Laboratory Data: She had a laboratory exam, which revealed a white blood cell count of 10.2, hemoglo bin 13.5, hematocrit 40.3, platelet count was 181. Her sodium 136, potassium 4.4, chloride 101, carb on dioxide is 30, BUN 30, creatinine 0.5, her glucose is 306. She had a chest x-ray performed on at 6 a.m., which was officially read as decreased lung volumes with probable unchanged mild bilate ral airspace disease that may reflect multifocal pneumonia. She developed worsening respiratory dist ress and as such, a repeat chest x-ray performed on 05/17 at 10:20 a.m., which showed large left-side d pneumothorax with suspected tension component. Assessment And Plan: This is a 56-year-old female with COVID-19 pneumonia and evidence of a tension pneumothorax on the left. I have explained risks, benefits, and alternatives of placement of an emergency left thoracostomy tub e including, but not limited to bleeding, infection, damage to surrounding tissues, injury to lung an d mediastinal structures including heart and other chest structures, need for further operation and p rocedures. The patient's family agreed to proceed. Thank you for this interesting consult. MISBAH/DEONTE Voice ID: [id number] Report ID: [id number]
--- NOTE | 2021-05-17 21:25 | OP ---
Date of Procedure: 05/17/2021 Surgeon: Rosalio Park MD, Preoperative Diagnosis: Left tension pneumothorax. Postoperative Diagnosis: Left tension pneumothorax. Procedure Performed: Placement of left thoracostomy tube, 18-Greek. Anesthesia: 1% lidocaine used. Estimated Blood Loss: Less than 1 mL. Specimen: None. Findings: Air immediately returned. Complication: None. Drains: An 18-Greek Thal chest tube placed in the left thoracic cavity. Disposition: The patient remained in ICU in critical condition throughout the procedure. Procedure In Detail: After informed consent was obtained, the patient was prepped and draped in the usual sterile fashion after adequate anesthesia was achieved with 1% lidocaine in the left mid to ant erior axillary line. I anesthetized the skin and having the patient's breast and adipose tissue dist racted anteriorly, I made a small jeremy incision and palpated the area overlying the rib approximately fifth and sixth intercostal space. I then used a finder needle to cannulate the tract into the thor acic cavity going over the rib. At this point, air was returned. The wire was advanced through the needle and the needle was removed at this point. I then performed sequential dilatation using Seldin frantz technique over the wire and ultimately placed an 18-Greek Thal chest tube into the left thoracic cavity. Air was immediately returned at this point and I hooked the Pneumovax system to this after removing the wire and the system was immediately noted to have air bubbles and was tidaling quite wel l. At this point, the chest tube was secured to the skin with the 2-0 nylon suture and a sterile donny ssing placed over top. The patient tolerated the procedure well without complication, remained in [facility] ICU in critical condition throughout the procedure. All counts were correct at the end of the case . TK/MODL Voice ID: [id number] Report ID: [id number]
[2021-05-18] MEDS: INSULIN -REGULAR HUMAN 50 UNIT/0.5 ML ML SQ SCH ×5 (00:12→23:42)
[2021-05-18] MEDS: HYDROMORPHONE HCL 0.5 MG/0.5 ML INJ IV PRN ×3 (03:01→19:41)
[2021-05-18 05:32] LABS: Absolute Lymphocytes (CBC) 0.1 K/uL (0.7-4.9); Basophils % 0.2 % (0-1.3); Hematocrit 45.9 % (36.0-45.0); Lymphocytes % 1.2 % (15.3-44.8); MPV 7.7 fL (7.6-11.3); RBC Red Blood Cell Count 4.99 M/uL (3.86-4.86)
--- NOTE | 2021-05-18 05:54 | P.PN ---
Subjective Date of Service: 05/18/21 Primary Care Provider: unknown Chief Complaint: Respiratory failure Subjective: Other (Patient remained stable currently on BiPAP at 100%) Patient appears comfortable. BiPAP at 96% Physical Examination - Vital Signs Temperature: 98.2 F Blood Pressure: 112/86 Pulse: 100 Respirations: 22 Pulse Ox (%): 92 - Studies Medications List Reviewed: Yes Assessment & Plan Discharge Plan: Home Plan to discharge in: Greater than 2 days Physician Review Additional Text: COVID: Positive, unvaccinated CT scan chest: COMPARISON: No comparisons FINDINGS: Chest Wall: No suspicious thyroid nodules or pathologic lymphadenopathy. Lungs: Moderate bilateral airspace disease Pleura: No significant effusions or pneumothorax. Mediastinum/hima: No pathologic lymphadenopathy. Pulmonary arteries/Aorta: No filling defect identified. No aortic aneurysm. Heart: No significant pericardial effusion. Normal heart size. Upper abdomen: No acute abnormality. Hepatic steatosis. Bones: No acute abnormality. IMPRESSION: Negative for pulmonary embolism. Moderate bilateral airspace disease concerning for multifocal pneumonia, including Covid-19. Initial Chest x-ray: COMPARISON: No comparisons FINDINGS: Moderate patchy bilateral airspace disease per The heart size is within normal limits.No acute osseous abnormality. No significant pleural effusions or pneumothorax. IMPRESSION: Moderate patchy bilateral airspace disease concerning for multifocal pneumonia, including Covid-19. Follow-up chest x-ray 05/16/2021: COMPARISON: Chest Single View dated 05/15/2021; Chest Single View dated 05/15/2021; Chest Single View dated 05/13/2021; Chest Single View dated 05/12/2021 FINDINGS: Lungs: Similar patchy airspace disease bilaterally. Pleural: No significant pleural effusions or pneumothorax. Cardiac: The heart size is within normal limits. Bones: No acute fractures. Lines: None. IMPRESSION: No significant change in aeration of the lungs compared with 05/15/2021 with similar patchy bilateral airspace disease. Chest tube: Date of Procedure: 05/17/2021 Surgeon: Rosalio Park MD Preoperative Diagnosis: Left tension pneumothorax. Postoperative Diagnosis: Left tension pneumothorax. Procedure Performed: Placement of left thoracostomy tube, 18-Bulgarian. Anesthesia: 1% lidocaine used. Estimated Blood Loss: Less than 1 mL. Specimen: None. Findings: Air immediately returned. Complication: None. Drains: An 18-Bulgarian Thal chest tube placed in the left thoracic cavity. Surgery: Date: 05/18/21 09:45 Preoperative diagnosis: LEFT pneumothrorax, prior tube retracted by patient Postoperative diagnosis: LEFT pneumothrorax, prior tube retracted by patient Primary procedure: replacement of LEFT Thoracostomy Tube Secondary procedure: removal of LEFT thoracostomy tube Anesthesia: 1% lidocaine Estimated blood loss: <2cc Specimen: none Findings: air immediately returned Complications: None Drain(s): Other (16 Fr Thal Chest tube) Follow up CXR after replacement: CLINICAL HISTORY: Device placement/central left chest tube placement IMPRESSION: Left chest tube in good position with tip overlying the left upper hemithorax. Minimal left apical pneumothorax Physical exam: General: Patient appears stable. Less anxious today. HEENT: Oropharynx moist. Neck: Supple Respiratory: Chest tube in place. Currently on BiPAP at 100% Cardiovascular: Regular rate/rhythm, Normal S1 S2, No murmurs Gastrointestinal: Normal bowel sounds, Soft and benign, Non-distended, No tenderness Musculoskeletal: No clubbing, No swelling, No tenderness Integumentary: No rashes Neurological: Normal gait, Normal speech, Normal strength at 5/5 x4 extr, Normal tone, Sensation intact, Cranial nerves 3-12 intact, Normal affect Lymphatics: No axilla or inguinal lymphadenopathy Impression: Dyspnea secondary to acute respiratory failure with hypoxia secondary to bilateral Covid pneumonia, unvaccinated, with mild pneumomediastinum/left pneum othorax status post chest tube placement with replacement of chest tube Hyperlipidemia Rheumatoid arthritis GERD Obesity, BMI 32.8 Plan: Dyspnea secondary to acute respiratory failure with hypoxia secondary to bilateral Covid pneumonia, unvaccinated, with mild pneumomediastinum/left pneumothorax status post chest tube placement with replacement of chest tube: Chest x-ray this morning shows chest tube retracted. Case discussed with surgery. Surgery performed replacement of chest tube. Patient currently on 100% BiPAP. PICC line in place. Continue TPN. Continue to maintain sats above 93%. Wean off BiPAP. Continue IV steroids, vitamin supplementation. CRP improved. Continue to monitor CRP and ferritin. Patient remains on Rocephin and Diflucan. Patient remains DO NOT INTUBATE. Continue Lovenox. Continue with surgery and pulmonology recommendations Hyperlipidemia: Continue fenofibrate. Rheumatoid arthritis: Continue with sulfasalazine 1000 mg 1 pill twice daily, gabapentin 300 mg daily and Cymbalta 60 mg daily. Medication for pain provided. GERD: Continue with Pepcid Oral candidiasis: Continue with Diflucan Leukocystosis: Continue with current meds to cover for opportunistic infection. Obesity, BMI 32.8: Continue lifestyle modification education CODE STATUS: This was addressed in detail with the patient. Patient remains DO NOT INTUBATE DVT prophylaxis: Lovenox Advance care [id number] minutes: Long-term acute care facility placement Time Spent Managing Pts Care (In Minutes): 55
[2021-05-18 06:04] LABS: ALT/SGPT 64 U/L (12-78); AST/SGOT 47 U/L (15-37); Albumin 2.6 g/dL (3.4-5.0); Alkaline Phosphatase 119 U/L (45-117); BUN Blood Urea Nitrogen 34 mg/dL (7-18); Bicarbonate 27 mmol/L (21-32); Bilirubin Total 1.3 mg/dL (0.2-1.0); Glucose Level 273 mg/dL (74-106); Magnesium 2.4 mg/dL (1.8-2.4); Potassium 4.6 mmol/L (3.5-5.1); Protein, Total 6.2 g/dL (6.4-8.2); Sodium Level 137 mmol/L (136-145)
[2021-05-18] MEDS: SUCRALFATE 1 GM TABLET PO SCH ×4 (07:30→21:00)
[2021-05-18] MEDS: ASPIRIN EC 81 MG TAB PO SCH (07:43)
[2021-05-18] MEDS: DULOXETINE 30 MG CAP PO SCH (07:44)
[2021-05-18] MEDS: SULFASALAZINE 500 MG E.C. TAB PO SCH ×2 (07:44→21:00)
[2021-05-18] MEDS: FLUCONAZOLE 100 MG TAB PO SCH (07:44)
[2021-05-18] MEDS: ENSURE HIGH PROTEIN 237 ML CAN PO SCH ×2 (07:45→21:00)
[2021-05-18] MEDS: FOLIC ACID 1 MG TABLET PO SCH (07:45)
[2021-05-18] MEDS: FAMOTIDINE 20 MG TAB PO SCH ×2 (07:45→21:00)
[2021-05-18] MEDS: ZINC SULFATE 220 MG CAP PO SCH (07:46)
[2021-05-18] MEDS: FENOFIBRATE 160 MG TAB PO SCH (07:46)
[2021-05-18] MEDS: FUROSEMIDE 20 MG/ 2ML VIAL IV SCH (08:12)
[2021-05-18] MEDS: METHYLPREDNISOLONE 125 MG INJ IV SCH ×2 (08:12→19:41)
[2021-05-18] MEDS: CEFTRIAXONE/SWI 1gm 1 GM/10 ML SYR IV SCH (08:12)
--- NOTE | 2021-05-18 08:37 | RAD REPORT ---
EXAM DESCRIPTION: RAD - Chest Single View - 05/18/2021 5:46 am CLINICAL HISTORY: Respiratory failure Chest pain. COMPARISON: Chest Single View dated 05/17/2021; Chest Single View dated 05/17/2021; Chest Single View da shelly 05/17/2021; Chest Single View dated 05/16/2021 FINDINGS: Portable technique limits examination quality. Small left apical pneumothorax is present estimated at 5-10% of lung volume. A left-sided chest tube is in place however the tip of the chest tube appears very close to the chest wall and is retracted r elative to yesterday's study. Bilateral pulmonary opacities mild progression since the comparative st udy. The heart is upper limit normal in size. Left-sided PICC line is unchanged in position. IMPRESSION: The left-sided chest tube has retracted since yesterday's study with its tip near the ch est wall. A small left apical pneumothorax is present estimated at 5-10% of lung volume.
--- NOTE | 2021-05-18 09:45 | P.OP ---
Date of Service: 05/18/21 Findings and Operative Technique NAME: ORSEY MARTINEZ ADMITTING: Viv Beatty MD ADMIT DATE:04/27/21 ATTENDING: Tian Bruce DO : 1965 ACCOUNT NO:[id number] PATIENT TYPE:ADM IN LOCATION: [address] [place] [address] Date of Procedure: 05/18/21 Surgeon: Rosalio Park MD Date of Procedure: 05/18/2021 Surgeon: Rosalio Park MD, MD Preoperative Diagnosis: Left tension pneumothorax / Prior tube retracted Postoperative Diagnosis: Left tension pneumothorax Prior tube retracted Procedure Performed: Replacement of left thoracostomy tube, 16-Dutch. -Removal of prior LEFT chest tube Anesthesia: 1% lidocaine used. Estimated Blood Loss: Less than 1 mL. Specimen: None. Findings: Air immediately returned. Complication: None. Drains: An 16-Dutch Thal chest tube placed in the left thoracic cavity. Disposition: The patient remained in ICU in critical condition throughout the procedure. Procedure In Detail: After informed consent was obtained, the patient was prepped and draped in the usual sterile fashion after adequate anesthesia was achieved with 1% lidocaine in the left mid to anterior axillary line. I anesthetized the skin and having the patient's breast and adipose tissue distracted anteriorly, I made a small jeremy incision and palpated the area overlying the rib approximately fifth and sixth intercostal space. I then used a finder needle to cannulate the tract into the thoracic cavity going over the rib. At this point, air was returned. The wire was advanced through the needle and the needle was removed at this point. I then performed sequential dilatation using Seldinger technique over the wire and ultimately placed an 16- Dutch Thal chest tube into the left thoracic cavity. Air was immediately returned at this point and I hooked the Pneumovax system to this after removing the wire and the system was immediately noted to have air bubbles and was tidaling quite well. At this point, the chest tube was secured to the skin with the 2-0 nylon suture and a sterile dressing placed over top. The prior chest tube was removed @ bedside. The patient tolerated the procedure well without complication, remained in the ICU in critical condition throughout the procedure. All counts were correct at the end of the case. TK/MODL Voice ID: [id number] Report ID: [id number]
--- NOTE | 2021-05-18 09:46 | P.OP ---
Preoperative diagnosis: LEFT pneumothrorax, prior tube retracted by patient Postoperative diagnosis: LEFT pneumothrorax, prior tube retracted by patient Primary procedure: replacement of LEFT Thoracostomy Tube Secondary procedure: removal of LEFT thoracostomy tube Anesthesia: 1% lidocaine Estimated blood loss: <2cc Specimen: none Findings: air immediately returned Complications: None Drain(s): Other (16 Fr Thal Chest tube)
--- NOTE | 2021-05-18 09:48 | P.PN ---
Date of Service: 05/18/[address] George that patient had become agitated and pulled LEFT chest tube out somewhat, it was placed yesterday - chest x ray confirmed malposition of chest tube - i have discussed the risks, benefits and alteratives of replacement of chest tube and removal of prior chest tube
[2021-05-18] MEDS ORDERED: LIDOCAINE 1% 20 ML MDV ONE (09:50)
--- NOTE | 2021-05-18 10:44 | RAD REPORT ---
EXAM DESCRIPTION: RAD - Chest Single View - 05/18/2021 10:35 am CLINICAL HISTORY: chest tube placement Chest pain. COMPARISON: Chest Single View dated 05/18/2021; Chest Single View dated 05/17/2021; Chest Single View da shelly 05/17/2021; Chest Single View dated 05/17/2021 FINDINGS: Portable technique limits examination quality. The left-sided chest tube has been repositioned or replaced with its tip now in the medial left apex. A small apical pneumothorax is present probably around 5% of lung volume. The heart is normal in siz e. Moderate bilateral pulmonary opacities are unchanged.Left-sided PICC line is stable in position.
--- NOTE | 2021-05-18 11:27 | P.PN ---
Subjective Date of Service: 05/18/21 Primary Care Provider: unknown Chief Complaint: Respiratory failure No change patient is still requiring high concentrations of oxygen the chest tube was reinserted this morning Review of Systems is unable to be obtained Physical Examination - Vital Signs Temperature: 97.3 F Blood Pressure: 139/88 Pulse: 107 Respirations: 30 Pulse Ox (%): 89 - Physical Exam General: Unresponsive - Studies Medications List Reviewed: Yes Assessment & Plan - Problems (Diagnosis) (1) Pneumonia due to COVID-19 virus Current Visit: Yes Status: Acute Plan: Respiratory failure chest tube was reinserted chest x-ray still shows significant bilateral changes patient still requiring high concentrations of oxygen on TPN right now labs reviewed no change in treatment still 100% FiO2 Physician Review: Patient Assessed, Agree with Above Assessment and Plan
[2021-05-18] MEDS ORDERED: HYDROMORPHONE HCL 0.5 MG/0.5 ML INJ IV ONE (14:00)
--- NOTE | 2021-05-18 14:02 | RAD REPORT ---
EXAM DESCRIPTION: RADChest Single View05/18/2021 1:38 pm CLINICAL HISTORY: Device placement/central left chest tube placement IMPRESSION: Left chest tube in good position with tip overlying the left upper hemithorax. Minimal left apical pneumothorax
[2021-05-18] MEDS: AA 4.25 %/D5W/ELECTROLYTES 2,000 ML, Lipids 20% 250 ML with MULTIVITAMINS INJ 10 ML IV SCH ×3 (17:51)
[2021-05-18] MEDS: ENOXAPARIN 40 MG/0.4 ML SQ SCH (17:51)
[2021-05-18] MEDS: LORazepam 2 MG/ML VIAL IV PRN (18:35)
[2021-05-19] MEDS: HYDROMORPHONE HCL 0.5 MG/0.5 ML INJ IV PRN (00:53)
[2021-05-19] MEDS: LORazepam 2 MG/ML VIAL IV PRN ×2 (03:04→12:48)
[2021-05-19] MEDS: MORPHINE 2 MG/ML SYR IV PRN ×3 (03:42→13:34)
[2021-05-19] MEDS ORDERED: MORPHINE 2 MG/ML SYR ONE (04:05)
--- NOTE | 2021-05-19 05:59 | P.PN ---
Subjective Date of Service: 05/19/21 Primary Care Provider: unknown Chief Complaint: Respiratory failure Subjective: Worsening (Patient requiring medication for agitation. Tachycardia and tachypnea noted) Patient appears comfortable. BiPAP at 96% Physical Examination - Vital Signs Temperature: 97 F Blood Pressure: 127/96 Pulse: 108 Respirations: 27 Pulse Ox (%): 90 - Studies Medications List Reviewed: Yes Assessment & Plan Discharge Plan: Home Plan to discharge in: Greater than 2 days Physician Review Additional Text: COVID: Positive, unvaccinated CT scan chest: COMPARISON: No comparisons FINDINGS: Chest Wall: No suspicious thyroid nodules or pathologic lymphadenopathy. Lungs: Moderate bilateral airspace disease Pleura: No significant effusions or pneumothorax. Mediastinum/hima: No pathologic lymphadenopathy. Pulmonary arteries/Aorta: No filling defect identified. No aortic aneurysm. Heart: No significant pericardial effusion. Normal heart size. Upper abdomen: No acute abnormality. Hepatic steatosis. Bones: No acute abnormality. IMPRESSION: Negative for pulmonary embolism. Moderate bilateral airspace disease concerning for multifocal pneumonia, including Covid-19. Initial Chest x-ray: COMPARISON: No comparisons FINDINGS: Moderate patchy bilateral airspace disease per The heart size is within normal limits.No acute osseous abnormality. No significant pleural effusions or pneumothorax. IMPRESSION: Moderate patchy bilateral airspace disease concerning for multifocal pneumonia, including Covid-19. Follow-up chest x-ray 05/16/2021: COMPARISON: Chest Single View dated 05/15/2021; Chest Single View dated 05/15/2021; Chest Single View dated 05/13/2021; Chest Single View dated 05/12/2021 FINDINGS: Lungs: Similar patchy airspace disease bilaterally. Pleural: No significant pleural effusions or pneumothorax. Cardiac: The heart size is within normal limits. Bones: No acute fractures. Lines: None. IMPRESSION: No significant change in aeration of the lungs compared with 05/15/2021 with similar patchy bilateral airspace disease. Chest tube: Date of Procedure: 05/17/2021 Surgeon: Rosalio Park MD Preoperative Diagnosis: Left tension pneumothorax. Postoperative Diagnosis: Left tension pneumothorax. Procedure Performed: Placement of left thoracostomy tube, 18-Turkish. Anesthesia: 1% lidocaine used. Estimated Blood Loss: Less than 1 mL. Specimen: None. Findings: Air immediately returned. Complication: None. Drains: An 18-Turkish Thal chest tube placed in the left thoracic cavity. Surgery: Date: 05/18/21 09:45 Preoperative diagnosis: LEFT pneumothrorax, prior tube retracted by patient Postoperative diagnosis: LEFT pneumothrorax, prior tube retracted by patient Primary procedure: replacement of LEFT Thoracostomy Tube Secondary procedure: removal of LEFT thoracostomy tube Anesthesia: 1% lidocaine Estimated blood loss: <2cc Specimen: none Findings: air immediately returned Complications: None Drain(s): Other (16 Fr Thal Chest tube) Follow up CXR after replacement: Repeat CXR shows not no pneumothorax. Discussed with Radiology Physical exam: General:Increased anxiety. Patient has gotten [place] Allen. Will get Ativan HEENT: Oropharynx moist. Neck: Supple Respiratory: Chest tube in place. Currently on BiPAP at 100%. Increased muscle use. Cardiovascular: tachycardia Gastrointestinal: Normal bowel sounds, Soft and benign, Non-distended, No tenderness Musculoskeletal: No clubbing, No swelling, No tenderness Integumentary: No rashes Neurological: Normal gait, Normal speech, Normal strength at 5/5 x4 extr, Normal tone, Sensation intact, Cranial nerves 3-12 intact, Normal affect Lymphatics: No axilla or inguinal lymphadenopathy Impression: Dyspnea secondary to acute respiratory failure with hypoxia secondary to bilateral Covid pneumonia, unvaccinated, with mild pneumomediastinum/left pneumothorax status post chest tube placement with replacement of chest tube with COVID encephalopathy Hyperlipidemia Rheumatoid arthritis GERD Obesity, BMI 32.8 Plan: Dyspnea secondary to acute respiratory failure with hypoxia secondary to bilateral Covid pneumonia, unvaccinated, with mild pneumomediastinum/left pneumothorax status post chest tube placement with replacement of chest tube with COVID encephalopathy: Her conditions continues to decline. More agitation noted. COVID encephalopathy noted. Repeat stat CXR shows no pneumothorax. Patient anni Christensenmaverick winston Stuartviktoria. Will provide Ativan. Case discussed with Pulmonary and Surgery. Case discussed with sons and . Patient remains on BIPAP. Sats in the 70s. Patient remains DNI. Anticipate further decline. Will try to continue with medication for agitation. Hyperlipidemia: Continue fenofibrate. Rheumatoid arthritis: Continue with sulfasalazine 1000 mg 1 pill twice daily, gabapentin 300 mg daily and Cymbalta 60 mg daily. Medication for pain provided. GERD: Continue with Pepcid Oral candidiasis: Continue with Diflucan Leukocystosis: Continue with current meds to cover for opportunistic infection. Obesity, BMI 32.8: Continue lifestyle modification education CODE STATUS: Patient remains DO NOT INTUBATE DVT prophylaxis: Lovenox [facility] [id number] minutes: Long-term acute care facility placement Critical care: 60 minutes Critical Care: Yes Time Spent Managing Pts Care (In Minutes): 60
[2021-05-19] MEDS: INSULIN -REGULAR HUMAN 50 UNIT/0.5 ML ML SQ SCH ×3 (06:07→17:14)
[2021-05-19] MEDS: SUCRALFATE 1 GM TABLET PO SCH ×4 (07:30→19:12)
--- NOTE | 2021-05-19 08:01 | RAD REPORT ---
EXAM DESCRIPTION: Joshua Single View05/19/2021 7:11 am CLINICAL HISTORY: Chest pain COMPARISON: May 18, 2000 FINDINGS: Left chest tube place without visualization of pneumothorax No significant change in the bilateral pulmonary opacities. Heart is borderline enlarged IMPRESSION: No significant change bilateral pulmonary opacities
[2021-05-19 08:11] LABS: Absolute Lymphocytes (CBC) 0.3 K/uL (0.7-4.9); Basophils % 0.1 % (0-1.3); Hematocrit 49.3 % (36.0-45.0); Lymphocytes % 3.7 % (15.3-44.8); MPV 8.7 fL (7.6-11.3); RBC Red Blood Cell Count 5.36 M/uL (3.86-4.86)
[2021-05-19] MEDS: FENOFIBRATE 160 MG TAB PO SCH (09:00)
[2021-05-19] MEDS: FOLIC ACID 1 MG TABLET PO SCH (09:00)
[2021-05-19] MEDS: DULOXETINE 30 MG CAP PO SCH (09:00)
[2021-05-19] MEDS: SULFASALAZINE 500 MG E.C. TAB PO SCH ×2 (09:00→19:12)
[2021-05-19] MEDS: FAMOTIDINE 20 MG TAB PO SCH ×2 (09:00→19:12)
[2021-05-19] MEDS: ASPIRIN EC 81 MG TAB PO SCH (09:00)
[2021-05-19] MEDS: FLUCONAZOLE 100 MG TAB PO SCH (09:00)
[2021-05-19] MEDS: ENSURE HIGH PROTEIN 237 ML CAN PO SCH ×2 (09:00→19:12)
[2021-05-19] MEDS: ZINC SULFATE 220 MG CAP PO SCH (09:00)
[2021-05-19 09:07] LABS: ALT/SGPT 99 U/L (12-78); Albumin 2.8 g/dL (3.4-5.0); Alkaline Phosphatase 123 U/L (45-117); BUN Blood Urea Nitrogen 44 mg/dL (7-18); Bicarbonate 30 mmol/L (21-32); Bilirubin Total 2.3 mg/dL (0.2-1.0); Ferritin 5028.2 ng/mL (8-388); Glucose Level 280 mg/dL (74-106); Protein, Total 6.2 g/dL (6.4-8.2); Sodium Level 136 mmol/L (136-145)
[2021-05-19 09:36] LABS: AST/SGOT 51 U/L (15-37); Magnesium 2.3 mg/dL (1.8-2.4); Potassium 4.8 mmol/L (3.5-5.1)
[2021-05-19] MEDS ORDERED: WATER FOR INJ,STERILE 10 ML IM PRN (10:25)
[2021-05-19] MEDS ORDERED: ZIPRASIDONE MESYLA 20 MG/VIAL IM PRN ×2 (10:25→10:48)
[2021-05-19] MEDS: FUROSEMIDE 20 MG/ 2ML VIAL IV SCH (10:46)
[2021-05-19] MEDS: CEFTRIAXONE/SWI 1gm 1 GM/10 ML SYR IV SCH (10:47)
[2021-05-19] MEDS: METHYLPREDNISOLONE 125 MG INJ IV SCH (10:47)
[2021-05-19] MEDS ORDERED: HALOPERIDOL LACT 5 MG/ML INJ IV ONE (11:38)
[2021-05-19] MEDS ORDERED: HALOPERIDOL LACT 5 MG/ML INJ ONE (11:40)
--- NOTE | 2021-05-19 11:44 | RAD REPORT ---
EXAM DESCRIPTION: Joshua Single View05/19/2021 11:33 am CLINICAL HISTORY: Respiratory distress COMPARISON: May 19, 2021 FINDINGS: Slight worsening in diffuse bilateral pulmonary opacities. A left chest tube has been readjusted with its tip overlying the upper left hemithorax. A pneumothora x is not visualized. Heart is normal size IMPRESSION: Slight worsening in diffuse bilateral pulmonary opacities
[2021-05-19] MEDS ORDERED: FUROSEMIDE 20 MG/ 2ML VIAL IV ONE (11:50)
[2021-05-19] MEDS ORDERED: HALOPERIDOL LACT 5 MG/ML INJ IV PRN (11:52)
--- NOTE | 2021-05-19 11:52 | P.PN ---
Subjective Date of Service: 05/19/21 Primary Care Provider: unknown Chief Complaint: Respiratory failure Patient's condition is worsening very hypoxic agitated Review of Systems is unable to be obtained Physical Examination - Vital Signs Temperature: 96.8 F Blood Pressure: 123/79 Pulse: 109 Respirations: 43 Pulse Ox (%): 74 - Physical Exam General: Moderate distress - Studies Medications List Reviewed: Yes Assessment & Plan - Problems (Diagnosis) (1) Pneumonia due to COVID-19 virus Current Visit: Yes Status: Acute Plan: Respiratory failure respiratory failure patient's condition is worsening chest x-ray no change s/p pneumothorax had a chest tube inserted yesterday 1 dose of Lasix 1 dose of Lasix Geodon for agitation prognosis poor patient has refused intubation patient is on TPN Physician Review: Patient Assessed, Agree with Above Assessment and Plan
[2021-05-19 13:25] LABS: Platelet Estimate DECR
[2021-05-19 13:26] LABS: Blood Morphology Comment NOT SEEN (NOT SEEN); Dohle Bodies PRESENT; Toxic Granulation 1+
[2021-05-19 16:53] VITALS: TEMP 96.8
[2021-05-19] MEDS: AA 4.25 %/D5W/ELECTROLYTES 2,000 ML, WATER FOR INJ,STERILE 250 ML with MULTIVITAMINS IN... IV SCH ×3 (17:04)
[2021-05-19] MEDS: ENOXAPARIN 40 MG/0.4 ML SQ SCH (17:13)
[2021-05-19] MEDS ORDERED: NOREPINEPHRINE 4 MG in D5W 250 ML IV PRN (17:30)
[2021-05-19 18:14] VITALS: O2SAT 80
[2021-05-19 20:45] VITALS: BP 129/30
--- NOTE | 2021-05-19 23:56 | P.DS ---
Admission Date: 04/27/21 Discharge Date: 05/19/21 Primary Care Provider: unknown Disposition: Discharge Condition: Reason for Admission: Respiratory failure Consultations: Surgery- Dr. Park Procedures: Most recent chest x-ray 05/19/2021 FINDINGS: Slight worsening in diffuse bilateral pulmonary opacities. A left chest tube has been readjusted with its tip overlying the upper left hemithorax. A pneumothorax is not visualized. Heart is normal size IMPRESSION: Slight worsening in diffuse bilateral pulmonary opacities CT chest 04/27/2021 FINDINGS: Chest Wall: No suspicious thyroid nodules or pathologic lymphadenopathy. Lungs: Moderate bilateral airspace disease Pleura: No significant effusions or pneumothorax. Mediastinum/hima: No pathologic lymphadenopathy. Pulmonary arteries/Aorta: No filling defect identified. No aortic aneurysm. Heart: No significant pericardial effusion. Normal heart size. Upper abdomen: No acute abnormality. Hepatic steatosis. Bones: No acute abnormality. IMPRESSION: Negative for pulmonary embolism. Moderate bilateral airspace disease concerning for multifocal pneumonia, including Covid-19. Left-sided chest tube 05/17/2021 Medical problem list Dyspnea secondary to acute respiratory failure with hypoxia secondary to bilateral Covid pneumonia, unvaccinated, with mild pneumomediastinum/left pneumothorax status post chest tube placement with replacement of chest tube with COVID encephalopathy Hyperlipidemia Rheumatoid arthritis GERD Obesity, BMI 32.8 Brief History of Present Illness: Patient is a 56-year-old female came to the hospital with difficulty breathing. Patient was having respiratory distress. Patient could not catch her breath so she came into the emergency room for further evaluation. Patient's was diagnose with COVID-19 pneumonia on Friday about 5 days ago. She was tested a couple of days ago. She was hypoxic and came into the ER for evaluation Hospital Course: Patient was admitted for COVID-19 pneumonia, had prolonged hospital stay which was complicated with left-sided pneumothorax status post chest tube insertion. Patient elected for DO NOT INTUBATE status and was therefore DNR. Patient's condition is very poor over the last week. This evening patient became hypoxic and suffered cardiac arrest, DNR was in place, patient at 2000. Family notified. Vital Signs/Physical Exam: Temp Pulse Resp BP Pulse Ox 96.8 F 133 H 39 H 129/30 L 89 L 05/19/21 16:00 05/19/21 19:00 05/19/21 19:00 05/19/21 19:00 05/19/21 19:00 General: Unresponsive Neck: Other (No palpable pulse) Cardiovascular: Other (No heart sounds) Laboratory Data at Discharge: WBC 7.20 K/uL (4.3-10.9) 05/19/21 06:15 Hgb 16.4 g/dL (12.0-15.0) H 05/19/21 06:15 Hct 49.3 % (36.0-45.0) H 05/19/21 06:15 Plt Count 110 K/uL (152-406) L D 05/19/21 06:15 PT 13.7 SECONDS (9.5-12.5) H 04/27/21 13:40 INR 1.19 04/27/21 13:40 APTT 26.4 SECONDS (24.3-36.9) 04/27/21 13:40 Sodium 136 mmol/L (136-145) 05/19/21 06:15 Potassium 4.8 mmol/L (3.5-5.1) 05/19/21 06:15 BUN 44 mg/dL (7-18) H 05/19/21 06:15 Creatinine 0.67 mg/dL (0.55-1.3) 05/19/21 06:15 Glucose 280 mg/dL (74-106) H 05/19/21 06:15 Phosphorus 3.5 mg/dL (2.5-4.9) 05/12/21 07:07 Magnesium 2.3 mg/dL (1.8-2.4) 05/19/21 06:15 Total Bilirubin 2.3 mg/dL (0.2-1.0) H 05/19/21 06:15 AST 51 U/L (15-37) H 05/19/21 06:15 ALT 99 U/L (12-78) H 05/19/21 06:15 Alkaline Phosphatase 123 U/L (45-117) H 05/19/21 06:15 Triglycerides 105 mg/dL (<150) 04/28/21 04:59 Cholesterol 121 mg/dL (<200) 04/28/21 04:59 HDL Cholesterol 62 mg/dL (40-60) H 04/28/21 04:59 Cholesterol/HDL Ratio 1.95 04/28/21 04:59 Lipase 152 U/L (73-393) 04/27/21 13:40 Home Medications: Celecoxib [Celebrex*] 60 mg PO DAILY 04/29/21 Duloxetine [Cymbalta *] 60 mg PO DAILY 04/29/21 Gabapentin 300 mg PO DAILY 04/29/21 Rosuvastatin [Crestor*] 10 mg PO BEDTIME 04/29/21 sulfaSALAzine [Sulfasalazine] 2 tab PO BIDPC 04/29/21 Physician Discharge Instructions: May she rest in peace Followup: SUSAN DAVIS [Primary Care Provider] - Time spent managing pt's care (in minutes): 35
== END 2021-05-19 20:01 | disposition expired | DRG 177 ==
LOC: ER 12:29 → ERHOLD 18:39 → 4TH 04-28 21:53 → 3RD-ICU 05-12 22:10
PROVIDERS: ADMIT Hospitalist; ATTEND Hospitalist
PROC: 5A09557 Assistance with Respiratory Ventilation, Greater than 96 Consecutive Hours, Continuous Positive Airway Pressure (ICD-10-PCS; 2021-05-11)
PROC: 02HV33Z Insertion of Infusion Device into Superior Vena Cava, Percutaneous Approach (ICD-10-PCS; 2021-05-15)
PROC: 0W9B30Z Drainage of Left Pleural Cavity with Drainage Device, Percutaneous Approach (ICD-10-PCS; principal; 2021-05-17)
PROC: 0WPB30Z Removal of Drainage Device from Left Pleural Cavity, Percutaneous Approach (ICD-10-PCS; 2021-05-18)
PROC: 0W9B30Z Drainage of Left Pleural Cavity with Drainage Device, Percutaneous Approach (ICD-10-PCS; 2021-05-18)
DX: U07.1 COVID-19 (principal); J12.82 Pneumonia due to coronavirus disease 2019; J96.01 Acute respiratory failure with hypoxia; J93.0 Spontaneous tension pneumothorax; B37.0 Candidal stomatitis; G93.49 Other encephalopathy; J98.2 Interstitial emphysema; M06.9 Rheumatoid arthritis, unspecified; E78.5 Hyperlipidemia, unspecified; E66.9 Obesity, unspecified; Z68.36 Body mass index [BMI] 36.0-36.9, adult; K21.9 Gastro-esophageal reflux disease without esophagitis; D72.829 Elevated white blood cell count, unspecified; F41.9 Anxiety disorder, unspecified; R45.1 Restlessness and agitation; Z66 Do not resuscitate
CPT/HCPCS: 36415; 36569; 71045; 71275; 80048; 80053; 80061; 80076; 82728; 82805; 82947; 83605; 83690; 83735; 83880; 84100; 84145; 84484; 85025; 85379; 85610; 85730; 86140; 87040; 93005; 94003; 94010; 94640; 94660; 94760; 96372; 96374; 97110; 97161; 97530; 99284; J0696; J1100; J1170; J1450; J1630; J1650; J1940; J2270; J2405; J2920; J2930; J3262; J3486; J7030; J7799; Q9967; U0003